=== PATIENT | female | born 1940 | race Caucasian/White ===

== ENCOUNTER 2017-11-19 08:56 | Day surgery (SDC) | payer MEDICARE, OTHER, SELFPAY ==
--- NOTE | 2017-11-19 09:15 | EKG12_ITS ---
Test Reason : PREOP Blood Pressure : / mmHG Vent. Rate : 087 BPM Atrial Rate : 087 BPM P-R Int : 182 ms QRS Dur : 092 ms QT Int : 362 ms P-R-T Axes : 054 012 022 degrees QTc Int : 435 ms Normal sinus rhythm Normal ECG No previous ECGs available Confirmed by LUC HERNANDEZ, KATY ([id number]), publishing editor ESTEE CLARK ([id number]) on 11/23/2017 1:07:03 PM Referred By: Holden Tsang Confirmed By:KATY CALLE MD
--- NOTE | 2017-11-19 09:19 | RAD_ITS ---
STUDY: X-RAY CHEST REASON FOR EXAM: Female, 77 years old. SOB, PRE OP FOR LEFT WRIST FX TECHNIQUE: Single AP portable view of the chest. COMPARISON: None. FINDINGS: The lungs are clear and expanded. There is no demonstrated pleural abnormality. Normal size heart. Normal mediastinum and krissy. Normal visualized pulmonary arteries. Normal visualized aortic arch and descending thoracic aorta. There is demineralization of the osseous structures. There is degenerative osteoarthritis of the bilateral shoulders. There is a hiatal hernia measures 5 cm. RAD/Chest 1 View (Portable) IMPRESSION: Degenerative changes, as described above. No demonstrated acute cardiopulmonary process. There is a hiatal hernia measures 5 cm. Electronically Signed: Padmini Valente MD at 10:23 EDT Tel , Service support ,
[2017-11-19 09:45] VITALS: BP 130/71; PULSE 88; RESP 20; TEMP 37.2; O2SAT 94; BMI 28.0
[2017-11-19 10:01] LABS: Hematocrit 33.7 % (37-47); Mean Corp Hgb Conc 32.6 g/gl (32-36); Mean Corpuscular Hgb 29.6 pg (27.0-32.0); Mean Corpuscular Volume 90.8 fL (81-99); Mean Platelet Vol. 8.7 fl (6.2-12.0); Platelet Count 308 K/mm3 (150-450); RBC Distribution Width CV 14.4 % (11.6-14.6); Red Blood Count 3.71 M/mm3 (4.2-5.4); White Blood Count 6.1 K/mm3 (4.4-11.0)
[2017-11-19 10:06] LABS: Scan Indicated on CBC? Y/N NO
[2017-11-19 10:13] LABS: AST(SGOT) 14 U/L (15-37); Alanine Aminotransfer ALT/SGPT 13 U/L (13-56); Albumin, Serum 2.9 g/dL (3.2-5.0); Alkaline Phosphatase 67 U/L (45-117); Anion Gap 6 (5-15); BUN 12 mg/dL (7-18); BUN/Creat Ratio 9.2 RATIO (10-20); Bilirubin, Direct 0.07 mg/dL (0.00-0.30); Chloride 105 mmol/L (98-107); Creatinine, Serum 1.31 mg/dL (0.55-1.02); EST Glomerular Filtration Rate 42 mL/min (>60); Est Glom Filt Rate - Afr Amer 51 mL/min (>60); Estimated Creatinine Clearance 33.39 ml/min; Globulin 4.4 g/dL (2.2-4.2); Glucose 100 mg/dL (74-106); Potassium 3.9 mmol/L (3.5-5.1); Protein, Total 7.3 g/dL (6.4-8.2); Sodium Level 139 mmol/L (136-145)
[2017-11-19 10:21] LABS: Partial Thromboplast Time 24.7 Seconds (24.1-36.2)
[2017-11-19] MEDS: Cefazolin 1 GM/50 ML BAG IV (11:12)
--- NOTE | 2017-11-19 11:16 | PCM.DC.ORTHO ---
Discharge Diet: No Restrictions Discharge Activity: May Not Drive, May Shower - keep dressing clean and dry Ice area for (Minutes): 20 Keep extremity elevated above heart level: Left Arm Call your doctor if your incision/area has: Continuous Slow Oozing, Sudden Increased Bleeding, Increased Pain/ Swelling, Increased Redness, Foul Smelling Discharge Call your doctor if you observe: Fever of 101 or Higher, Coldness, Increased Pain, Numbness or Tingling, Change in Color Suture Line Care: Avoid Pulling/Pushing Cleanse incision/area with: Keep Dressing Clean & Dry - Do not remove dressing Allergies/Adverse Reactions: Allergies atorvastatin calcium [From Lipitor] Allergy (Verified 11/15/17 10:04) Unknown Penicillins Allergy (Verified 11/19/17 09:43) Hives propoxyphene HCl [From Darvon] Allergy (Verified 11/15/17 10:04) Other Sulfa (Sulfonamide Antibiotics) Allergy (Verified 11/15/17 10:04) Unknown codeine Adverse Reaction (Verified 11/15/17 10:04) Upset Stomach oxycodone [From Percocet] Adverse Reaction (Verified 11/19/17 09:42) Vomiting Medications to take at Discharge Aspirin 325 mg PO DAILY@0800 03/06/16 Folic Acid 1 mg PO DAILY@0800 03/06/16 Melatonin 3 mg PO QHS 03/06/16 Omeprazole [Prilosec] 20 mg PO DAILY 03/06/16 Thiamine HCl [B-1] 100 mg PO DAILY 03/06/16 Calcium Carbonate [Tums] 500 mg PO Q6H PRN PRN 04/18/16 Lamotrigine [Lamictal Xr] 200 mg PO DAILY 04/18/16 Vitamin B Comp W-C [Allbee W/C Caplet, Thera B Comp/C] 1 capsule PO DAILY 04/18/16 Donepezil HCl [Aricept] 10 mg PO QHS 05/01/16 losartan 25 mg tablet 25 mg PO QDAY #30 tab 10/24/17 Cholecalciferol (Vitamin D3) [Vitamin D3] 5,000 unit PO DAILY 11/15/17 Lorazepam [Ativan] 0.5 mg PO DAILY PRN PRN 11/15/17 Mirtazapine 30 mg PO QHS 11/15/17 Tramadol HCl [Ultram] 50 mg PO Q6H PRN PRN 7 Days #40 tablet 11/19/17 The following prescriptions were given: Tramadol HCl [Ultram] 50 mg PO Q6H PRN PRN 7 Days #40 tablet PRN Reason: Pain Please Follow Up With: Holden Tsang, DO When: next week
--- NOTE | 2017-11-19 11:21 | PCM.OPRPT ---
Report of Operation Date of Procedure: 11/19/17 Pre-Operative Diagnosis: Left distal radius fracture displaced Post-Operative Diagnosis: Left distal radius fracture displaced Surgery/Procedure Performed:: Closed reduction with percutaneous pin fixation of left distal radius Description of Surgical Findings:: Displaced and angulated distal radius fracture plastic tool maker: Miguel Villanueva Type of Anesthesia:: General Anesthesiologist: Trever Amos Estimated Blood Loss (mL): 5 Fluids Replaced: See anesthesia report Description of Procedure: Implants: 0.054 inch K wire ?3 Surgical indications: Please see history and physical Procedure description: Dolores was greeted in the preoperative area. Her left wrist was marked with surgical marker. Preoperative antibiotics were administered. Patient was then taken or [address] the stable condition. After adequate anesthesia was obtained and airway secured the arm was prepped and draped in usual sterile fashion. Surgical timeout was performed and surgery was commenced. Biplanar fluoroscopic imaging was utilized to identify the fracture. This was displaced and shortened with dorsal angulation. A closed reduction maneuver was then performed in the wrist was then held in a reduced fashion and a K wire was placed in the dorsal lip of the radius advanced into the bone and secured to the volar cortex of the radius. This was done on 2 separate occasions maintaining the reduction. Third K wire was then placed at the tip of the radial styloid. This was then advanced into the styloid across the fracture site and then into the lateral cortex of the radius securing this reduction. Final imaging was obtained. The pins were then bent and trimmed at the skin well-padded nonadherent dressings applied and secured with a volar Ortho-Glass splint. Patient was taken to recovery room in stable condition. - Complications None known - Admit VTE Documentation VTE Present on Admission: Yes VTE Mechan Device Prophylaxis: None VTE Pharm Prophylaxis ordered?: No Reason prophylaxis not ordered:: Procedure Not Indicated
[2017-11-19 12:01] VITALS: BP 129/75; BP 130/71; PULSE 92; RESP 16; TEMP 37; O2SAT 98
[2017-11-19 12:15] VITALS: BP 124/79; BP 130/71; PULSE 90; RESP 16; O2SAT 95
[2017-11-19 12:30] VITALS: BP 130/71; BP 155/88; PULSE 85; RESP 16; O2SAT 97
[2017-11-19 12:33] VITALS: BP 130/71; BP 148/81; PULSE 83; RESP 16; TEMP 36.8; O2SAT 96
[2017-11-19 14:27] VITALS: BP 130/71
--- NOTE | 2017-11-19 22:05 | RAD_ITS ---
CLINICAL HISTORY: Female, 77 years old. Lower back pain PROCEDURE: Percutaneous pinning lt wrist FLUOROSCOPY TIME (if supplied): (29.8) seconds. 3 Images. RADIATION DOSAGE (If Supplied By Facility): CTDIvol = ( ) mGy, DLP = ( ) mGycm TECHNIQUE: Percutaneous pinning lt wrist RAD/Wrist min 3 Views IMPRESSION: Percutaneous pinning lt wrist Electronically Signed: Padmini Valente MD at 14:40 EDT Tel , Service support ,
== END 2017-11-19 14:28 | disposition home or self-care (01) ==
LOC: SDC 08:58 → AC 09:00
PROVIDERS: Anesthesiology; Family Provider Family Medicine; PCP Family Medicine; Visit Provider Orthopaedic Surgery
PROC: (CPT 25609; principal; 2017-11-19 10:40)
DX: S52.572A Other intraarticular fracture of lower end of left radius, initial encounter for closed fracture (principal); I10 Essential (primary) hypertension; K21.9 Gastro-esophageal reflux disease without esophagitis; F41.9 Anxiety disorder, unspecified; E66.3 Overweight; Z68.33 Body mass index [BMI] 33.0-33.9, adult; Z86.2 Personal history of diseases of the blood and blood-forming organs and certain disorders involving the immune mechanism; Z85.3 Personal history of malignant neoplasm of breast; Z79.82 Long term (current) use of aspirin; Z87.891 Personal history of nicotine dependence; Z79.899 Other long term (current) drug therapy; W01.0XXA Fall on same level from slipping, tripping and stumbling without subsequent striking against object, initial encounter; Y93.89 Activity, other specified; Y92.89 Other specified places as the place of occurrence of the external cause; Y99.8 Other external cause status
CPT/HCPCS: 25609; 36416; 71045; 73110; 76000; 80048; 80076; 85027; 85610; 85730; 93005; J7120; J2405

== ENCOUNTER → 2018-06-25 09:03 | Outpatient (CLI) | payer MEDICARE, OTHER, SELFPAY ==
--- NOTE | 2018-06-25 09:04 | NM_ITS ---
CLINICAL: 78-year-old female with reported history of chronic nausea. SEMI-SOLID PHASE 99m Tc SULFUR COLLOID GASTRIC EMPTYING STUDY COMPARISON: None available FINDINGS: The patient was administered 1.1 mCi of 99m Tc sulfur colloid mixed with oatmeal and consumed per os. Image acquisitions in the anterior-posterior projections for a total of 60 minutes. There is prompt visualization of the stomach. There is no gastroesophageal reflux identified. The T1/2 linear fit was calculated to be 53.7 minutes, (Normal: 12-56 minutes). NM/Gastric Emptying Study IMPRESSION: 1. NORMAL 99m Tc sulfur colloid semi-solid phase (oatmeal) gastric emptying imaging examination. A. There is upper limits of normal, relatively preserved semi-solid phase gastric emptying compared to normal controls with maintained first order kinetics throughout all components of the examination. (Jacqueline et al, J Nucl Med Tech 38: 186, 2010). Electronically Signed: Joshua Bautista DO at 23:43 EST Tel , Service support ,
== END ==
PROVIDERS: Family Provider Preventive Medicine Occupational Medicine; PCP Preventive Medicine Occupational Medicine; Referring Provider Internal Medicine Medical Oncology; Visit Provider Internal Medicine Medical Oncology
DX: R11.2 Nausea with vomiting, unspecified (principal)
CPT/HCPCS: 78264; A9541

== ENCOUNTER → 2019-02-06 | Outpatient (CLI) | payer MEDICARE, OTHER, SELFPAY ==
[2018-08-14 11:29] VITALS: BMI 30.4
--- NOTE | 2019-02-06 14:56 | RAD_ITS ---
HISTORY: Unequal limb length, recent right femur ORIF October 2018. Y STILL XR Bone Length Studies Scanograms TECHNIQUE: Standing AP radiographs of the pelvis and lower extremities were obtained. # of images incl. paperwork: 7 COMPARISON: None. FINDINGS: FINDINGS Right lower extremity from the top of the femoral head through the tibial plafond measures 72.5 cm. Left lower extremity from the top of the femoral head through the tibial plafond measures 74.5 cm. Right femur from the top of the femoral head through the medial femoral condyle measures 40.5 cm. Left emur from the top of the femoral head through the medial femoral condyle measures 42.0 cm. Right tibia from the intercondylar eminence through the tibial plafond measures 32.0 cm. Left tibia from the intercondylar eminence through the tibial plafond measures 32.5 cm. IMPRESSION Leg discrepancy with shortening of right lower extremity by 2.0 cm. at 1511 Reported and signed by: Demetrio Laureano MD Electronically Signed: Demetrio Laureano MD at 15:09 EDT Tel , Service support , RAD/Bone Length
== END | disposition home or self-care (01) ==
LOC: RAD 14:51
PROVIDERS: Family Provider Preventive Medicine Occupational Medicine; PCP Preventive Medicine Occupational Medicine; Referring Provider Specialist; Visit Provider Specialist
DX: M21.751 Unequal limb length (acquired), right femur (principal)
CPT/HCPCS: 77073

== ENCOUNTER 2020-10-20 10:50 | Emergency (ER) | payer MEDICARE, OTHER, SELFPAY ==
[2020-06-02 14:34] VITALS: BMI 29.7
[2020-10-20 10:50] VITALS: BP 113/67; PULSE 69; RESP 18; TEMP 36.6; O2SAT 99; BMI 28.3
[2020-10-20] MEDS: 0.9% Normal Saline 1,000 ML 1000 ML IV (11:30)
[2020-10-20] MEDS: Ondansetron 4 MG/2 ML Vial IV (11:30)
[2020-10-20 11:34] LABS: Absolute Neutrophil Count 5.9 X10^3/uL (2.0-7.7); Basophil# 0.03 X10^3/uL; Basophil% 0.4 % (0-1); Eosinophil# 0.11 X10^3/uL; Eosinophils% 1.3 % (0-5); Hemoglobin 13.2 g/dL (12.0-15.0); Lymphocyte % 19.2 % (19-41); Mean Corpuscular Hgb 28.9 pg (27.0-32.0); Mean Corpuscular Volume 87.5 fL (81-99); Mean Platelet Vol. 11.4 fl (6.2-12.0); Monocyte# 0.63 X10^3/uL; Monocyte% 7.6 % (0-10); NRBC Flagged by Analyzer 0.2 % (0-5); Neutrophil # 5.94 X10^3/uL (2.7-7.7); Neutrophil % 71.1 % (47-70); Platelet Count 281 K/mm3 (150-450); RBC Distribution Width CV 14.5 % (11.6-14.6); RBC Distribution Width SD 45.4 fl (35.1-43.9); Red Blood Count 4.57 M/mm3 (4.2-5.4); White Blood Count 8.3 K/mm3 (4.4-11.0)
--- NOTE | 2020-10-20 11:40 | RAD_ITS ---
STUDY: X-RAY CHEST REASON FOR EXAM: Female, 80 years old. Chest pain TECHNIQUE: AP and lateral views of the chest. COMPARISON: Comparison is made with prior study dated 11/19/2017. FINDINGS: Surgical clips are seen in the left axillary region. The lungs are clear and expanded. There is no demonstrated pleural abnormality. Normal size heart. Normal mediastinum and krissy. Normal visualized pulmonary arteries. There is atherosclerotic calcification of the aortic arch with tortuosity. A loop recorder device is seen overlying the left cardiac border. There is demineralization of the osseous structures. Almost complete collapse of the mid dorsal vertebrae. Prior vertebroplasty of the T12 and L1 vertebrae. Normal visualized ribs, clavicles, and shoulders. There is no demonstrated abnormality of the visualized soft tissue structures of the upper abdomen. RAD/Chest PA and Lateral IMPRESSION: No acute abnormality is seen. Electronically Signed: Raul Dailey MD at 12:05 EST , Service support ,
[2020-10-20 11:47] LABS: ALB/GLOB Ratio 0.8 RATIO (0.9-2.4); AST(SGOT) 17 U/L (15-37); Alanine Aminotransfer ALT/SGPT 9 U/L (13-56); Albumin, Serum 3.4 g/dL (3.2-5.0); Alkaline Phosphatase 96 U/L (45-117); Anion Gap 9 (5-15); BUN 11 mg/dL (7-18); BUN/Creat Ratio 10.3 RATIO (10-20); Calcium,Total 9.4 mg/dL (8.5-10.1); Chloride 100 mmol/L (98-107); Creatinine, Serum 1.07 mg/dL (0.55-1.02); EST Glomerular Filtration Rate 53 mL/min (>60); Est Glom Filt Rate - Afr Amer 64 mL/min (>60); Estimated Creatinine Clearance 35.84 ml/min; Globulin 4.5 g/dL (2.2-4.2); Glucose 83 mg/dL (74-106); Magnesium 2.2 mg/dL (1.6-2.6); Potassium 3.6 mmol/L (3.5-5.1); Protein, Total 7.9 g/dL (6.4-8.2); Sodium Level 137 mmol/L (136-145)
--- NOTE | 2020-10-20 12:27 | ED.VIS.GEN ---
History of Present Illness Chief Complaint: Dizziness Narrative: Patient presenting for evaluation secondary to lightheadedness. Patient was at the ENT office today for treatment of vertigo. She had an Thomas maneuver performed, and had improvement of her vertigo but was complaining of persistent issues with dizziness that she describes as a lightheadedness. Patient is actually been dealing with this over the course of the last month. She has been having issues with regurgitating fluids and food after eating and drinking. She reports that she will have multiple episodes of this every day. Patient denies that it necessarily associated with pain. She is able to swallow things, but then vomits them up shortly thereafter. She states that she is feels as if she is getting dehydrated, ENT sent her to the emergency department due to concerns for that. She denies any chest pain or shortness of breath. Patient has had work-ups for this in the past. She was seen at an outside facility emergency department and was thought to have an element of anxiety and was recently started on twice daily Ativan. No fevers associated with this. No throat pain associated with this. Review of systems otherwise negative. Past Medical History - Allergies and Home Meds Allergies/Adverse Reactions: Allergies atorvastatin calcium [From Lipitor] Allergy (Verified 10/20/20 10:53) Unknown Penicillins Allergy (Verified 10/20/20 10:53) Hives propoxyphene HCl [From Darvon] Allergy (Verified 10/20/20 10:53) Other Sulfa (Sulfonamide Antibiotics) Allergy (Verified 10/20/20 10:53) Unknown codeine Adverse Reaction (Verified 10/20/20 10:53) Upset Stomach iron Adverse Reaction (Verified 10/20/20 10:53) Vomiting oxycodone [From Percocet] Adverse Reaction (Verified 10/20/20 10:53) Vomiting Primary Care Physician: Chris Mendes MD [Primary Care Provider] - Prior records reviewed: Yes Past Medical History: - - Dysphagia, hypertension, dementia, atrial fibrillation Surgical History: cataract, hysterectomy, mastectomy, - - Loop records implant. Lives: Alone Smoking Status: Former smoker Alcohol: None Drugs: None - Family History Paternal Family History: Reports: - - Father had a cerebral aneurysm Sibling Family History: Reports: Cancer - Sister with breast cancer Maternal Family History: Reports: Cancer - Mother had breast cancer, No pertinent history Review of Systems All systems negative except as indicated General: Reports: - - Lightheadedness. Denies: Weight loss Eyes: Denies: Visual changes - bilaterally, Diplopia ENT: Reports: - - If occult he swallowing with frequent vomiting Cardiovascular: Denies: Chest pain, Palpitations Respiratory: Denies: Dyspnea, Cough, Dyspnea on exertion Gastrointestinal: Denies: Abdominal pain, Nausea, Vomiting, Diarrhea, Melena, Hematochezia Genitourinary: Denies: Dysuria, Hematuria, Frequency Musculoskeletal: Denies: Back pain, Extremity Pain Skin: Denies: Rash, Wounds Neurological: Denies: Headache, Weakness, Numbness Physical Exam Vital Signs/Narrative: Vital Signs Temp Pulse Resp BP Pulse Ox 10/20/20 10:50 98 F 69 18 113/67 99 Inital Vital Signs reviewed: Yes General: Well nourished, Well developed, - - Elderly female who appears anxious but is otherwise not in physiologic distress Head: Normocephalic, Atraumatic Eyes: Perrl, EOMI ENT: Moist mucous membranes, No rhinorrhea Neck: Supple, Nontender Cardiovascular: Regular rate, Regular rhythm, No murmurs Respiratory: No distress, CTA bilaterally, Chest nontender Abdomen: Soft, Nontender, Nondistended, Normal bowel sounds Back: Nontender, Normal Inspection Extremities: Nontender, No edema Skin: Normal color, No rash Neurological: Alert, Oriented x3, Cranial nerves II-XII grossly intact, Normal Strength, Normal Sensation Psychological: - - Anxious Diagnostic/Tx/Re-eval Chest X-Ray - ED: 2 View, Read by ED Physician, Normal Clinical Impression(s) from Imaging Studies Chest X-Ray 10/20/20 11:40 IMPRESSION: No acute abnormality is seen. Electronically Signed: Raul Dailey MD at 12:05 EST , Service support , Laboratory Data 10/20/20 10/20/20 11:25 11:25 WBC 8.3 RBC 4.57 Hgb 13.2 Hct 40.0 MCV 87.5 MCH 28.9 MCHC 33.0 RDW Std Deviation 45.4 H RDW Coeff of Junaid 14.5 Plt Count 281 MPV 11.4 Immature Gran % (Auto) 0.400 Neut % (Auto) 71.1 H Lymph % (Auto) 19.2 [place] % (Auto) 7.6 Eos % (Auto) 1.3 Baso % (Auto) 0.4 Absolute Neuts (auto) 5.9 Absolute Lymphs (auto) 1.60 Nucleated RBC % 0.2 Sodium 137 Potassium 3.6 Chloride 100 Carbon Dioxide 28.0 Anion Gap 9 BUN 11 Creatinine 1.07 H Estim Creat Clear Calc 35.84 Est GFR (MDRD) Af Amer 64 Est GFR (MDRD) Non-Af 53 L BUN/Creatinine Ratio 10.3 Glucose 83 Calcium 9.4 Magnesium 2.2 Total Bilirubin 0.70 AST 17 ALT 9 L Alkaline Phosphatase 96 Total Protein 7.9 Albumin 3.4 Globulin 4.5 H Albumin/Globulin Ratio 0.8 L - Medical Decision Making Patient presented with reports that she was having difficulty with keeping down food or liquids. She does not state that this is a difficulty swallowing but rather regurgitation after she eats or drinks. IV was established patient was given a liter of saline and Zofran. Patient's CBC chemistry and magnesium were found to be unremarkable she actually has better renal function than she did in May. No electrolyte derangements. Patient passed p.o. challenge in the emergency department. I reviewed the patient's records, she has had gastric emptying studies as well as barium swallows that show some potential delayed emptying, as well as some aspiration with her barium swallow in the past. At this point she is tolerating p.o. and has no electrolyte derangements and I do not feel that she requires admission. I believe the patient can safely be referred to general surgery for upper endoscopy as an outpatient. Patient was discharged in stable condition. ED Disposition - Plan for ED Patient: Disposition: Home or Assisted Living Diagnosis: Emesis Instructions: ED Dehydration (Adult) Referrals: Fantasma Jolley MD [STAFF PHYSICIAN] - As soon as possible
[2020-10-20] MEDS: 0.9% Normal Saline 1,000 ML 999 ML IV (12:42)
[2020-10-20 12:50] VITALS: BP 119/71; PULSE 66; RESP 18; O2SAT 96
[2020-10-20 15:18] VITALS: BP 121/77; PULSE 65; RESP 18; O2SAT 96
== END 2020-10-20 15:22 | disposition home or self-care (01) ==
PROVIDERS: Emergency Provider Emergency Medicine; PCP Family Medicine
DX: R11.10 Vomiting, unspecified (principal); I10 Essential (primary) hypertension; F03.90 Unspecified dementia, unspecified severity, without behavioral disturbance, psychotic disturbance, mood disturbance, and anxiety; I48.91 Unspecified atrial fibrillation; Z79.02 Long term (current) use of antithrombotics/antiplatelets; Z79.899 Other long term (current) drug therapy; Z87.891 Personal history of nicotine dependence
CPT/HCPCS: 71046; 80053; 83735; 85025; 96361; 96374; 99282; J7030; A4216; J2405

== ENCOUNTER 2020-10-27 11:11 | Day surgery (SDC) | payer MEDICARE, OTHER, SELFPAY ==
[2020-10-25 10:22] VITALS: BMI 28.2
[2020-10-27] VITALS (7 sets, daily range): BP systolic 121–135; BP diastolic 73–85; PULSE 88–103; RESP 16–18; TEMP 36.3–36.6; O2SAT 97–100; BMI 25.7
--- NOTE | 2020-10-27 08:21 | HP_ITS ---
Intake Vital Signs 10/25/20 Height 5 ft 3 in 10/25/20 Weight: 159 lb 4 oz 10/25/20 BMI 28.2 10/25/20 BP 87/54 L 10/25/20 Blood Pressure Location Lt brachial 10/25/20 Position Sitting 10/25/20 Respiration 16 10/25/20 Pulse 84 10/25/20 Pulse Source NIBP 10/25/20 Temp 98.1 F 10/25/20 Temp Source Temporal 10/25/20 Pulse Oximetry (%) 97 10/25/20 Oxygen Delivery Method room air Intake Visit Reasons: ER F/U EGD, EMESIS Chief Complaint: EGD/ emesis Ant[employer] Collector Required: No Is patient in pain?: No Allergies atorvastatin calcium [From Lipitor] Allergy (Verified 10/25/20 10:21) Unknown Penicillins Allergy (Verified 10/25/20 10:21) Hives propoxyphene HCl [From Darvon] Allergy (Verified 10/25/20 10:21) Other Sulfa (Sulfonamide Antibiotics) Allergy (Verified 10/25/20 10:21) Unknown codeine Adverse Reaction (Verified 10/25/20 10:21) Upset Stomach iron Adverse Reaction (Verified 10/25/20 10:21) Vomiting oxycodone [From Percocet] Adverse Reaction (Verified 10/25/20 10:21) Vomiting Medications Propranolol HCl [Inderal (Beta Seth)] 20 mg PO BID 06/19/18 [History Confirmed 10/25/20] Carbidopa/Levodopa [Sinemet] 2 tab PO QHS 07/02/18 [History Confirmed 10/25/20] lorazepam 0.5 mg tablet 0.5 mg PO BID-TID PRN 07/19/18 [History Confirmed 10/25/20] lamotrigine 25 mg tablet 25 mg PO DAILY tab 02/13/19 [History Confirmed 10/25/20] rivaroxaban 15 mg tablet 15 mg PO DAILY #30 tab 02/17/20 [Rx Confirmed 10/25/20] Pantoprazole Sodium [Protonix] 40 mg PO DAILY 06/02/20 [History Confirmed 10/25/20] Promethazine HCl 25 mg PO DAILY 06/02/20 [History Confirmed 10/25/20] Is last menstrual period known: No Post menopausal: Yes Patient : No PFSH Medical History Iron deficiency (Resolved) Dementia (Chronic) Essential hypertension (Chronic) Paroxysmal A-fib (Chronic) GERD (gastroesophageal reflux disease) (Chronic) History of breast cancer (Chronic) Syncope (Chronic) Leukocytosis (Acute) Anemia (Chronic) Anxiety (Chronic) Bipolar disorder (Chronic) Dysphagia (Acute) Iron deficiency anemia (Chronic) Compression fracture of L1 lumbar vertebra (Acute) Chronic use of benzodiazepine for therapeutic purpose (Chronic) C. difficile diarrhea (Acute) Diverticulitis large intestine (Acute) Fall (Acute) Intestinal malabsorption, unspecified (Acute) Vertigo (Acute) History of CVA (cerebrovascular accident) (Chronic) Parkinsons disease (Chronic) Restless leg (Chronic) Cephalalgia (Resolved) Dehydration (Resolved) HAP (hospital-acquired pneumonia) (Resolved) Hypokalemia (Resolved) Hypomagnesemia (Resolved) Hypophosphatemia (Resolved) Nausea and vomiting (Resolved) Sepsis (Resolved) Severe sepsis (Resolved) Vomiting (Resolved) Surgical History Hip fracture, right (Resolved) History of bilateral mastectomy (Resolved) History of hysterectomy (Resolved) History of mastectomy (Inactive) Family History (Updated 10/25/20 @ 10:21 by [place]) Other Breast cancer Hypertension Social History (Updated 10/25/20 @ 10:[address] Fantasma Jolley MD) Smoking Status: Former smoker HPI HPI HPI: KATERIN SANDOVAL, is a 80 F who presents to the office today for HPI HPI Surgical H&P: Yes HPI: KATERIN SANDOVAL, is a 80 F who presents to the office today for Dysphagia. The patient reports that she is not able to tolerate any eating and immediately throws up. She says it is undigested. She says is been going on since September. She has no chest pain or abdominal pain. No blood in her stool. She reports that she does have liquid stool when she does a bowel movement she is having weight loss and dehydration due to not being able to eat. ROS General General: Yes weight change, fatigue and breast cancer; no appetite, colon cancer or weakness HEENT HEENT: Yes difficulty swallowing; no eye injury, eye surgery, swollen glands or hoarseness Endo Endocrine: No thyroid disease, diabetes mellitus, thyroid cancer, Hair loss, heat intolerance or cold intolerance Musc Musculoskeletal: Yes arthritis; no back problems, rheumatoid arthritis, gout or joint pain Cardio Cardiovascular: Yes atrial fibrillation and high blood pressure; no murmur, pacemaker, heart disease, heart attack, heart stent, palpitations, shortness of breat with exertion or chest pain Psych Psychiatric: Yes depression and anxiety; no hearing voices Resp Respiratory: No shortness of breath, No sleep apnea, No cough, No COPD, No asthma, No emphysema, No wheezing Gastro Gastrointestinal: No abdominal pain, Yes nausea or vomiting, Yes diarrhea, No constipation, No blood in stool, Yes acid reflux, No hemorrhoids, No ulcers, No gallbladder problem, No black,tarry stools [place] Hematologic: No blood thinners, No blood disorders, No bleeding, No anemia, No blood clots Neuro Neurologic: No weakness Exam Const General: cooperative, anxious Orientation: alert, oriented x3 Resp Effort & Inspection: normal respiratory effort Auscultation: clear to auscultation bilaterally Cardio Rate: regular rate Rhythm: regular rhythm Heart Sounds: no murmurs GI Inspection: non-distended Palpation: soft, nontender Assessment & Plan Problems 1. Dysphagia R13.10 aspirates thin liquids on the MBS Plan The patient is very tearful and anxious. She says that she has ongoing vertigo with dizziness but this is a new symptom and she is unable to tolerate solid or liquid. I discussed EGD with her with possible dilation. I will have her hold her Xarelto for 2 days. I explained endoscopy in detail to the patient. I explained the risks including but not limited to stroke or heart attack with anesthesia, perforation of the GI tract, bleeding, infection. I explained that any of these could necessitate further emergency surgery. The patient understands and all questions were answered sufficiently. The patient wishes to proceed with procedure. Fantasma Jolley MD Pager: [facility] [address] [place] [address], [address] [place] [address] Office: Orders Orders: EGD Today R13.10 Coding Level of Care Code Off vis,new,level 3 Diagnoses Dysphagia R13.10 ??Dysphagia type: unspecified I have re-examined the patient. There are no clinical changes since date of exam.
[2020-10-27] MEDS: Lactated Ringers 1,000 ML 100 ML IV (12:10)
--- NOTE | 2020-10-27 13:33 | OP.CCLET_ITS ---
10/27/2020 Chris Mendes Re : Upper GI endoscopy procedure for Dolores Wright Dear Vaughn This procedure was performed on Tuesday, October 27, 2020. My impressions and recommendations are as follows: Impressions : - Benign-appearing esophageal stenosis. - Normal stomach. - Normal examined duodenum. - No specimens collected. Recommendations : - Discharge patient to home. - Resume previous diet. - Continue present medications. My findings are described in the full procedure note, which is enclosed. If I can be of further assistance, please feel free to contact me at Doctor phone number(s): , Work: . Sincerely, Fantasma Jolley MD 10/27/2020 1:32:35 PM This report has been signed electronically.
--- NOTE | 2020-10-27 13:33 | OP.EGD_ITS ---
Patient Name: Dolores Wright Procedure Date: 10/27/2020 12:46 PM Date of : 1940 Age: 80 Procedure: Upper GI endoscopy Indications: Dysphagia Providers: Fantasma Jolley MD Referring MD: Fantasma Jolley MD Medicines: Monitored Anesthesia Care Patient Profile: This is a 80 year old female. Refer to note in patient chart for documentation of history and physical. Complications: No immediate complications. Procedure: Pre-Anesthesia Assessment: - Prior to the procedure, a History and Physical was performed, and patient medications and allergies were reviewed. The patient's tolerance of previous anesthesia was also reviewed. The risks and benefits of the procedure and the sedation options and risks were discussed with the patient. All questions were answered, and informed consent was obtained. Prior Anticoagulants: The patient has taken Xarelto (rivaroxaban), last dose was 2 days prior to procedure. After reviewing the risks and benefits, the patient was deemed in satisfactory condition to undergo the procedure. After obtaining informed consent, the endoscope was passed under direct vision. Throughout the procedure, the patient's blood pressure, pulse, and oxygen saturations were monitored continuously. The gastroscope was introduced through the mouth, and advanced to the third part of duodenum. The upper GI endoscopy was accomplished without difficulty. The patient tolerated the procedure well. Scope In: 12:53:49 PM Scope Out: 12:58:13 PM Total Procedure Duration Time 0 hours 4 minutes 24 seconds Findings: One benign-appearing, intrinsic stenosis was found in the proximal esophagus. This stenosis was moderately severe (circumferential scarring or stenosis; an endoscope may pass) and. The stenosis was traversed. The stomach was normal. The examined duodenum was normal. Impression: - Benign-appearing esophageal stenosis. - Normal stomach. - Normal examined duodenum. - No specimens collected. Recommendation: - Discharge patient to home. - Resume previous diet. - Continue present medications. Procedure Code(s): --- Professional --- 16848, Esophagogastroduodenoscopy, flexible, transoral; diagnostic, including collection of specimen(s) by brushing or washing, when performed (separate procedure) Diagnosis Code(s): --- Professional --- K22.2, Esophageal obstruction R13.10, Dysphagia, unspecified CPT copyright 2017 [place]. All rights reserved. The codes documented in this report are preliminary and upon planning specialist review may be revised to meet current compliance requirements. Fantasma Jolley MD 10/27/2020 1:32:35 PM This report has been signed electronically. Number of Addenda: 0 Note Initiated On: 10/27/2020 12:46 PM
== END 2020-10-27 14:18 | disposition home or self-care (01) ==
LOC: EN 11:13 → AC 11:14
PROVIDERS: PCP Family Medicine; Referring Provider Surgery; Visit Provider Surgery
PROC: 0DJ08ZZ Inspection of Upper Intestinal Tract, Via Natural or Artificial Opening Endoscopic (ICD-10-PCS; CPT 43235; principal; 2020-10-27 12:25)
DX: K22.2 Esophageal obstruction (principal); I48.0 Paroxysmal atrial fibrillation; K21.9 Gastro-esophageal reflux disease without esophagitis; G20 Parkinson's disease; F02.80 Dementia in other diseases classified elsewhere, unspecified severity, without behavioral disturbance, psychotic disturbance, mood disturbance, and anxiety; F32.9 Major depressive disorder, single episode, unspecified; F41.9 Anxiety disorder, unspecified; Z86.73 Personal history of transient ischemic attack (TIA), and cerebral infarction without residual deficits; Z20.822 Contact with and (suspected) exposure to COVID-19; Z79.02 Long term (current) use of antithrombotics/antiplatelets; Z79.899 Other long term (current) drug therapy; Z87.891 Personal history of nicotine dependence
CPT/HCPCS: 43235; 87426; C9803; J7120; J2405

== ENCOUNTER 2020-10-29 12:55 | Day surgery (SDC) | payer MEDICARE, OTHER, SELFPAY ==
[2020-10-29] VITALS (7 sets, daily range): BP systolic 118–136; BP diastolic 69–77; PULSE 65–93; RESP 16; TEMP 35.7–36.5; O2SAT 96–98; BMI 25.6
--- NOTE | 2020-10-29 05:36 | HP_ITS ---
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 Is patient in pain?: No Allergies atorvastatin calcium [From Lipitor] Allergy (Verified 10/27/20 11:39) Unknown Penicillins Allergy (Verified 10/27/20 11:39) Hives propoxyphene HCl [From Darvon] Allergy (Verified 10/27/20 11:39) Other Sulfa (Sulfonamide Antibiotics) Allergy (Verified 10/27/20 11:39) Unknown codeine Adverse Reaction (Verified 10/27/20 11:39) Upset Stomach iron Adverse Reaction (Verified 10/27/20 11:39) Vomiting oxycodone [From Percocet] Adverse Reaction (Verified 10/27/20 11:39) Vomiting Is last menstrual period known: No Post menopausal: Yes Patient : No PFSH Medical History Iron deficiency (Resolved) Dementia (Chronic) Essential hypertension (Chronic) Paroxysmal A-fib (Chronic) GERD (gastroesophageal reflux disease) (Chronic) History of breast cancer (Chronic) Syncope (Chronic) Leukocytosis (Acute) Anemia (Chronic) Anxiety (Chronic) Bipolar disorder (Chronic) Dysphagia (Acute) Iron deficiency anemia (Chronic) Compression fracture of L1 lumbar vertebra (Acute) Chronic use of benzodiazepine for therapeutic purpose (Chronic) C. difficile diarrhea (Acute) Diverticulitis large intestine (Acute) Fall (Acute) Intestinal malabsorption, unspecified (Acute) Vertigo (Acute) History of CVA (cerebrovascular accident) (Chronic) Parkinsons disease (Chronic) Restless leg (Chronic) Cephalalgia (Resolved) Dehydration (Resolved) HAP (hospital-acquired pneumonia) (Resolved) Hypokalemia (Resolved) Hypomagnesemia (Resolved) Hypophosphatemia (Resolved) Nausea and vomiting (Resolved) Sepsis (Resolved) Severe sepsis (Resolved) Vomiting (Resolved) Surgical History Hip fracture, right (Resolved) History of bilateral mastectomy (Resolved) History of hysterectomy (Resolved) History of mastectomy (Inactive) Family History Other Breast cancer Hypertension Social History (Updated 10/28/20 @ 15:[address] Fantasma Jolley MD) Smoking Status: Former smoker HPI HPI HPI: KATERIN SANDOVAL, is a 80 F who presents to the office today for HPI HPI HPI: KATERIN SANDOVAL, is a 80 F who presents to the office today for Follow-up after EGD yesterday. The patient had an EGD yesterday which showed a stenosis in the very proximal esophagus. I was unable to dilate this. The patient tried to go home and eat and drink and was unable to. She has had a 20 pound weight loss and is very worried about her nutritional status. ROS General General: Yes weight change, fatigue and breast cancer; no appetite, colon cancer or weakness HEENT HEENT: Yes difficulty swallowing; no eye injury, eye surgery, swollen glands or hoarseness Endo Endocrine: No thyroid disease, diabetes mellitus, thyroid cancer, Hair loss, heat intolerance or cold intolerance Musc Musculoskeletal: Yes arthritis; no back problems, rheumatoid arthritis, gout or joint pain Cardio Cardiovascular: Yes atrial fibrillation and high blood pressure; no murmur, pacemaker, heart disease, heart attack, heart stent, palpitations, shortness of breat with exertion or chest pain Psych Psychiatric: Yes depression and anxiety; no hearing voices Resp Respiratory: No shortness of breath, No sleep apnea, No cough, No COPD, No asthma, No emphysema, No wheezing Gastro Gastrointestinal: No abdominal pain, Yes nausea or vomiting, Yes diarrhea, No constipation, No blood in stool, Yes acid reflux, No hemorrhoids, No ulcers, No gallbladder problem, No black,tarry stools Additional Details: Regurgitation and vomiting of food Robson Hematologic: No blood thinners, No blood disorders, No bleeding, No anemia, No blood clots Neuro Neurologic: No weakness Exam Const General: cooperative Orientation: alert, oriented x3 Resp Effort & Inspection: normal respiratory effort Auscultation: clear to auscultation bilaterally Cardio Rate: regular rate Rhythm: regular rhythm Heart Sounds: no murmurs GI Inspection: non-distended Palpation: soft, nontender Assessment & Plan Problems 1. Weight loss, unintentional R63.4 2. Dysphagia R13.10 aspirates thin liquids on the MBS Plan The patient is having 20 pounds of weight loss as well as dysphagia. I performed an EGD and I am unable to dilate this lesion as it is very proximal. I discussed this with her and her and her sister are very concerned about her weight loss and inability to eat or drink. I discussed CorPak versus PEG tube placement while she is getting this worked up and treated. The patient has an appointment with a foregut surgeon in 2 weeks. They would like alternative form of treatment until then. I discussed PEG tube placement with her. The patient refused CorPak placement. I explained endoscopy in detail to the patient. I explained the risks including but not limited to stroke or heart attack with anesthesia, perforation of the GI tract, bleeding, infection. I explained that any of these could necessitate further emergency surgery. The patient understands and all questions were answered sufficiently. The patient wishes to proceed with procedure. I discussed the increased risk of bleeding and infection with PEG tube placement. She will continue to hold her Xarelto until after the procedure. She plans on being admitted to a usp after the procedure and her PCP will order tube feeds for her. Fantasma Jolley MD Pager: [facility] [address] [place] [address], [address] [place] [address] Office: Orders Orders: EGD Today R13.10 Coding Level of Care Code Off vis,est,level 3 Diagnoses Weight loss, unintentional R63.4 Dysphagia R13.10 ??Dysphagia type: unspecified I have re-examined the patient. There are no clinical changes since date of exam.
[2020-10-29] MEDS: Lactated Ringers 1,000 ML 100 ML IV (13:15)
--- NOTE | 2020-10-29 14:38 | OP.CCLET_ITS ---
10/29/2020 Chris Mendes Re : Upper GI endoscopy procedure for Dolores Wright Lilir Vaughn This procedure was performed on Thursday, October 29, 2020. My impressions and recommendations are as follows: Impressions : - Normal esophagus. - Normal stomach. - Normal examined duodenum. - An externally removable PEG placement was successfully completed. - No specimens collected. Recommendations : - Discharge patient to home. - NPO. - Continue present medications. - Resume Xarelto (rivaroxaban) at prior dose tomorrow. - Please follow the post-PEG recommendations including: Nutrition consult for formula and volume, advance food and medications per primary care provider, external bolster 1 cm from abdominal wall, change dressing once per day, may use PEG tomorrow for feedings, check site for bleeding q 4 hrs and clean site with soap and water daily and dry thoroughly. My findings are described in the full procedure note, which is enclosed. If I can be of further assistance, please feel free to contact me at Doctor phone number(s): , Work: . Sincerely, Fantasma Jolley MD 10/29/2020 2:38:04 PM This report has been signed electronically.
--- NOTE | 2020-10-29 14:38 | OP.EGD_ITS ---
Patient Name: Dolores Wright Procedure Date: 10/29/2020 1:22 PM Date of : 1940 Age: 80 Procedure: Upper GI endoscopy Indications: Dysphagia Providers: Fantasma Jolley MD Medicines: Monitored Anesthesia Care Patient Profile: This is a 80 year old female. Refer to note in patient chart for documentation of history and physical. Complications: No immediate complications. Estimated blood loss: Minimal. Procedure: Pre-Anesthesia Assessment: - Prior to the procedure, a History and Physical was performed, and patient medications and allergies were reviewed. The patient's tolerance of previous anesthesia was also reviewed. The risks and benefits of the procedure and the sedation options and risks were discussed with the patient. All questions were answered, and informed consent was obtained. Prior Anticoagulants: The patient has taken Xarelto (rivaroxaban), last dose was 5 days prior to procedure. After reviewing the risks and benefits, the patient was deemed in satisfactory condition to undergo the procedure. After obtaining informed consent, the endoscope was passed under direct vision. Throughout the procedure, the patient's blood pressure, pulse, and oxygen saturations were monitored continuously. The gastroscope was introduced through the mouth, and advanced to the second part of duodenum. The upper GI endoscopy was accomplished without difficulty. The patient tolerated the procedure well. Scope In: 2:21:08 PM Scope Out: 2:27:59 PM Total Procedure Duration Time 0 hours 6 minutes 51 seconds Findings: The patient was placed in the supine position for PEG placement. The stomach was insufflated to appose gastric and abdominal lopez. A site was located in the body of the stomach with excellent transillumination and manual external pressure for placement. The abdominal wall was marked and prepped in a sterile manner. The area was anesthetized with 3 mL of 0.5% lidocaine. The trocar needle was introduced through the abdominal wall and into the stomach under direct endoscopic view. A snare was introduced through the endoscope and opened in the gastric lumen. The guide wire was passed through the trocar and into the open snare. The snare was closed around the guide wire. The endoscope and snare were removed, pulling the wire out through the mouth. A skin incision was made at the site of needle insertion. The externally removable 20 Fr FIONA gastrostomy tube was lubricated. The G-tube was tied to the guide wire and pulled through the mouth and into the stomach. The trocar needle was removed, and the gastrostomy tube was pulled out from the stomach through the skin. The external bumper was attached to the gastrostomy tube, and the tube was cut to remove the guide wire. The final position of the gastrostomy tube was confirmed by relook endoscopy, and skin marking noted to be 4 cm at the external bumper. The final tension and compression of the abdominal wall by the PEG tube and external bumper were checked and revealed that the bumper was loose and lightly touching the skin and that the PEG balloon was loose and lightly touching the stomach. The feeding tube was capped, and the tube site cleaned and dressed. The esophagus was normal. The stomach was normal. The examined duodenum was normal. Impression: - Normal esophagus. - Normal stomach. - Normal examined duodenum. - An externally removable PEG placement was successfully completed. - No specimens collected. Recommendation: - Discharge patient to home. - NPO. - Continue present medications. - Resume Xarelto (rivaroxaban) at prior dose tomorrow. - Please follow the post-PEG recommendations including: Nutrition consult for formula and volume, advance food and medications per primary care provider, external bolster 1 cm from abdominal wall, change dressing once per day, may use PEG tomorrow for feedings, check site for bleeding q 4 hrs and clean site with soap and water daily and dry thoroughly. Procedure Code(s): --- Professional --- 39649, Esophagogastroduodenoscopy, flexible, transoral; with directed placement of percutaneous gastrostomy tube Diagnosis Code(s): --- Professional --- R13.10, Dysphagia, unspecified CPT copyright 2017 [employer]. All rights reserved. The codes documented in this report are preliminary and upon char filter tank tender head review may be revised to meet current compliance requirements. Fantasma Jolley MD 10/29/2020 2:38:04 PM This report has been signed electronically. Number of Addenda: 0 Note Initiated On: 10/29/2020 1:22 PM
== END 2020-10-29 16:35 | disposition home or self-care (01) ==
LOC: EN 12:56 → AC 12:59
PROVIDERS: PCP Family Medicine; Referring Provider Surgery; Visit Provider Surgery
PROC: 0DJ08ZZ Inspection of Upper Intestinal Tract, Via Natural or Artificial Opening Endoscopic (ICD-10-PCS; CPT 43235; principal; 2020-10-29 14:10)
DX: R13.10 Dysphagia, unspecified (principal); R63.4 Abnormal weight loss; I10 Essential (primary) hypertension; I48.0 Paroxysmal atrial fibrillation; K21.9 Gastro-esophageal reflux disease without esophagitis; G20 Parkinson's disease; F02.80 Dementia in other diseases classified elsewhere, unspecified severity, without behavioral disturbance, psychotic disturbance, mood disturbance, and anxiety; Z87.891 Personal history of nicotine dependence
CPT/HCPCS: 43246; J7120

== ENCOUNTER → 2020-11-10 12:57 | Outpatient (CLI) | payer MEDICARE, OTHER, SELFPAY ==
[2020-10-29 13:30] VITALS: BMI 25.6
--- NOTE | 2020-11-10 13:02 | CT_ITS ---
STUDY: CT ABDOMEN AND PELVIS WITH CONTRAST REASON FOR EXAM: Female, 80 years old. EPIGASTRIC ABD PAIN RADIATION DOSAGE (If Supplied By Facility): CTDIvol = ( 16.51 ) mGy, DLP = ( 995.15 ) mGycm TECHNIQUE: Transaxial images were obtained from the dome of the diaphragm to the symphysis pubis with oral contrast. Oral and amp; IV Gastrografin and amp; 100mL Isovue-300 was administered. Sagittal and coronal images were reconstructed. Individualized dose optimization techniques were used for this CT. COMPARISON: Comparison is made with prior study dated 04/30/2016. FINDINGS: The visualized lung bases are unremarkable. Coronary artery calcification. Calcification of the mitral valve annulus. Normal liver. There are multiple small gallstones. Normal spleen. Normal pancreas. Normal bilateral adrenal glands. There is mild cortical atrophy of the right kidney, consistent with chronic medical renal disease. There is a 2.5 cm x 1.6 cm cyst in the mid anterior aspect of the right kidney. There is mild cortical atrophy of the left kidney, consistent with chronic medical renal disease. Stable focal linear calcification along the anterior aspect of the mid portion of the left kidney. There is a moderate-sized hiatal hernia. Normal small intestine. There are multiple colonic diverticula consistent with diverticulosis. There is non-visualization of the appendix. There is diffuse atherosclerotic calcification of the abdominal aorta and its major visceral branches, without a demonstrated aneurysm. Normal inferior vena cava. Normal retroperitoneum. Normal urinary bladder. There is absence of the uterus consistent with a prior hysterectomy. Normal abdominal wall. Status post loss of height and prior vertebroplasty of the L1 and L2 levels. Prior ORIF of the right intertrochanteric fracture. CT/Abdomen/Pelvis WITH Contrast IMPRESSION: Multiple small gallstones. Stable bilateral renal atrophy. Sigmoid diverticulosis. Moderate sized hiatal hernia. Electronically Signed: Raul Dailey MD at 13:51 EDT , Service support ,
== END ==
PROVIDERS: PCP Family Medicine; Referring Provider Family Medicine; Visit Provider Family Medicine
DX: R10.13 Epigastric pain (principal); R63.4 Abnormal weight loss
CPT/HCPCS: 74177; Q9967

== ENCOUNTER → 2020-12-23 05:00 | Outpatient (REF) | payer MEDICARE, OTHER, SELFPAY ==
[2020-12-20 14:47] VITALS: BMI 27.4
[2020-12-23 07:50] LABS: Anion Gap 4 (5-15); BUN 24 mg/dL (7-18); Calcium,Total 9.1 mg/dL (8.5-10.1); Chloride 105 mmol/L (98-107); Creatinine, Serum 0.86 mg/dL (0.55-1.02); EST Glomerular Filtration Rate 68 mL/min (>60); Est Glom Filt Rate - Afr Amer 82 mL/min (>60); Glucose 84 mg/dL (74-106); Potassium 3.9 mmol/L (3.5-5.1); Sodium Level 138 mmol/L (136-145)
== END ==
LOC: OLS.ACH 05:00
PROVIDERS: PCP Family Medicine; Visit Provider Family Medicine
DX: R13.10 Dysphagia, unspecified (principal)
CPT/HCPCS: 36415; 80048

== ENCOUNTER → 2021-08-10 12:33 | Outpatient (CLI) | payer MEDICARE, OTHER, SELFPAY | PROVIDERS: PCP Internal Medicine; Referring Provider Nurse Practitioner Women's Health; Visit Provider Nurse Practitioner Women's Health | DX: N76.0 Acute vaginitis (principal) | CPT/HCPCS: 87070; 87205 ==

== ENCOUNTER → 2022-04-19 | Outpatient (CLI) | payer MEDICARE, OTHER, SELFPAY | END | disposition home or self-care (01) | PROVIDERS: PCP Internal Medicine; Referring Provider Obstetrics & Gynecology; Visit Provider Obstetrics & Gynecology | DX: N89.8 Other specified noninflammatory disorders of vagina (principal) | CPT/HCPCS: 87070; 87205 ==

== ENCOUNTER 2022-07-24 14:00 | Outpatient (RCR) | payer MEDICARE, OTHER, SELFPAY ==
--- NOTE | 2022-06-14 13:41 | HP.PTEVAL_ITS ---
Patient's Visit Information KATERIN SANDOVAL is a 82 year old F referred to Physical Therapy by Dr. Bev Chowdary DO with a diagnosis of R HIP PAIN, DEBILITY AND GENERALIZED WEAKNESS. Date of Evaluation: 06/14/22 Physical Therapist: Joanne Rick, PT, Cert MDT - Visit Plan Frequency: 2-3x /Week Duration: 4-6 Weeks Plan: GENTLE GENERAL RAÚL UE AND LE ROM AND STRENGTHENING IN PAINFREE ROM IN W/C 2X'S A WK X 2 WKS (NON WEIGHTBEARING ONLY) UNTIL CONSULT WITH DR. SINGH THEN RE- ASSESSMENT. WILL PROGRESS TO GAIT, BALANCE AND TRANSFER ACTIVITIES AFTER CONSULT WITH DR. SINGH AND PT RE-ASSESSEMENT APPROPRIATE AND AGREEABLE WITH PATIENT. - Subjective Present symptoms: I CAN'T STAND AND I CAN'T WALK. I BROKE MY HIP AND IT NEVER GOT BETTER. RIGHT HIP AND GROIN PAIN. Present since: OCTOBER 2018 - FELL AND BROKE HIP IN [place] IN HER BEDROOM. Pain Scale: WORST 8/10, LEAST 6/10. Currently: 8/10. Is it getting better, worse or staying the same: STAYING THE SAME. Commenced as a result of: FALL. Worse: SITTING IN HER WHEELCHAIR, TRANSFERRING INTO AND OUT OF BED. Better: T[place]. Disturbed sleep: YES. Previous history/Previous treatment: R HIP SX IN [place] 2019 THE DAY SHE FELL BUT ISN'T SURE WHAT THEY DID IN SURGERY. PT IN THE HOSPITAL AND PT AT HOME AFTER SURGERY. AFTER PHYSICAL THERAPY WAS ABLE TO WALK WITH A ROLLATOR. SHE REPORTS SHE STAYED ON THE ROLLATOR UNTIL 6 MONTHS AGO (NOVEMBER 2021) - SHE REPORTS SHE FEL L OFF THE COUCH. SHE REPORTS SOMEONE PICKED HER UP, PUT HER IN THE W/C AND SHE HAS BEEN IN THE W/C EVER SINCE. HAS NOT BEEN ABLE TO STAND OR WALK SINCE NOVEMBER 2021. SHE REPORTS HER ABOUT A WEEK AFTER SHE GOT IN THE W/C (DECEMBER 02 2021). LIVES ALONE. HAS A PRIVATE HELPER JOAN THAT HELPS HER IN THE SHOWER. STATES THAT JOAN TAKES HER HAND, SHE GETS OUT OF THE W/C, STEPS INTO THE SHOWER AND SITS IN THE SHOWER AND WASHES HERSELF THEN TAKES JOAN'S HAND TO HELP HER BACK TO W/C. SHE REPORTS JOAN COMES 2 DAYS A WK FOR A FEW HOURS AND TAKES HER TO THE GROCERY STORE AND DR. FERNANDEZ. SHE BROUGHT HER HERE TODAY. ALSO GOING TO GRIEF COUNSELING AT HOSPICE. 2 STEPS COMING OUT OF HOUSE THAT PATIENT DOES ALONE WITH 2 HANDRAILS THEN CANE TO CARE WITH JOAN STANDING BY. STATES SHE DOES HER OWN LAUNDRY AND HOUSE KEEPING FROM THE WHEELCHAIR. Treatment this episode: CONSULT WITH DR. JEFFRIES SEP 2020 AT [facility] AND STATES SHE WAS TOLD TO GET HER HIP REPLACED OR LIVE WITH THE PAIN. STATES [facility] SENT [facility] TO [facility] FOR X-RAYS AND SHE HAD THEM DONE BUT DID NOT GET THE RESULTS. STATES THAT SHE NEVER FOLLOWED BACK UP WITH DR. JEFFRIES. SHE REPORTS SHE REFUSED THE HIP REPLACEMENT BECAUSE THERE WAS NO ONE TO TAKE CARE OF HER. SHE REFUSES TO GO TO A GROUP HOME. ALSO WENT TO A SURVEYOR INSTRUMENT ASSISTANT AND HE PRESCRIBED R EXTERNAL SHOE LIFT WHICH SHE FEELS HAS HELPED HER WALKING A LITTLE BIT (WALKING TO CAR). REFERRED TO DR. SINGH BY DR. CHOWDARY WITH [facility] PENDING JUL 04 2022. PATIENT DENIES HAVING ANY PHYSICAL THERAPY OR OTHER CONSULTS IN THE LAST 6 MONTHS. SHE REPORTS SHE WENT TO DR. CHOWDARY FOR A BLADDER INFECTION. Gait: PATIENT ORIGINALLY REPORTED NOT BEING ABLE TO STAND OR WALK BUT DOES DO A LITTLE BIT - SEE ABOVE. Bowel or Bladder Dysfunction: REPORTS HER BLADDER IN FECTION IS CLEARED UP NOW. PATIENT DENIES BOWEL OR BLADDER INCONTINENCE OTHER THAN SOME LEAKING OF URINE. Unexplained weight loss: NO. Imaging: NONE RECENT. PMH/Recent major surgery: RLS. *OSTEOPOROSIS*. SEE BELOW. PLOF: PATIENT REPORTS THAT PRIOR TO FALLING IN 2018 SHE WAS OK. - Objective THIS PATIENT WAS FOUND IN PT LOBBY IN W/C AND BROUGHT BACK TO A TREATMENT ROOM BY THIS PT IN HER W/C. RAÚL LE AND LE LIGHT TOUCH SENSATION IS GROSSLY INTACT AND SYMMETRICAL. POOR SITTING POSTURE AND ONLY ABLE TO PARTIALLY CORRECT. POOR CORE STRENGTH. LE STRENGTH: MMT LLE: HIP 4/5, KNEE 5/5, ANKLE 5/5. RLE: HIP 3-/5, KNEE 4-/5, ANKLE 5/5. RAÚL UE STRENGTH GROSSLY 4-5/5. ROM: RAÚL UE ROM WFL. TIGHT RAÚL LE HIP FLEXORS. RAÚL KNEE AND ANKLE ROM WFL. DECREASED TRUNK EXTENSION. TRANSFERS: PATIENT DEMO'S THE ABILITY TO INDEP'LY TRANSFER FROM SIT TO STAND (WITH PT SUPERVISION) WITH RAÚL UE ASSIST ON W/C ARMS. STATIC BALANCE IS FAIR. WITH LIGHT ONE UE ASSIST ON TABLE IN TREATMENT ROOM SHE DEMO'S ABILITY TO TAKE 2 STEPS AWAY FROM W/C AND TWO STEPS BACK THEN LOWER HERSELF GENTLY BACK INTO W/C. GAIT AND TRANSFERS WITH SUPERVISION ONLY. PATIENT DID NOT HESITATE TO DEMONSTRATE FOR ME HOW SHE GETS UP OUT OF THE W/C AT HOME TO GET IN BED, GET TO SHOWER AND GO TO STEPS TO GET OUT OF HOUSE. SHE DENIED INCREASED PAIN WITH ALL TESTING TODAY EXCEPT TEMPORARY INCRASED PAIN WITH GENTLE R HIP MMT'ING. PATIENT DENIED INCREASED PAIN UPON DEPARTURE. PATIENT AND THIS PT AGREED TO PROCEED WITH PT WITH CHAIR EX'S AND HEP INSTRUCTION UNTIL SHE HAS CONSULT WITH DR. SINGH. INSTRUCTED PATIENT IN HER HIGH RISK OF FALLING DUE TO RIGHT HIP PAIN AND WEAKNESS AND SHE COMMUNICATES A GOOD UNDERSTANDING STATING SHE HAS REFUSED THR AND GROUP HOME CARE. - Balance/Special Test Scores Lower Extremity Functional Score: 24 - Goals Goal 1:: PATIENT WILL AMBULATE 25 FEET WITH WW WITH SUPERVISION X 1 TO IMPROVE ACTIVITY TOLERANCE Goal Time Frame: 6-8 Weeks Goal 2:: PATIENT WILL COMPLETE 6 STANDS IN 30 SECS TO DEMONSTRATE IMPROVED FUNCTIONAL STRENGTH Goal Time Frame: 6-8 Weeks Goal 3:: PATIENT WILL COMPLETE TUG WITH WW IN < 20 SECS TO DEMONSTRATE IMPROVED GAIT STABILITY Goal Time Frame: 8-12 Weeks Goal 4:: PT WILL COMPLETE DAILY THER EX AAROM-AROM TO INC SAFETY AND INDEP W/TRANSFERS AND FACILITY GAIT. Goal Time Frame: 8-12 Weeks - Anticipated Interventions Patient/Client Instruction: Educate patient on: Condition, Plan of Care, Risk Factors For the Purpose of:: To improve self management Therapeutic Exercise to Include: Strength training, Endurance training, Balance training, Body mechanics, Postural training, Flexibilty training, Gait and locomotor training, Neuromotor development, Dynamic Lumbar Stabilization, Scapular Strength/Stabilization For the Purpose of:: To decrease pain, To increase ROM, To improve muscle performance and motor function, To improve ability to perform ADL's, To increase tolerance to activity/condition/position, To decrease level of supervision to perform tasks, To improve ability of physical actions for home/community/work/leisure, To improve gait and locomotor functions, To improve balance Thank you for the opportunity to evaluate your patient. For Medicare and Medicare HMO plans, please review the plan of care and approve it. It will need to be FAXED BACK to us at [phone] for Medicare purposes. For Medicare only, by signing this I certify the plan of care. Please let me know if there are questions or concerns regarding this plan of care. Physician Signature: Date:
--- NOTE | 2022-07-21 13:27 | HP.PTREVAL_ITS ---
Dr. Juan Francisco Singh, DO, It has been my pleasure to treat KATERIN SANDOVAL over the last 6 visits for R HIP PAIN, DEBILITY AND GENERALIZED WEAKNESS. Please see the progress note below for an update on the physical therapy plan of care! Subjective: PATIENT REPORTS HAVING FOLLOW UP WITH DR. SINGH - SEE NEW PT ORDER SCANNED IN TO [facility] EMR. SHE REPORTS HE KEPT HER SHOE LIFT HEIGHT THE SAME AND TOLD HER TO PRACTICE STANDING AND WALKING ON THE WALKER AT HOME. SHE REPORTS SHE HAS NOT DONE THIS BECAUSE SHE IS SCARED. SHE REPORTS HE TOLD HER SHE IS PROLONGING THE inevitable OF NEEDING A HIP REPLACEMENT AND ORDERED PT WBAT. SHE REPORTS HE AGREED FOR HER TO TRY PT FOR 6 MORE WEEKS AND IF IT DOESN'T WORK THEN SHE HAS TO HAVE A THR. PATIENT REFUSING THR AT THIS TIME DUE TO LIVING ALONE AND NOT WANTING TO GO TO A LONG TERM. PATIENT DENIES ANY CHANGES IN HER MEDICAL HISTORY OR FUNCTION SINCE LAST PT VISIT. PATIENT REPORTS SHE LIKED THE PT SHE WAS DOING WITH US AND SHE IS NOW WILLING TO TRY STANDING AND WALKING WITH US. PATIENT REPORTS SHE STILL HAS AN ABCESS IN HER MOUTH AND THEY ARE WORKING ON HER IMPLANT BECAUSE SHE CAN'T EAT - LIQUID DIET. PATIENT REPORTS SHE IS STILL HAVING DIZZINESS AND DR. CHOWDARY AND DR. SINGH ARE AWARE. PATIENT REPORTS SHE HAS NOT CONTINUED ANY HOME EX'S. NO FALLS SINCE LAST VISIT. Objective/Function: THIS PATIENT WAS SEEN TODAY FOR RE-ASSESSEMENT OF CURRENT CONDITION DUE TO DELAY IN CARE X 3 WEEKS. THIS PATIENT WAS FOUND IN PT LOBBY IN W/C AND BROUGHT BACK TO A TREATMENT ROOM BY THIS PT IN HER W/C. RAÚL LE LIGHT TOUCH SENSATION IS GROSSLY INTACT AND SYMMETRICAL. POOR SITTING POSTURE AND ONLY ABLE TO PARTIALLY CORRECT. POOR CORE STRENGTH. LE STRENGTH: MMT LLE: HIP 4/5, KNEE 4-/5, ANKLE 5/5. RLE: HIP 4-/5, KNEE 4/5, ANKLE 5/5. RAÚL UE STRENGTH GROSSLY 4-5/5. ROM: RAÚL UE ROM WFL. TIGHT RAÚL LE HIP FLEXORS. RAÚL KNEE AND ANKLE ROM WFL. DECREASED TRUNK EXTENSION. TRANSFERS: PATIENT DEMO'S THE ABILITY TO INDEP'LY TRANSFER FROM SIT TO STAND (WITH PT SUPERVISION) WITH RAÚL UE ASSIST ON W/C ARMS. STATIC BALANCE IS FAIR. SHE DENIED INCREASED PAIN WITH ALL TESTING AND TREATMENT TODAY. INSTRUCTED PATIENT IN HER HIGH RISK OF FALLING DUE TO RIGHT HIP PAIN AND WEAKNESS AND SHE COMMUNICATES A GOOD UNDERSTANDING STATING SHE HAS CONTINUED TO REFUSE THR AND LONG TERM CARE. Plan Plan: 3X'S A WK X 4-6 WKS. PATIENT AND CAREGIVER HEP INSTRUCTION. FIT ROLLATOR. RESUME AND PROGRESS TO STANDING AND WALKING WBAT. GENTLE GENERAL RAÚL UE AND LE ROM AND STRENGTHENING. GAIT, BALANCE AND TRANSFER TRAINING. POC AGREEABLE WITH PATIENT. Balance/Gait/Functional tests - Balance/Special Test Scores Lower Extremity Functional Score: 26 Goals Goal 1:: PATIENT WILL AMBULATE 25 FEET WITH WW WITH SUPERVISION X 1 TO IMPROVE ACTIVITY TOLERANCE Goal Time Frame: 6-8 Weeks Goal 2:: PATIENT WILL COMPLETE 6 STANDS IN 30 SECS TO DEMONSTRATE IMPROVED FUNCTIONAL STRENGTH Goal Time Frame: 6-8 Weeks Goal 3:: PATIENT WILL COMPLETE TUG WITH WW IN < 20 SECS TO DEMONSTRATE IMPROVED GAIT STABILITY Goal Time Frame: 8-12 Weeks Goal 4:: PT WILL COMPLETE DAILY THER EX AAROM-AROM TO INC SAFETY AND INDEP W/TRANSFERS AND FACILITY GAIT. Goal Time Frame: 8-12 Weeks Anticipated Interventions Patient/Client Instruction: Educate patient on: Condition, Plan of Care, Risk Factors For the Purpose of:: To improve self management Therapeutic Exercise to Include: Strength training, Endurance training, Balance training, Body mechanics, Postural training, Flexibilty training, Gait and locomotor training, Neuromotor development, Dynamic Lumbar Stabilization, Scapular Strength/Stabilization For the Purpose of:: To decrease pain, To increase ROM, To improve muscle perfo rmance and motor function, To improve ability to perform ADL's, To increase tolerance to activity/condition/position, To decrease level of supervision to perform tasks, To improve ability of physical actions for home/community/work/leisure, To improve gait and locomotor functions, To improve balance Please do not hesitate to contact me at [phone] by phone or if you have questions or concerns regarding this new plan of care! Sincerely, Joanne Rick, PT, Cert MDT
--- NOTE | 2022-08-07 10:22 | HP.PT.NRP ---
KATERIN SANDOVAL was seen in my office for initial evaluation on 06/14/22. The following Plan of Care was established for this patient: Initial Frequency: 2-3x /Week Initial Duration: 4-6 Weeks Patient/Client Instruction: Educate patient on: Condition, Plan of Care, Risk Factors For the Purpose of:: To improve self management Therapeutic Exercise to Include: Strength training, Endurance training, Balance training, Body mechanics, Postural training, Flexibilty training, Gait and locomotor training, Neuromotor development, Dynamic Lumbar Stabilization, Scapular Strength/Stabilization For the Purpose of:: To decrease pain, To increase ROM, To improve muscle performance and motor function, To improve ability to perform ADL's, To increase tolerance to activity/condition/position, To decrease level of supervision to perform tasks, To improve ability of physical actions for home/community/work/leisure, To improve gait and locomotor functions, To improve balance This patient was last seen in our office 07/24/22. Pertinent comments regarding their Physical therapy will appear below: 08/07/22 THIS PT RECEIVED A MESSAGE STATING PATIENT CALLED AND LM TO CX LAST 4 MACI'TS. GOING TO SEE A SURGEON Aug. At this point I will be discontinuing this patient from physical therapy. I would be happy to see this patient again in the future if found appropriate by the physician. Thank you! Joanne Rick, PT, Cert MDT Balance/Gait/Functional tests - Balance/Special Test Scores Lower Extremity Functional Score: 26 TUG Test Time Seconds: 23.26 Tug Test: 20-30sec.=variable mobility 30 Second Chair Rise Test Seconds: 4
== END 2022-07-24 19:00 | disposition home or self-care (01) ==
LOC: PT 14:00
PROVIDERS: PCP Internal Medicine; Referring Provider Internal Medicine; Visit Provider Orthopaedic Surgery
DX: M62.561 Muscle wasting and atrophy, not elsewhere classified, right lower leg; S72.141S Displaced intertrochanteric fracture of right femur, sequela; M62.562 Muscle wasting and atrophy, not elsewhere classified, left lower leg; R53.81 Other malaise; R53.1 Weakness
CPT/HCPCS: 97110; 97162; 97164; 97530

== ENCOUNTER → 2022-08-31 | Outpatient (CLI) | payer MEDICARE, OTHER, SELFPAY ==
--- NOTE | 2022-08-31 10:00 | US_ITS ---
STUDY: ABDOMINAL ULTRASOUND - RIGHT UPPER QUADRANT REASON FOR VISIT: Female, 82 years old RUQ pain TECHNIQUE: Ultrasound evaluation of the right upper quadrant was performed with real-time and static gasca-scale imaging. TECHNICAL QUALITY: Adequate. COMPARISON: None. FINDINGS: Liver: The liver measures 12.2 cm. There is normal echogenicity of the liver. The bile ducts are within normal limits. There is hepatic color flow. The direction of portal flow is hepatopetal. There is no demonstrated mass lesion. Gallbladder: Normal distended gallbladder. The gallbladder wall measures 3.3 mm. There is a positive sonographic Andrade''s sign. There is no pericholecystic fluid. There are multiple echogenic structures within the gallbladder, consistent with multiple gallstones. Common Bile Duct (C.B.D.): The common bile duct measures mm. Pancreas: Normal size of the head, body of the pancreas. The tail portion is obscured due to overlying bowel gas. There is normal echogenicity of the pancreas. There is no demonstrated pancreatic mass or cyst. Right Kidney: Normal size of the right kidney. The right kidney measures 7.4 cm x 4.4 cm x 4.4 cm. Normal renal cortex. The right cortex measures 0.9 cm. There is a 2.5 cm x 1.9 cm x 1.9 cm renal cysts. There is no right hydronephrosis. US/Abdomen Limited IMPRESSION: Multiple gallstones. Positive Andrade''s sign. Electronically Signed: Raul Dailey MD at 12:54 EST ,
== END | disposition home or self-care (01) ==
LOC: US 09:59
PROVIDERS: PCP Internal Medicine; Referring Provider Internal Medicine; Visit Provider Internal Medicine
DX: R10.11 Right upper quadrant pain (principal)
CPT/HCPCS: 76705

== ENCOUNTER → 2022-09-11 | Outpatient (CLI) | payer MEDICARE, OTHER, SELFPAY ==
--- NOTE | 2022-09-11 09:28 | NM_ITS ---
CLINICAL: 82-year-old female with history of painful right knee arthroplasty, operated > 2 years prior to the current presentation. WHOLE BODY 99m Tc MDP RADIONUCLIDE BONE SCINTIGRAPHY COMPARISON: None available FINDINGS: Following the intravenous administration of 26.0 mCi of 99m Tc MDP, whole body bone images reveal: 1. Increased radiopharmaceutical concentration is defined in the acetabular and greater trochanteric aspects of the right hip prosthesis. 2. Facilitated uptake is noted in the patellofemoral compartments of both knees, the glenohumeral compartment of the right shoulder, sternoclavicular compartment of the left shoulder, the visualized right elbow and wrist, the knee articulations bilaterally, the eighth thoracic, fifth lumbar vertebra. 3. There is subtle increased uptake noted in the left posterior 11th rib. 4. The remaining skeletal structures are scintigraphically unremarkable with normal-appearing renal images and urinary bladder activity identified. Increased uptake is noted in the left zygoma most consistent with periostitis. NM/Bone Scan Whole Body IMPRESSION: 1. The increase in uptake defined in the acetabular and greater trochanteric aspects of the right hip arthroplasty are most consistent with loosening. A component of trauma-fracture is also a diagnostic consideration. Infection is contemplated, correlation with labeled leukocyte imaging is recommended. 2. 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 3. Facilitated uptake noted in the left posterior 11th rib likely represents previous trauma-fracture. Electronically Signed: Joshua Bautista, at 22:43 EST ,
== END | disposition home or self-care (01) ==
LOC: NM 09:27
PROVIDERS: PCP Internal Medicine; Visit Provider Orthopaedic Surgery
DX: M62.561 Muscle wasting and atrophy, not elsewhere classified, right lower leg (principal); S72.141S Displaced intertrochanteric fracture of right femur, sequela
CPT/HCPCS: 78306; A9503

== ENCOUNTER 2022-10-16 10:30 | Outpatient (RCR) | payer MEDICARE, OTHER, SELFPAY ==
--- NOTE | 2022-09-19 15:48 | HP.PTEVAL_ITS ---
Patient's Visit Information KATERIN SANDOVAL is a 82 year old F referred to Physical Therapy by Dr. Juan Francisco Davenport DO with a diagnosis of R femur fracture 2019, muscle wasting. Date of Evaluation: 09/19/22 Physical Therapist: Rigo Millan, DPT, OCS, CSCS - Visit Plan Frequency: 2x /Week Duration: 4-6 Weeks Plan: 2x/week for 4-6 weeks ...please teach... 1. seated and standing HEP for LE and trunk and balance as safety allows with pics. stretch HS, psoas and du ds. 2. Gait training with wh walker and balance training dynamically. Has rollator at home and we want to work to the point where she can use it safely as she is reliant on WC right now. - Subjective R hip hurts for long time and is terrible. Had surgery for fractured hip in 2019 in [facility] and did not go well. Pain ever since, but worse lately and is now seeing Ethel. Ordered two tylenol and PT. Had therapy over a month ago and could not tolerate it but doctor wants her to. Uses WC to get around for a couple years. Can stand and pivot and has helper. showers with her help. Lives alone in [facility] on one floor. Basic ADLs OK, Does not eat well due to abscess in mouth that will have surgery next week. Has gall bladder appointment October 24 due to pain in R abdomen, Rory sent to [place] for that. Sleep is not great as she is up all night due pain in R groin 0-9/10. in November. [place] brings her to appointments. Spends day doing nothing , reads books. Sits in chair or lies in bed. No regular exercises., im lazy. Had a counselor but may go to [facility] mental health. Dr. Guidry told her to get her hip replaced or live with the pain. - Pain R groin Pain Intensity (Out of 10): 0 Pain Intensity Range: 0, 9 Comment: comfortable at rest. - Objective Lift R shoe for shorter femur and has lift on R shoe. Pushed back to eval room in a WC holding her self up trunk tai,says she has not walked in 3-4 yrs. Abhishek d from chair with UE I, Needs to hold on stand, but can stand romberg when encouraged with increased sway and SBA. Walks with wh walker 40 feet today with SBA with good step length and poor confidence. Walks without AD 3 steps today and short and hesitant. bed and chair trasnfers I with UE. quads and psoas mod tight B, HS mod tight. AROM B hip WFL but extension R limited to neutral. Knee AROM 0-120 B. Ankell aROM WFL, tightness in gastroc B. Sensation WNL to gross light touch i8n LE. reflexes 1/3 patella and achilles. Coordination to reciprocal toe tap slight deficits. Pt has hunched over posture and tends to hold self up with UE in sitting until cued. Can sit on table I. Pt comes to tears multiple times today talking about all of her ailments and her hip and the loss of her . Emotionally and mentally effected by her situation which hurts her confidence as she thinks she is a mwess. - Balance/Special Test Scores Lower Extremity Functional Score: 0 - Goals Goal 1:: I home stand and seated ex program to help with pain and mobility Goal Time Frame: 4-6 Weeks Goal 2:: Stand and walk and use wh walker at home mod I Goal Time Frame: 4-6 Weeks Goal 3:: Pt feel 75% better in overall mobility Goal Time Frame: 4-6 Weeks Goal 4:: Hip pain 0-2/10 at worst Goal Time Frame: 4-6 Weeks Goal 5:: LEFS score 45 Goal Time Frame: 4-6 Weeks - Rehabilitation Potential Physical Therapy Diagnosis: weakness form sedentarism, lack mobility Rehabilitation Potential: Fair - Anticipated Interventions Patient/Client Instruction: Educate patient on: Condition, Plan of Care For the Purpose of:: To decrease pain, To improve muscle performance and motor function, To improve ability of physical actions for home/community/work/leisure, To improve gait and locomotor functions Therapeutic Exercise to Include: Strength training, Gait and locomotor training For the Purpose of:: To decrease pain, To improve muscle performance and motor function, To increase tolerance to activity/condition/position, To improve ability of physical actions for home/community/work/leisure Thank you for the opportunity to evaluate your patient. For Medicare and Medicare HMO plans, please review the plan of care and approve it. It will need to be FAXED BACK to us at [phone] for Medicare purposes. For Medicare only, by signing this I certify the plan of care. Please let me know if there are questions or concerns regarding this plan of care. Physician Signature: Date:
--- NOTE | 2022-10-16 11:24 | HP.PTREVAL ---
Dr. Juan Francisco Davenport, DO, It has been my pleasure to treat KATERIN SANDOVAL over the last 8 visits for R femur fracture 2019, muscle wasting. Please see the progress note below for an update on the physical therapy plan of care! Subjective: Getting better. Did steps holding onto rail. I don't walk. I am afraid of falling. Doing exercises at sink at home. [place] sthem alone without assistance. Objective/Function: Walking with wh walker 40 feet easily today, walks without AD 10 feet CGA but scared and hesitant on R LE. Steps reciprocally with rail up and down. SBA. Overall improving but still scared and hesitant, unwilling to commit to more therapy until sees doctor tomorrow. Plan Plan: continue 2x/week for 4 weeks after doctor appointment if patient desires, she will call after appointment to [place]. Work on gait confidence and steps and progress abilitiy for mobility at home which is WC reliant at this time. Questionable prognosis with compliance. Appropriate 4 more weeks. Balance/Gait/Functional tests - Balance/Special Test Scores Lower Extremity Functional Score: 22 Goals Goal 1:: I home stand and seated ex program to help with pain and mobility Goal Time Frame: 4-6 Weeks Goal Progress: Goal Met Goal 2:: Stand and walk and use wh walker at home mod I Goal Time Frame: 4-6 Weeks Goal Progress: Not Progressing Goal 3:: Pt feel 75% better in overall mobility Goal Time Frame: 4-6 Weeks Goal Progress: 25% Goal 4:: Hip pain 0-2/10 at worst Goal Time Frame: 4-6 Weeks Goal Progress: Not Progressing Goal 5:: LEFS score 45 Goal Time Frame: 4-6 Weeks Goal Progress: Progressing Anticipated Interventions Patient/Client Instruction: Educate patient on: Condition, Plan of Care For the Purpose of:: To decrease pain, To improve muscle performance and motor function, To improve ability of physical actions for home/community/work/leisure, To improve gait and locomotor functions Therapeutic Exercise to Include: Strength training, Gait and locomotor training For the Purpose of:: To decrease pain, To improve muscle performance and motor function, To increase tolerance to activity/condition/position, To improve ability of physical actions for home/community/work/leisure Please do not hesitate to contact me at [phone] by phone or if you have questions or concerns regarding this new plan of care! Sincerely, Rigo Millan, DPT, OCS, CSCS
--- NOTE | 2022-10-18 09:23 | HP.PT.NRP ---
KATERIN SANDOVAL was seen in my office for initial evaluation on 09/19/22. The following Plan of Care was established for this patient: Initial Frequency: 2x /Week Initial Duration: 4-6 Weeks Patient/Client Instruction: Educate patient on: Condition, Plan of Care For the Purpose of:: To decrease pain, To improve muscle performance and motor function, To improve ability of physical actions for home/community/work/leisure, To improve gait and locomotor functions Therapeutic Exercise to Include: Strength training, Gait and locomotor training For the Purpose of:: To decrease pain, To improve muscle performance and motor function, To increase tolerance to activity/condition/position, To improve ability of physical actions for home/community/work/leisure This patient was last seen in our office 10/16/22. Pertinent comments regarding their Physical therapy will appear below: Pt seen 9 visits of POC and was walking better and moving better and 20% better however still painful in hip. She visited doctor and she needs a hip replacement and will pursue that vs further therapy. I will discontinue her from therapy at this time at her request. At this point I will be discontinuing this patient from physical therapy. I would be happy to see this patient again in the future if found appropriate by the physician. Thank you! Rigo Millan, DPT, OCS, CSCS Balance/Gait/Functional tests - Balance/Special Test Scores Lower Extremity Functional Score: 22
== END 2022-10-16 19:00 | disposition home or self-care (01) ==
LOC: PT 10:30
PROVIDERS: PCP Internal Medicine; Referring Provider Orthopaedic Surgery; Visit Provider Orthopaedic Surgery
DX: M62.561 Muscle wasting and atrophy, not elsewhere classified, right lower leg (principal); S72.141S Displaced intertrochanteric fracture of right femur, sequela
CPT/HCPCS: 97110; 97162; 97530

== ENCOUNTER 2022-12-14 09:39 | Observation (INO) | payer MEDICARE, OTHER, SELFPAY ==
[2022-12-14] VITALS (11 sets, daily range): BP systolic 101–139; BP diastolic 62–87; PULSE 72–81; RESP 12–20; TEMP 36.1–36.7; O2SAT 88–98; BMI 32.9; BMI 31.2
--- NOTE | 2022-12-14 10:05 | EKG12_ITS ---
Test Reason : CP Blood Pressure : / mmHG Vent. Rate : 080 BPM Atrial Rate : 080 BPM P-R Int : 272 ms QRS Dur : 100 ms QT Int : 386 ms P-R-T Axes : 102 044 014 degrees QTc Int : 445 ms Sinus rhythm with 1st degree A-V block RSR' or QR pattern in V1 suggests right ventricular conduction delay Minimal voltage criteria for LVH, may be normal variant ( [place] product ) Borderline ECG Confirmed by BETO HERNANDEZ, YAA ([id number]), purchase request editor LAY MILLER ([id number]) on 12/18/2022 11:40:24 AM Referred By: Confirmed By:CHAPARRO PÉREZ MD
--- NOTE | 2022-12-14 10:21 | CT_ITS ---
STUDY: CTA CHEST REASON FOR EXAM: Female, 82 years old. dissection Chest pain, shortness of breath, hypertension, history of bilateral mastectomy. RADIATION DOSAGE (If Supplied By Facility): CTDIvol = ( 14.26 ) mGy, DLP = ( 1040.64 ) mGycm TECHNIQUE: The examination was performed with the intravenous administration of IV 100mL Isovue-370. Post-processing of the angiographic images was performed, with multiplanar reformation and 3D reconstruction. Individualized dose optimization techniques were used for this CT. COMPARISON: Chest x-ray dated October 20, 2020 FINDINGS: Normal enhancement of the main pulmonary artery and right and left pulmonary arteries. Normal enhancement of the bilateral peripheral pulmonary arteries. There is no demonstrated pulmonary embolism. There is atherosclerotic calcification of the aortic arch with tortuosity. There is no demonstrated aortic dissection. Significant mitral valve calcifications are present. Left chest cardiac loop device noted. Normal heart and pericardium. A single tiny focus of calcium is seen in the left anterior descending coronary artery. Normal mediastinum. Normal hilar regions. Normal visualized trachea and bronchi. The lungs are well expanded. Mild diffuse groundglass edema is present throughout both lungs. There is no visualized consolidation or pleural effusions. Normal pleura. Normal chest wall structures. There are degenerative changes of thoracic spine. Moderate size hiatal hernia noted. IMPRESSION: 1. No demonstrated pulmonary embolism or arterial dissection. 2. Mild diffuse groundglass edema is present throughout both lungs, most likely due to underlying cardiac disease. There is no visualized consolidation or pleural effusions. STUDY: CTA OF THE ABDOMEN AND PELVIS TECHNICAL QUALITY: Good COMPARISON: None. Descriptors of Narrowing: None (0%) Mild (< 50%) Moderate (50-70%) Severe (70-90%) Subtotal/Total Occlusion (90-100%) Non-Evaluable (technically non-diagnostic FINDINGS: Diffuse atherosclerotic calcifications are present throughout the abdominal aorta and some of his major branches. Abdominal aorta: There is mild diffuse narrowing. There is no demonstrated aortic dissection or aneurysmal dilatation. Celiac and superior mesenteric arteries: No demonstrated narrowing. Inferior mesenteric artery: No demonstrated narrowing. Right renal artery(arteries): No demonstrated narrowing. Left renal artery(arteries): No demonstrated narrowing. Right common iliac artery: No demonstrated narrowing. Right external iliac artery: No demonstrated narrowing. Right internal iliac artery: No demonstrated narrowing. Left common iliac artery: No demonstrated narrowing. Left external iliac artery: No demonstrated narrowing. Left internal iliac artery: No demonstrated narrowing. Nonvascular findings: Normal liver. There are surgical clips in the gallbladder fossa consistent with a prior cholecystectomy. Normal spleen. Normal pancreas. Normal bilateral adrenal glands. There is moderate cortical atrophy of the right kidney, consistent with chronic medical renal disease. There is mild cortical atrophy of the left kidney, consistent with chronic medical renal disease. A small to moderate size simple cyst is present in the midpole of the right kidney. A conglomerate of dense calcifications are seen on the cortex and anterior aspect of the left kidney which appears to represent sequela of an old capsular injury or a collapse calcified cyst but no solid mass or neoplastic appearing process is seen. Normal visualized stomach. Normal small intestine. There are multiple colonic diverticula consistent with diverticulosis. The appendix is visualized and appears normal. There is diffuse atherosclerotic calcification of the abdominal aorta, without a demonstrated aneurysm. Normal inferior vena cava. Normal retroperitoneum. Normal urinary bladder. There is absence of the uterus consistent with a prior hysterectomy. Normal abdominal wall. There are diffuse degenerative changes of the visualized lumbar spine. Right hip prosthesis noted. Chronic and previously treated compression deformities of the L1 and L2 vertebral bodies with kyphoplasty material. No visualized acute fractures or new compression deformities. CT/CTA Chst, Abd, Pel W and/or WO IMPRESSION: 1. No abdominal aortic dissection or aneurysmal dilatation 2. Colonic diverticulosis 3. Chronic and previously treated compression deformities of the L1 and L2 vertebral bodies with kyphoplasty material. No visualized acute fractures or new compression deformities. Electronically Signed: Rudy Torres MD at 12:07 EDT ,
--- NOTE | 2022-12-14 10:22 | CT_ITS ---
STUDY: CT THORACIC SPINE WITHOUT CONTRAST REASON FOR EXAM: Female, 82 years old. Back pain for 1 week, hypertension. RADIATION DOSAGE (If Supplied By Facility): CTDIvol = ( 18.95 ) mGy, DLP = ( 583.64 ) mGycm TECHNIQUE: The patient was scanned in a multi detector CT scanner. High resolution imaging was performed. Images were obtained from to . Sagittal and coronal images were reconstructed. Individualized dose optimization techniques were used for this CT. COMPARISON: Chest x-ray dated October 20, 2020 FINDINGS: Redemonstration of vertebral plana deformity of the T8 vertebral body related to an old and chronic compression deformity. Previously treated and chronic compression deformities of L1 and L2 vertebral bodies noted with kyphoplasty material. There are also chronic mild to moderate compression deformities of the T7 and T9 vertebral bodies. There are no visualized new/acute vertebral body or posterior element fractures. Exaggeration of thoracic kyphosis is unchanged and centered around the T8 vertebra plana deformity. The bony structures are diffusely demineralized. Mild dextroscoliosis is present. Mild disc space narrowing and endplate spurring is present at several levels. No significant central canal stenosis is seen. Mild to moderate foraminal stenosis is present at T9-T10 and T10-T11 with nerve root impingement. Normal visualized cervical spine. The soft tissue structures are unremarkable. CT/Spine Thoracic without Contras IMPRESSION: 1. Multiple chronic compression deformities of T7, T8, T9, and L1 and L2. 2. No visualized new vertebral body fracture or compression deformity. 3. Multilevel degenerative changes Electronically Signed: Rudy Torres MD at 11:55 EDT ,
[2022-12-14 10:34] LABS: Absolute Lymphocyte Count 1.86 X10^3/uL (0.83-4.51); Absolute Neutrophil Count 4.7 X10^3/uL (2.0-7.7); Basophil# 0.03 X10^3/uL; Basophil% 0.4 % (0-1); Eosinophil# 0.25 X10^3/uL; Eosinophils% 3.3 % (0-5); Hematocrit 37.8 % (37-47); Hemoglobin 12.3 g/dL (12.0-15.0); Lymphocyte # 1.86 X10^3/ul (0.83-4.51); Lymphocyte % 24.6 % (19-41); Mean Corp Hgb Conc 32.5 g/dL (32-36); Mean Corpuscular Hgb 28.7 pg (27.0-32.0); Mean Corpuscular Volume 88.1 fL (81-99); Mean Platelet Vol. 9.2 fl (6.2-12.0); Monocyte# 0.77 X10^3/uL; Monocyte% 10.2 % (0-10); NRBC Flagged by Analyzer 0 % (0-5); Neutrophil # 4.65 X10^3/uL (2.7-7.7); Neutrophil % 61.4 % (47-70); Platelet Count 248 K/mm3 (150-450); RBC Distribution Width CV 14.6 % (11.6-14.6); RBC Distribution Width SD 46.8 fl (35.1-43.9); Red Blood Count 4.29 M/mm3 (4.2-5.4); White Blood Count 7.6 K/mm3 (4.4-11.0)
[2022-12-14] MEDS: Ondansetron 4 MG/2 ML Vial IV (10:42)
[2022-12-14] MEDS: Morphine 4 MG/ML Syringe IV (10:42)
--- NOTE | 2022-12-14 10:45 | ED.VIS.CHEST ---
HPI History of Present Illness Chief Complaint: Abn Labs Informant: patient Narrative Narrative: Patient is an 82-year-old female with history of proximal atrial fibrillation (on Xarelto and adamant she has not missed any doses), anxiety, bipolar disorder and dementia presenting with back pain rating to her chest. She states it started a few days ago. She notes it is gradual in onset. Denies any ripping or tearing sensation. Is been taken Tylenol with no relief. A week ago she did slip out of her wheelchair but she states she just landed on her buttocks and was very slow fall. Denies any injury. Denies any numbness or tingling in her extremities. It is worse with deep breathing. She states she never had anything like this before. I question that her charts that she has a history of L1 lumbar compression fracture however she is not aware of this. Her daughter notes that she does get very anxious. No other complaints or concerns at this time. [facility] Medical History Anemia Anxiety Atrial fibrillation Bipolar disorder C. difficile diarrhea Cancer Cephalalgia Chronic use of benzodiazepine for therapeutic purpose Compression fracture of L1 lumbar vertebra Dehydration Dementia Depression Diverticulitis large intestine Dysphagia Essential hypertension Fall GERD (gastroesophageal reflux disease) HAP (hospital-acquired pneumonia) History of breast cancer History of CVA (cerebrovascular accident) Hypertension Hypokalemia Hypomagnesemia Hypophosphatemia Intestinal malabsorption, unspecified Iron deficiency Iron deficiency anemia Leukocytosis Nausea and vomiting Osteoporosis Parkinsons disease Paroxysmal A-fib Restless leg Sepsis Severe sepsis Syncope Vertigo Vomiting Home Medications lamotrigine 25 mg tablet 25 mg PO DAILY 02/13/19 [History Last Taken Unknown] pantoprazole 40 mg tablet,delayed release 40 mg PO DAILY 06/02/20 [History Last Taken Unknown] ropinirole 0.5 mg tablet 1 mg PO QHS 11/23/20 [History Last Taken Unknown] rivaroxaban 15 mg tablet 15 mg PO DAILY #30 tabs 03/16/22 [Rx Last Taken Unknown] sertraline 100 mg tablet 100 mg PO DAILY 04/04/22 [History Last Taken Unknown] propranolol 10 mg tablet 10 mg PO BID #60 tabs 10/16/22 [Rx Last Taken Unknown] propafenone 150 mg tablet 150 mg PO TID #270 tabs 10/27/22 [Rx Last Taken Unknown] furosemide 40 mg tablet 40 mg PO DAILY #90 tabs 12/05/22 [Rx Last Taken Unknown] Allergy/AdvReac Type Severity Reaction Status Date / Time clonazepam Allergy Intermediate Other Verified 10/11/22 14:40 tramadol Allergy Intermediate Other Verified 10/11/22 14:40 meclizine [From Antivert] Allergy Unknown Unknown Verified 10/11/22 14:40 atorvastatin calcium Allergy Unknown Verified 10/11/22 14:40 [From Lipitor] Penicillins Allergy Hives Verified 10/11/22 14:40 propoxyphene HCl Allergy Other Verified 10/11/22 14:40 [From Darvon] Sulfa (Sulfonamide Allergy Unknown Verified 10/11/22 14:40 Antibiotics) codeine AdvReac Upset Verified 10/11/22 14:40 Stomach hydrocodone AdvReac Upset Verified 12/14/22 09:44 Stomach iron AdvReac Vomiting Verified 10/11/22 14:40 oxycodone [From Percocet] AdvReac Vomiting Verified 10/11/22 14:40 Family History Other Breast cancer Hypertension Surgical History Hip fracture, right History of appendectomy History of bilateral mastectomy History of cholecystectomy History of hysterectomy History of mastectomy Social History household members: none current occupational status: retired Smoking Status: Never smoker alcohol intake: never substance use type: does not use what type of physical activity do you participate in: none seatbelt use: always do you feel safe at home: Yes additional social history: recently ROS ROS ED Constitutional Constitutional ED: Denies chills or fever(s) ENT ENT ED: Denies sore throat Cardiovascular Cardiovascular: Reports as per HPI and chest pain Respiratory/Chest Respiratory/Chest: Denies cough or dyspnea Gastrointestinal Gastrointestinal: Denies abdominal pain, constipation, nausea or vomiting Musculoskeletal Musculoskeletal: Reports back pain; Denies arthralgias or myalgias Integumentary Denies rash Neurologic Neurologic: Denies headache(s) Psychiatric Psychiatric: Reports anxiety Hematologic/Lymphatic Hematologic/Lymphatic: Reports easy bleeding and easy bruising EXAM Physical Exam Const Vital Signs: 12/14/22 09:40 12/14/22 10:00 12/14/22 09:41 Temperature 97.4 F L 97.4 F L Temperature Source Temporal Temporal Pulse Rate 81 77 Respiratory Rate 20 H 16 Respiratory Effort Normal Respiratory Pattern Normal Blood Pressure 101/62 112/64 Blood Pressure Mean 75 80 Pulse Ox 95 95 Oxygen Delivery Method Room Air Room Air 12/14/22 10:05 12/14/22 11:41 12/14/22 13:04 Temperature Temperature Source Pulse Rate 81 78 Respiratory Rate 20 H 16 Respiratory Effort Respiratory Pattern Blood Pressure 119/67 102/87 H Blood Pressure Mean 84 92 Pulse Ox 96 Oxygen Delivery Method Room Air Room Air Room Air 12/14/22 13:47 Temperature 96.9 F L Temperature Source Temporal Pulse Rate 80 Respiratory Rate 20 H Respiratory Effort Respiratory Pattern Blood Pressure 139/80 H Blood Pressure Mean 99 Pulse Ox 96 Oxygen Delivery Method Room Air Positive well nourished and well developed General Appearance ED: well developed and NAD HEENT Reports moist mucous membranes normocephalic and atraumatic Eyes PERRL and EOMs intact bilaterally Neck supple and no JVD Chest Wall inspection of chest normal and palpation of chest normal Chest Narrative: No chest wall crepitus. No reproducible tenderness palpation of the chest. Resp normal respiratory effort and clear to auscultation bilaterally Cardio regular rate, regular rhythm and no murmurs GI normal to inspection, nondistended, normoactive bowel sounds and soft to palpation Back/Spine no thoracic nor lumbar tenderness Back/Spine Narrative: Diffuse tenderness of the thoracic region around the level of T4-7 however there is no pinpoint area of tenderness or midline tenderness. Extremity normal to inspection Extremity Narrative: 1+ DP pulse on the right. 2+ on the left. 2+ bilateral radial pulses. General Extremety ED: Negative for edema General Extremity: Negative for edema Neuro Neuro Narrative: No focal deficits appreciated. Patient at her baseline. Sensorium / Orientation: awake and alert Motor Exam: general weakness Psych Mood & Affect: anxious and tearful Skin no rashes or lesions noted and no wounds Heart Score History: Slightly/Non-Suspicious ECG: Nonspecific Repolarization Age: >/= 65 years Risk Factors: 1 or 2 Risk Factors Troponin: </= Normal Limit Score: 4 MDM MDM MDM Narrative Medical decision making narrative: Patient's of evaluated for back pain rating to her chest. Vital signs are normal in the ER however patient does have asymmetric pedal pulses and decision is made to perform CTA study to rule out dissection. Did discuss risk and benefits of giving contrast. CTA is negative for any acute dissection however she does have some groundglass changes to her lungs which could be related to CHF. Clinically patient does not appear fluid overloaded. Her BNP is only minimally elevated at 109.8. High-sensitivity troponin is normal at 8 and stable on repeat. EKG does not show ischemic changes. Patient has multiple chronic compression fractures of her thoracic and lumbar spine and I question if this to be causing her pain especially as she did fall of her wheelchair a week ago. Does not appear to be any acute fracture. Patient is given a dose of morphine in the ER for pain control. She has slight improvement of her symptoms with this. Given her age, anticoagulation, history of dementia and the fact that she lives all alone at home, patient and daughter feel that patient would benefit from at least an overnight stay in the hospital for pain management and repeat evaluation in the morning with possible evaluation for rehab. Case is discussed with admitting physician, Dr. Messina who is agreeable. I do not think patient requires admission from a cardiac/chest pain standpoint. Lab Data Attestation: I reviewed the patient's lab results. Labs: Laboratory Results - last 24 hr 12/14/22 12/14/22 12/14/22 10:25 10:25 10:25 WBC 7.6 RBC 4.29 Hgb 12.3 Hct 37.8 MCV 88.1 MCH 28.7 MCHC 32.5 RDW Std Deviation 46.8 H RDW Coeff of Junaid 14.6 Plt Count 248 MPV 9.2 Immature Gran % (Auto) 0.100 Neut % (Auto) 61.4 Lymph % (Auto) 24.6 Mercer % (Auto) 10.2 H Eos % (Auto) 3.3 Baso % (Auto) 0.4 Absolute Neuts (auto) 4.7 Absolute Lymphs (auto) 1.86 Nucleated RBC % 0 Sodium 134 L Potassium 3.6 Chloride 103 Carbon Dioxide 28.0 Anion Gap 3 L BUN 24 H Creatinine 1.35 H Estim Creat Clear Calc 27.49 Est GFR (MDRD) Af Amer 48 L Est GFR (MDRD) Non-Af 40 L BUN/Creatinine Ratio 17.8 Glucose 126 H Calcium 9.0 Magnesium 2.6 Troponin I High Sens 8 B-Natriuretic Peptide 109.8 H 12/14/22 13:00 WBC RBC Hgb Hct MCV MCH MCHC RDW Std Deviation RDW Coeff of Junaid Plt Count MPV Immature Gran % (Auto) Neut % (Auto) Lymph % (Auto) Mercer % (Auto) Eos % (Auto) Baso % (Auto) Absolute Neuts (auto) Absolute Lymphs (auto) Nucleated RBC % Sodium Potassium Chloride Carbon Dioxide Anion Gap BUN Creatinine Estim Creat Clear Calc Est GFR (MDRD) Af Amer Est GFR (MDRD) Non-Af BUN/Creatinine Ratio Glucose Calcium Magnesium Troponin I High Sens 8 B-Natriuretic Peptide Radiography Diagnostic Testing: Clinical Impression(s) from Imaging Studies Chest/Abdomen/Pelvis CTA 12/14/22 10:21 IMPRESSION: 1. No abdominal aortic dissection or aneurysmal dilatation 2. Colonic diverticulosis 3. Chronic and previously treated compression deformities of the L1 and L2 vertebral bodies with kyphoplasty material. No visualized acute fractures or new compression deformities. Electronically Signed: Rudy Torres MD at 12:07 EDT Reading Location ID and State: [address] [place] [address] , Service support , Thoracic Spine CT 12/14/22 10:22 IMPRESSION: 1. Multiple chronic compression deformities of T7, T8, T9, and L1 and L2. 2. No visualized new vertebral body fracture or compression deformity. 3. Multilevel degenerative changes Electronically Signed: Rudy Torres MD at 11:55 EDT Reading Location ID and State: [address] [place] [address] , Service support , Rhythm Strip Rhythm Strip: Sinus Rhythm Rate: 80 Ectopy: None EKG Initial EKG: Attestation: I personally reviewed and interpreted this EKG as follows: Comments: Sinus rhythm with first-degree AV block Rate of 80 bpm PA interval of 272 Normal axis Minimal voltage criteria for LVH No ST segment abnormalities Differential Diagnosis Chest pain/SOB: pulmonary embolism Reason(s) PE less likely: Positive for not tachycardic, not hypoxic and patient taking oral anticoagulants, ACS ACS: Positive for no evidence of ACS based on cardiac biomarkers, EKG without ischemia and history not suggestive of ischemia pain, pneumothorax Reason(s) pneumothorax less likely: Positive for bilateral breath sounds and [employer] withhout PTX and aortic dissection Reason(s) Aortic dissection less likely:: Positive for normal neurological exam, no ripping/tearing pain, blood pressure appropriate in ED and other (No dissection on CTA of the chest abdomen pelvis) Management Discussion w/another healthcare provider: Hospitalist Discharge Plan Dx/Rx/DC Orders Clinical Impression: Debility, Thoracic compression fracture, Lumbar compression fracture, Paroxysmal A-fib Disposition Disposition: Acute Care Hospital [facility] Discharge Date/Time: 12/14/22 14:41
[2022-12-14 10:53] LABS: BNP,B-Type NATRIURETIC PEPTIDE 109.8 pg/mL (0-100)
[2022-12-14 10:56] LABS: Anion Gap 3 (5-15); BUN 24 mg/dL (7-18); BUN/Creat Ratio 17.8 RATIO (10-20); Chloride 103 mmol/L (98-107); Creatinine, Serum 1.35 mg/dL (0.55-1.02); EST Glomerular Filtration Rate 40 mL/min (>60); Est Glom Filt Rate - Afr Amer 48 mL/min (>60); Estimated Creatinine Clearance 27.49 ml/min; Glucose 126 mg/dL (74-106); Magnesium 2.6 mg/dL (1.6-2.6); Potassium 3.6 mmol/L (3.5-5.1); Sodium Level 134 mmol/L (136-145); Troponin-I HS (w/2H Reflex) 8 pg/mL (3.0-54.0)
[2022-12-14 12:31] LABS: Reflex Troponin-HS? (from REC) Y
--- NOTE | 2022-12-14 13:27 | ED.RN ---
PT REFUSED PO NORCO. PT STATES MY PAIN IS MUCH BETTER BUT I AM GLAD I AM STAYING. THIS RN EDUCATED PT ON WHY NORCO WAS ORDERED AND PT STATED AGAIN LETS HOLD OFF ON THAT MY PAIN IS GOOD RIGHT NOW.
[2022-12-14 13:42] LABS: Troponin-I HS 8 pg/mL (3.0-54.0)
--- NOTE | 2022-12-14 13:58 | PCM.HP.STD ---
[facility] - General General Date of Admission: 12/14/22 Date of Service: 12/14/22 Chief Complaint: Intractable back pain/debility HPI Narrative KATERIN SANDOVAL, is a 82 F who presented to the emergency department at [facility] on 12/14/2022 with intractable back pain and debility. She has a complex medical history. She currently is living alone and is on Xarelto for PAF. She is fairly wheelchair dependent at baseline but slid out of her wheelchair and landed on her buttock approximately 1 week ago. She states she had increased pain since that point time in her chest and back. She denied any other injury specific to that event however did admit that she had increased pain since that event. Her chest/back pain is worse with deep breathing. She stated she had never had anything like this before. It is noted in her previous history that she has an L1 compression fracture and it is documented that kyphoplasty was performed per the CT scans that were performed however she stated that she was unaware of this. Unfortunately her daughter was not at the bedside at the time of my evaluation so I could not question further. She denies any other symptoms other than pain. She is reluctant to go to rehab but stated that she would be willing if need be to get back home. She does not have a whole lot of support system in her home from what it sounds like however the accuracy of her history is questionable with her memory loss. Vital signs at presentation demonstrated temperature of 97.4, heart rate 81, blood pressure 101/62, respiratory is 20 and oxygen saturation was 95% on room air. Her CBC is unremarkable. Chemistry panel shows mild hyponatremia with a sodium of 134, elevated BUN and creatinine at 24 and 1.35 which appear to be her baseline, mildly elevated glucose at 126. Troponin was 8 with initial and delta and her BNP was slightly elevated at 109.8. She did not appear to be volume overloaded. EKG showed normal sinus rhythm without any ST-T wave changes concerning for acute ischemia. Intervals were normal. CTA of the chest abdomen pelvis was performed and showed no PE or arterial dissection, mild diffuse groundglass edema throughout both lung amaro, moderate size hiatal hernia and significant mitral valve calcifications. Patient also appeared to have a loop recorder in her left chest. CT of the thoracic spine showed multiple chronic compression fractures of T7, T8, T9, L1, and L2. L1 and L2 appear to have previous kyphoplasty, no new vertebral body fractures or compression deformities were identified, she had multi level degenerative changes as well. With her debility and her ongoing pain her daughter was concerned with her going home as she does live alone. She was admitted with hopeful placement. [facility] Medical History Anemia Anxiety Atrial fibrillation Bipolar disorder C. difficile diarrhea Cancer Cephalalgia Chronic use of benzodiazepine for therapeutic purpose Compression fracture of L1 lumbar vertebra Dehydration Dementia Depression Diverticulitis large intestine Dysphagia Essential hypertension Fall GERD (gastroesophageal reflux disease) HAP (hospital-acquired pneumonia) History of breast cancer History of CVA (cerebrovascular accident) Hypertension Hypokalemia Hypomagnesemia Hypophosphatemia Intestinal malabsorption, unspecified Iron deficiency Iron deficiency anemia Leukocytosis Nausea and vomiting Osteoporosis Parkinsons disease Paroxysmal A-fib Restless leg Sepsis Severe sepsis Syncope Vertigo Vomiting Home Medications lamotrigine 25 mg tablet 25 mg PO DAILY 02/13/19 [History Last Taken Unknown] pantoprazole 40 mg tablet,delayed release 40 mg PO DAILY 06/02/20 [History Last Taken Unknown] ropinirole 0.5 mg tablet 1 mg PO QHS 11/23/20 [History Last Taken Unknown] rivaroxaban 15 mg tablet 15 mg PO DAILY #30 tabs 03/16/22 [Rx Last Taken Unknown] sertraline 100 mg tablet 100 mg PO DAILY 04/04/22 [History Last Taken Unknown] propranolol 10 mg tablet 10 mg PO BID #60 tabs 10/16/22 [Rx Last Taken Unknown] propafenone 150 mg tablet 150 mg PO TID #270 tabs 10/27/22 [Rx Last Taken Unknown] furosemide 40 mg tablet 40 mg PO DAILY #90 tabs 12/05/22 [Rx Last Taken Unknown] Allergy/AdvReac Type Severity Reaction Status Date / Time clonazepam Allergy Intermediate Other Verified 10/11/22 14:40 tramadol Allergy Intermediate Other Verified 10/11/22 14:40 meclizine [From Antivert] Allergy Unknown Unknown Verified 10/11/22 14:40 atorvastatin calcium Allergy Unknown Verified 10/11/22 14:40 [From Lipitor] Penicillins Allergy Hives Verified 10/11/22 14:40 propoxyphene HCl Allergy Other Verified 10/11/22 14:40 [From Darvon] Sulfa (Sulfonamide Allergy Unknown Verified 10/11/22 14:40 Antibiotics) codeine AdvReac Upset Verified 10/11/22 14:40 Stomach hydrocodone AdvReac Upset Verified 12/14/22 09:44 Stomach iron AdvReac Vomiting Verified 10/11/22 14:40 oxycodone [From Percocet] AdvReac Vomiting Verified 10/11/22 14:40 Family History Other Breast cancer Hypertension Surgical History Hip fracture, right History of appendectomy History of bilateral mastectomy History of cholecystectomy History of hysterectomy History of mastectomy Social History (Updated 12/14/22 @ 16:[address] Melony Messina DO) household members: none current occupational status: retired Smoking Status: Never smoker alcohol intake: never substance use type: does not use what type of physical activity do you participate in: none seatbelt use: always do you feel safe at home: Yes additional social history: recently ROS Constitutional Constitutional: Reports weakness; Denies anorexia, change in weight, chills, fatigue, fever(s), malaise, night sweats or other Eyes Eyes: Denies blurry vision, change in eye color, change in vision, discharge from eye(s), double vision, erythema, eye pain, loss of vision or other ENT HEENT: Denies abnormal hearing, dysphagia, ear pain, epistaxis, headache(s), hearing loss, nasal congestion, nasal discharge, post nasal drip, sinus pressure, sore throat or other Cardiovascular Cardiovascular: Denies chest pain, claudication, dyspnea on exertion, edema, lightheadedness, orthopnea, palpitations, paroxysmal nocturnal dyspnea, rapid heart rate, syncope or other Respiratory/Chest Respiratory/Chest: Denies cough, dyspnea, excessive phlegm production, hemoptysis, productive cough, shortness of breath at rest, shortness of breath with exertion, wheezing or other Gastrointestinal Gastrointestinal: Denies abdominal pain, coffee ground emesis, constipation, diarrhea, dyspepsia, hematemesis, hematochezia, loose stools, melena, nausea, vomiting or other Genitourinary Genitourinary: Denies burning urination, difficulty urinating, dysuria, hematuria, nocturia, urinary frequency, urinary hesitancy, urinary incontinence, urinary urgency or other Musculoskeletal Musculoskeletal: Reports arthralgias, back pain and joint stiffness Neurologic Neurologic: Denies abnormal gait, abnormal speech, confusion, disequilibrium, dizziness, focal weakness, headache(s), numbness, paresthesias, seizure-like activity, seizures, syncope, tingling, tremor(s) or other Psychiatric Psychiatric: Reports anxiety and depression; Denies homicidal ideation, suicidal ideation or other Endocrine Endocrinology: Denies change in body appearance, cold intolerance, excessive sweating, heat intolerance, polydipsia, polyuria or other Hematologic/Lymphatic Hematologic/Lymphatic: Denies anemia, easy bleeding, easy bruising, lymphadenopathy or other Allergic/Immunologic Allergic/Immunologic: Denies rhinitis, hives, eczemia, asthma or other Vital Signs Vital Signs Vital Signs: 12/14/22 09:40 12/14/22 10:00 12/14/22 09:41 Temperature 97.4 F L 97.4 F L Temperature Source Temporal Temporal Pulse Rate 81 77 Respiratory Rate 20 H 16 Respiratory Effort Normal Respiratory Pattern Normal Blood Pressure 101/62 112/64 Blood Pressure Mean 75 80 Pulse Ox 95 95 Oxygen Delivery Method Room Air Room Air 12/14/22 10:05 12/14/22 11:41 12/14/22 13:04 Temperature Temperature Source Pulse Rate 81 78 Respiratory Rate 20 H 16 Respiratory Effort Respiratory Pattern Blood Pressure 119/67 102/87 H Blood Pressure Mean 84 92 Pulse Ox 96 Oxygen Delivery Method Room Air Room Air Room Air 12/14/22 13:47 Temperature 96.9 F L Temperature Source Temporal Pulse Rate 80 Respiratory Rate 20 H Respiratory Effort Respiratory Pattern Blood Pressure 139/80 H Blood Pressure Mean 99 Pulse Ox 96 Oxygen Delivery Method Room Air Weight Weight: 84.4 kg Body Mass Index (BMI) 32.9 Physical Exam Const alert, oriented x3, no apparent distress and well nourished Constitutional Narrative: Elderly white female sitting up in bed, appears comfortable, nontoxic, is alert and oriented but appears to have some memory loss with questioning General Appearance: cooperative HEENT normocephalic, head/scalp atraumatic, hearing grossly normal bilaterally and moist oral mucous membranes HEENT Narrative: Mallampati 2, dentition is poor, no thrush, upper dentures in place Eyes PERRL, EOMs intact bilaterally and conjunctivae normal Eyes Narrative: No scleral icterus Neck no lymphadenopathy, supple, no JVD and no carotid bruits Neck Narrative: Trachea midline, no thyroid enlargement Resp normal respiratory effort, no retractions, no use of accessory muscles and clear to auscultation bilaterally Auscultation: Negative for rales, rhonchi or wheezes Cardio regular rate, regular rhythm, S1 normal heart sound, S2 normal heart sound, no murmurs, no rub, no gallops and no clicks GI normal to inspection, nondistended, normoactive bowel sounds, soft to palpation and non-tender Extremity Extremity Narrative: 2+ pedal pulses, trace bilateral lower extremity pitting edema distally, no cyanosis or clubbing, notable leg length discrepancy with right leg considerably shorter than the left Skin no wounds, skin turgor normal, no jaundice, no petechiae and no mottling Skin Narrative: Scattered ecchymosis with various stages of healing Neuro oriented x3, CN's II-XII intact bilaterally, moves all extremities and no focal motor deficits Speech: speech normal Psych affect normal Mood & Affect: anxious Results Lab / Micro Data Result Diagrams: 12/14/22 10:25 12/14/22 10:25 Labs: Laboratory Results - last 24 hr 12/14/22 10:25: WBC 7.6, RBC 4.29, Hgb 12.3, Hct 37.8, MCV 88.1, MCH 28.7, MCHC 32.5, RDW Std Deviation 46.8 H, RDW Coeff of Junaid 14.6, Plt Count 248, MPV 9.2, Immature Gran % (Auto) 0.100, Neut % (Auto) 61.4, Lymph % (Auto) 24.6, [place] % (Auto) 10.2 H, Eos % (Auto) 3.3, Baso % (Auto) 0.4, Absolute Neuts (auto) 4.7, Absolute Lymphs (auto) 1.86, Nucleated RBC % 0 12/14/22 10:25: Sodium 134 L, Potassium 3.6, Chloride 103, Carbon Dioxide 28.0, Anion Gap 3 L, BUN 24 H, Creatinine 1.35 H, Estim Creat Clear Calc 27.49, Est GFR (MDRD) Af Amer 48 L, Est GFR (MDRD) Non-Af 40 L, BUN/Creatinine Ratio 17.8, Glucose 126 H, Calcium 9.0, Magnesium 2.6, Troponin I High Sens 8 12/14/22 10:25: B-Natriuretic Peptide 109.8 H 12/14/22 13:00: Troponin I High Sens 8 Radiology Impression Chest/Abdomen/Pelvis CTA 12/14/22 10:21 IMPRESSION: 1. No abdominal aortic dissection or aneurysmal dilatation 2. Colonic diverticulosis 3. Chronic and previously treated compression deformities of the L1 and L2 vertebral bodies with kyphoplasty material. No visualized acute fractures or new compression deformities. Electronically Signed: Rudy Torres MD at 12:07 EDT , Thoracic Spine CT 12/14/22 10:22 IMPRESSION: 1. Multiple chronic compression deformities of T7, T8, T9, and L1 and L2. 2. No visualized new vertebral body fracture or compression deformity. 3. Multilevel degenerative changes Electronically Signed: Rudy Torres MD at 11:55 EDT , Assessment & Plan Assessment/Plan (1) Intractable back pain: (2) Thoracic compression fracture: (3) Lumbar compression fracture: (4) Debility: (5) Anxiety: PLAN: Plan Intractable back pain secondary to chronic thoracic and lumbar compression fractures -Previous kyphoplasty noted at L1 and L2 on imaging and no acute findings noted--> I suspect she flared up her existing pathology with her fall out of her wheelchair a week ago -Patient with multiple medication allergies--> will avoid opiates and Ultram -Scheduled Tylenol -Gabapentin 100 mg 3 times daily -Topical lidocaine patch to affected area -K-pad -Check vitamin D level as I do anticipate she has osteoporosis -Consult social work/case management for likely placement at discharge -Patient with general Medicare product and should be able to go once medically stable -Could consider pain management follow-up after discharge Debility -PT/OT consultation -Anticipate placement at discharge Anxiety -Chronic issue -Start BuSpar 5 mg daily Paroxysmal atrial fibrillation -Continue propafenone -Continue propranolol -Continue rivaroxaban GERD -Continue Protonix Hypertension -Continue furosemide -Continue propranolol History of breast cancer -Status post bilateral mastectomy Previous right hip fracture -Status post replacement but has significant leg length discrepancy which is left her in chronic pain and fairly disabled -Uses wheelchair chronically Restless leg syndrome -Continue ropinirole Dementia -Monitor clinically -Increases risk for acute delirium during hospitalization Bipolar disorder -Continue Lamictal -continue Zoloft Obesity -BMI 31.3 -Complicates treatment, prognosis, outcomes -Recommend weight loss DVT prophylaxis -Patient fully anticoagulated with rivaroxaban we will continue CODE STATUS -Full code Charges/Coding Visit Charges Inpatient E&M: 16063 Init Hosp L3
[2022-12-14 18:19] LABS: Vitamin D,25 Hydroxy 31.5 ng/mL
[2022-12-14] MEDS: Rivaroxaban 15 MG Tablet PO (18:38)
[2022-12-14] MEDS: Gabapentin 100 MG Capsule PO (18:41)
[2022-12-14] MEDS: MELATONIN 3 MG TABLET PO (21:52)
[2022-12-14] MEDS: Acetaminophen 500 MG Tablet 1000 MG PO (21:55)
[2022-12-14] MEDS: Pramipexole Di-HCl 0.5 MG Tablet PO (21:55)
[2022-12-14] MEDS: Propranolol 10 MG Tablet PO (21:56)
[2022-12-14] MEDS: Propafenone 150 MG Tablet PO (21:56)
[2022-12-15] MEDS: Menthol/Lanolin/Calamine/Znox 113 GM Tube 1 APPLIC TOPICAL ×2 (05:21→08:09)
[2022-12-15] MEDS: Acetaminophen 500 MG Tablet 1000 MG PO ×2 (05:21→14:32)
[2022-12-15] MEDS: Propafenone 150 MG Tablet PO ×2 (05:21→14:23)
[2022-12-15 05:26] VITALS: BP 123/70; PULSE 70; RESP 16; TEMP 36.6; O2SAT 98
[2022-12-15 05:58] LABS: Anion Gap 4 (5-15); BUN 23 mg/dL (7-18); BUN/Creat Ratio 16.2 RATIO (10-20); Calcium,Total 8.9 mg/dL (8.5-10.1); Chloride 104 mmol/L (98-107); Creatinine, Serum 1.42 mg/dL (0.55-1.02); EST Glomerular Filtration Rate 38 mL/min (>60); Est Glom Filt Rate - Afr Amer 46 mL/min (>60); Estimated Creatinine Clearance 26.14 ml/min; Glucose 102 mg/dL (74-106); Magnesium 2.7 mg/dL (1.6-2.6); Phosphorus 4.1 mg/dL (2.5-4.9); Potassium 3.6 mmol/L (3.5-5.1); Sodium Level 138 mmol/L (136-145); Thyroid Stim Hormone (TSH) 1.32 uIU/mL (0.358-3.74)
[2022-12-15] MEDS: Gabapentin 100 MG Capsule PO ×3 (08:06→17:28)
[2022-12-15] MEDS: lamoTRIgine 25 MG Tablet PO (08:07)
[2022-12-15] MEDS: Propranolol 10 MG Tablet PO (08:08)
[2022-12-15] MEDS: Sertraline 100 MG Tablet PO (08:08)
[2022-12-15] MEDS: busPIRone 5 MG Tablet PO (08:08)
[2022-12-15] MEDS: Furosemide 40 MG Tablet PO (08:08)
[2022-12-15] MEDS: Lidocaine 5% Patch 1 PATCH TOPICAL (08:09)
[2022-12-15] MEDS: Pantoprazole Sodium 40 MG Tablet PO (08:09)
[2022-12-15 10:00] VITALS: O2SAT 96
--- NOTE | 2022-12-15 10:19 | CASEMGMT ---
Social Work SW met with pt and introduced self and role of SW. Pt willing to talk openly with SW. Pt has lived home alone for the past year since her spouse . Pt states she is in a wheelchair but is able to transfer independently and able to dress herself. Pt has a helper Nettie who comes Tuesdays and Fridays and assists with showers and takes to appointments or errands. Pt states she does have a daughter Virginia who is attentive, pays bills and assists as needed. Pt states that although there is food in the house (Virginia provides some and Nettie buys some) pt only eats ice cream and oreos. Pt presentation is very anxious. Pt stating that she always feels anxious and recently called PCP for something for her nerves but PCP recommending psychiatry. Pt made an appointment with Dr. Ceballos and first available appointment is Mar.21. SW spoke with pt regarding returning home. Pt states that she does not feel safe to return home at this time. A list of SNF providers including quality and resource use data and consistent with the patient?s preferred geographic region, medical needs, and insurance network were provided from the [employer] Guide. Pt preferred provider is [facility]. Irais discharge certified ophthalmic assistant updated and to make referral. Will wait on determination of acceptance. Plan: [facility], pending acceptance CLAU Hernández
--- NOTE | 2022-12-15 10:19 | CASEMGMT ---
Discharge Planning Referral was made to [facility] via [facility]. Irais Gaffney
[2022-12-15 10:34] VITALS: O2SAT 93
--- NOTE | 2022-12-15 10:53 | CASEMGMT ---
Discharge Planning Message left w/Siobhan @ [facility] to check on bed availability and to update her on discharge status. Irais Gaffney
--- NOTE | 2022-12-15 11:20 | CM.UR ---
Discharge Planning Referral to [facility] cancelled. Patient wishes to return home. Irais Gaffney
--- NOTE | 2022-12-15 11:21 | CASEMGMT ---
Social Work LUIS ENRIQUE spoke with PT who states pt did very will with therapy and recommend return home with home health PT/OT. LUIS ENRIQUE met with pt and pt dgt on speaker phone. All parties agreeable to plan to return home with home health. A list of Home Health providers including quality and resource use data and consistent with the patient?s preferred geographic region, medical needs, and insurance network were provided from the [employer] Guide. Pt preferred provider is [facility]. DONALD Kraus updated. abby Braxton entry level administrative assistant updated and to notify [facility]. Physician updated. LUIS ENRIQUE inquired about transportation and pt states she will call her helper Nettie to assist. SW spoke with pt regarding counseling for anxiety. Pt states she has seen a counselor in the past and is not interested at this time. Pt will wait for appt with Dr. Ceballos. SW provided pt with list of private duty home aides. Plan: home with home health CLAU Hernández
--- NOTE | 2022-12-15 11:21 | CASEMGMT ---
Addendum entered by Efra Harvey 12/15/22 11:52: VM received from Joanne @ [facility]. They are able to accept pt w/SOC slated for Sunday. Pt made aware and states is agreeable to this and is very appreciative and thankful. Questions answered. Pt denies having further questions/concerns or discharge needs. Original Note: VINEET BRODY NOTE: VINEET BRODY informed pt would like [facility]. Order placed for PT/OT. Call to Joanne @ [facility] and referral made. Awaiting response. She was made aware pt med ready for discharge today. Sofi JIMENEZ RN CM
[2022-12-15 11:26] VITALS: BP 103/64; PULSE 70; RESP 18; TEMP 36.6; O2SAT 92
--- NOTE | 2022-12-15 11:52 | DCINST_ITS ---
Discharge Instructions Diet Discharge Diet: No restrictions Activity Discharge Activity: Return to Normal Activity Weight Bearing Status: Weight bearing as tolerated Follow Up Care Test Results: Test results from this visit will be discussed in further detail at your follow- up appointment, if applicable. Discharge Plan Admission Admit Date/Time: 12/14/22 13:49 Primary Reason for Your Visit: debilty Attending Provider: Jona Harrison Primary Care Provider: Bev Valadez Consulting Providers: Melony Messina Discharge Orders/Prescriptions Prescriptions: Continued lamotrigine 25 mg tablet 25 mg PO DAILY ropinirole 0.5 mg tablet 1 mg PO QHS Rx Instructions: administer 1-3 hours before bedtime sertraline 100 mg tablet 100 mg PO DAILY pantoprazole 40 MG tablet 40 mg PO DAILY rivaroxaban 15 mg tablet 15 mg PO DAILY Qty: 30 11RF propranolol 10 mg tablet 10 mg PO BID Qty: 60 11RF propafenone 150 mg tablet 150 mg PO TID Qty: 270 3RF Rx Instructions: space evenly during waking hours furosemide 40 mg tablet 40 mg PO DAILY Qty: 90 3RF Referrals / Follow Up: Bev Valadez DO [Primary Care Provider] - Within 2 Weeks Disposition Disposition (needs filled in before D/C Order can be placed): Home Health Service
--- NOTE | 2022-12-15 11:54 | PCM.DC.SUM ---
Providers Date of Admission: 12/14/22 Date of Discharge: 12/15/22 Primary Care Physician: Dr. Bev Valadez DO Reason For Visit: INTRACTABLE BACK PAIN AND DEBILITY Diagnosis Discharge Diagnosis (1) Intractable back pain: Status: Acute Code(s): M54.9 - Dorsalgia, unspecified (2) Thoracic compression fracture: Status: Acute Code(s): S22.000A - Wedge compression fracture of unspecified thoracic vertebra, initial encounter for closed fracture (3) Lumbar compression fracture: Status: Acute Code(s): S32.000A - Wedge compression fracture of unspecified lumbar vertebra, initial encounter for closed fracture (4) Debility: Status: Acute Code(s): R53.81 - Other malaise (5) Anxiety: Status: Acute Code(s): F41.9 - Anxiety disorder, unspecified Plan 1. Acute debility #2 chronic compression fractures of the thoracic and lumbar spine #3 osteoporosis #4 degenerative disc disease of the lumbar and thoracic spine #5 chronic anxiety #6 paroxysmal A-fib #7 chronic hypercoagulable state secondary to #6 #8 bipolar disorder Medications at Discharge Home Medications lamotrigine 25 mg tablet 25 mg PO DAILY 02/13/19 pantoprazole 40 mg tablet,delayed release 40 mg PO DAILY 06/02/20 ropinirole 0.5 mg tablet 1 mg PO QHS 11/23/20 rivaroxaban 15 mg tablet 15 mg PO DAILY #30 tabs 03/16/22 sertraline 100 mg tablet 100 mg PO DAILY 04/04/22 propranolol 10 mg tablet 10 mg PO BID #60 tabs 10/16/22 propafenone 150 mg tablet 150 mg PO TID #270 tabs 10/27/22 furosemide 40 mg tablet 40 mg PO DAILY #90 tabs 12/05/22 Hospital Course Operations None Procedures None Summary of Care Provided Minutes Spent on Discharge: 30 Hospital Course: This 82-year-old white female was seen in the emergency room at [facility] with a chief complaint of generalized weakness, she lives by herself at home and had slid out of her wheelchair the day before. Patient requesting services for placement in a custodial facility. Patient was placed in observation status on Medr 3 and seen by physical therapy, patient did actually well with physical therapy and the patient changed her mind about going to a custodial facility. CT of the thoracic spine showed multiple old compression fractures. On 12/15/2022, patient was seen and examined: On examination she appeared older than her stated age, she does not appear to be in any distress. Vital signs as documented. Skin warm and dry and without overt rashes. Neck without JVD, thyroid appears normal, trachea is midline, neck is supple. Lungs clear, normal air movement was noted. Heart exam notable for regular rhythm, normal sounds and absence of murmurs, rubs or gallops. Abdomen unremarkable and without evidence of organomegaly, masses, or abdominal aortic enlargement, bowel sounds are present in all 4 quadrants, no abdominal tenderness was noted. Extremities nonedematous, no cyanosis was noted, no clubbing was noted. Neuro: Cranial nerves II through XII are grossly intact, no focal motor deficits were noted, sensation to light touch and pinprick is intact, motor exam 5/5 throughout. Psych: Patient is alert and oriented x3, she appeared nervous Patient appears stable for discharge on 12/15/2022, she was set up for home health Weight / BMI Weight Weight: 80.1 kg Body Mass Index (BMI) 31.2 ABG / Lab / Microbiology Data Result Diagrams: 12/14/22 10:25 12/15/22 03:48 Laboratory: Laboratory Results - last 24 hr 12/14/22 13:00: Troponin I High Sens 8 12/14/22 17:00: Vitamin D 25-Hydroxy 31.5 12/15/22 03:48: Sodium 138, Potassium 3.6, Chloride 104, Carbon Dioxide 30.0, Anion Gap 4 L, BUN 23 H, Creatinine 1.42 H, Estim Creat Clear Calc 26.14, Est GFR (MDRD) Af Amer 46 L, Est GFR (MDRD) Non-Af 38 L, BUN/Creatinine Ratio 16.2, Glucose 102, Calcium 8.9, Phosphorus 4.1, Magnesium 2.7 H, TSH 1.32 Radiography Diagnostic Testing: Radiology Impression Chest/Abdomen/Pelvis CTA 12/14/22 10:21 IMPRESSION: 1. No abdominal aortic dissection or aneurysmal dilatation 2. Colonic diverticulosis 3. Chronic and previously treated compression deformities of the L1 and L2 vertebral bodies with kyphoplasty material. No visualized acute fractures or new compression deformities. Electronically Signed: Rudy Torres MD at 12:07 EDT Reading Location ID and State: [id number] [facility] , Service support , Thoracic Spine CT 12/14/22 10:22 IMPRESSION: 1. Multiple chronic compression deformities of T7, T8, T9, and L1 and L2. 2. No visualized new vertebral body fracture or compression deformity. 3. Multilevel degenerative changes Electronically Signed: Rudy Torres MD at 11:55 EDT Reading Location ID and State: [id number] [facility] , Service support , D/C Instructions Discharge Diet: No restrictions Weight Bearing Status: Weight bearing as tolerated Meaningful Use Info Meaningful Use Diagnoses (Choose all that apply): None applicable Discharge Plan Admission Admit Date/Time: 12/14/22 13:49 Primary Reason for Your Visit: debilty Attending Provider: Jona Harrison Primary Care Provider: Bev Valadez Consulting Providers: Melony Messina Discharge Orders/Prescriptions Prescriptions: Continued lamotrigine 25 mg tablet 25 mg PO DAILY ropinirole 0.5 mg tablet 1 mg PO QHS Rx Instructions: administer 1-3 hours before bedtime sertraline 100 mg tablet 100 mg PO DAILY pantoprazole 40 MG tablet 40 mg PO DAILY rivaroxaban 15 mg tablet 15 mg PO DAILY Qty: 30 11RF propranolol 10 mg tablet 10 mg PO BID Qty: 60 11RF propafenone 150 mg tablet 150 mg PO TID Qty: 270 3RF Rx Instructions: space evenly during waking hours furosemide 40 mg tablet 40 mg PO DAILY Qty: 90 3RF Referrals / Follow Up: Bev Valadez DO [Primary Care Provider] - Within 2 Weeks Disposition Disposition (needs filled in before D/C Order can be placed): Home Health Service Charges/Coding Visit Charges Inpatient E&M: [id number] Disch Hosp
--- NOTE | 2022-12-15 12:05 | PHA.DC.MR ---
Pharmacy Service has performed discharge medication reconciliation for this patient. The patient's discharge medication list was reviewed for discrepancies and discrepancies were resolved. Home Medications lamotrigine 25 mg tablet 25 mg PO DAILY 02/13/19 pantoprazole 40 mg tablet,delayed release 40 mg PO DAILY 06/02/20 ropinirole 0.5 mg tablet 1 mg PO QHS 11/23/20 rivaroxaban 15 mg tablet 15 mg PO DAILY #30 tabs 03/16/22 sertraline 100 mg tablet 100 mg PO DAILY 04/04/22 propranolol 10 mg tablet 10 mg PO BID #60 tabs 10/16/22 propafenone 150 mg tablet 150 mg PO TID #270 tabs 10/27/22 furosemide 40 mg tablet 40 mg PO DAILY #90 tabs 12/05/22
[2022-12-15 14:33] VITALS: BP 107/61; PULSE 70; RESP 20; TEMP 36.8; O2SAT 94
[2022-12-15] MEDS: Rivaroxaban 15 MG Tablet PO (17:28)
== END 2022-12-15 18:01 | disposition home health service (06) ==
LOC: ED 13:44 → MS3 14:25
PROVIDERS: Admitting Provider Internal Medicine; Emergency Provider Emergency Medicine; PCP Internal Medicine; Visit Provider Internal Medicine
DX: M80.08XD Age-related osteoporosis with current pathological fracture, vertebra(e), subsequent encounter for fracture with routine healing (principal); G20 Parkinson's disease; F02.80 Dementia in other diseases classified elsewhere, unspecified severity, without behavioral disturbance, psychotic disturbance, mood disturbance, and anxiety; F31.9 Bipolar disorder, unspecified; I48.0 Paroxysmal atrial fibrillation; D68.69 Other thrombophilia; R53.81 Other malaise; I10 Essential (primary) hypertension; E87.1 Hypo-osmolality and hyponatremia; F41.9 Anxiety disorder, unspecified; Z99.3 Dependence on wheelchair; Z79.01 Long term (current) use of anticoagulants; Z79.899 Other long term (current) drug therapy; K21.9 Gastro-esophageal reflux disease without esophagitis; E66.9 Obesity, unspecified; Z68.31 Body mass index [BMI] 31.0-31.9, adult; G25.81 Restless legs syndrome; M51.36 Other intervertebral disc degeneration, lumbar region; M51.34 Other intervertebral disc degeneration, thoracic region
CPT/HCPCS: 36415; 71275; 72128; 74174; 80048; 82306; 83735; 83880; 84100; 84443; 84484; 85025; 93005; 94668; 96374; 96375; 97162; 97166; 97802; 99221; 99285; Q9967; A4216; G0378

== ENCOUNTER 2022-12-20 09:51 | Emergency (ER) | payer MEDICARE, OTHER, SELFPAY ==
[2022-12-20 09:51] VITALS: BP 127/78; BP 137/78; PULSE 72; PULSE 82; RESP 14; RESP 16; TEMP 36.4; O2SAT 96; O2SAT 97; BMI 30.4
--- NOTE | 2022-12-20 10:18 | RAD_ITS ---
STUDY: X-RAY CHEST REASON FOR EXAM: Female, 82 years old. Chest pain, rales right lower base TECHNIQUE: AP and lateral views of the chest. COMPARISON: Comparison is made with prior study dated October 20, 2020. FINDINGS: Surgical clips are seen in the left axilla. A loop recorder device is seen overlying the left lateral hemithorax. The lungs are clear and expanded. There is no demonstrated pleural abnormality. Normal size heart. Normal mediastinum and krissy. Normal visualized pulmonary arteries. There is atherosclerotic calcification of the aortic arch with tortuosity. There are diffuse degenerative changes of the visualized thoracic spine. Prior vertebroplasty of the T12 and L1 vertebrae. Normal visualized ribs, clavicles, and shoulders. Hiatal hernia. RAD/Chest PA and Lateral IMPRESSION: No acute abnormality is seen. Electronically Signed: Raul Dailey MD at 11:20 EDT ,
--- NOTE | 2022-12-20 10:27 | EX.ED.DYSGE1 ---
HPI History of Present Illness Chief Complaint: Other, Pain/Inj Detail of Chief Complaint: Pain in torso since fall documented December 14, 2022. Informant: patient and family Onset/Context/Timing Onset: Days (According to family patient was not seen last week was seen the week prior.) Context: Sudden Onset Timing: Continuous Quality: Pain Location: Torso Current Severity: Mild Maximum Severity: Severe Worsened by: Attempt to rise from supine position or sitting position, blowing her nose Relieved by: Nothing Associated Symptoms Associated Symptoms: No other symptoms Narrative Narrative: Patient is an 82-year-old woman who was seen on December 14 for back pain. It was determined that she had old L1 and L2 compression fractures status post kyphoplasty. Patient is insistent she was seen a week prior. Patient states moving her arms attempting to rise from supine positioning or any type of movement causes her pain in her torso anteriorly and posteriorly. She states she has pain with deep breathing. There is no history of PE or DVT. Patient did have a CTA because there was concern of dissection when she was seen. It was discovered that she had the prior compression fractions and no other abnormality was noted. Patient is taken Tylenol with minimal effect. Patient has not applied any ice or heat to the areas. Patient does live alone. She did contact her primary care physician who recommended she come to the emergency department She denies dysuria, frequency, urgency or hematuria. She denies nausea, vomiting or diarrhea. She denies change in her bowels. She denies cough or shortness of breath. Prior similar symptoms: Yes Recent Illness/Hospitalization: Yes [facility] Medical History Anemia Anxiety Atrial fibrillation Bipolar disorder C. difficile diarrhea Cancer Cephalalgia Chronic use of benzodiazepine for therapeutic purpose Compression fracture of L1 lumbar vertebra Dehydration Dementia Depression Diverticulitis large intestine Dysphagia Essential hypertension Fall GERD (gastroesophageal reflux disease) HAP (hospital-acquired pneumonia) History of breast cancer History of CVA (cerebrovascular accident) Hypertension Hypokalemia Hypomagnesemia Hypophosphatemia Intestinal malabsorption, unspecified Iron deficiency Iron deficiency anemia Leukocytosis Nausea and vomiting Osteoporosis Parkinsons disease Paroxysmal A-fib Restless leg Sepsis Severe sepsis Syncope Vertigo Vomiting Home Medications lamotrigine 25 mg tablet 25 mg PO DAILY 02/13/19 [History Last Taken Unknown] pantoprazole 40 mg tablet,delayed release 40 mg PO DAILY 06/02/20 [History Last Taken Unknown] ropinirole 0.5 mg tablet 1 mg PO QHS 11/23/20 [History Last Taken Unknown] rivaroxaban 15 mg tablet 15 mg PO DAILY #30 tabs 03/16/22 [Rx Last Taken Unknown] sertraline 100 mg tablet 100 mg PO DAILY 04/04/22 [History Last Taken Unknown] propranolol 10 mg tablet 10 mg PO BID #60 tabs 10/16/22 [Rx Last Taken Unknown] propafenone 150 mg tablet 150 mg PO TID #270 tabs 10/27/22 [Rx Last Taken Unknown] furosemide 40 mg tablet 40 mg PO DAILY #90 tabs 12/05/22 [Rx Last Taken Unknown] hydrocodone-acetaminophen 5-325mg 5mg-325mg 1 tab PO Q6H PRN PRN Pain 5 days #20 TABLETS 12/20/22 [Rx Last Taken Unknown] Allergy/AdvReac Type Severity Reaction Status Date / Time clonazepam Allergy Intermediate Other Verified 12/20/22 09:53 tramadol Allergy Intermediate Other Verified 12/20/22 09:53 meclizine [From Antivert] Allergy Unknown Unknown Verified 12/20/22 09:53 atorvastatin calcium Allergy Unknown Verified 12/20/22 09:53 [From Lipitor] Penicillins Allergy Hives Verified 12/20/22 09:53 propoxyphene HCl Allergy Other Verified 12/20/22 09:53 [From Darvon] Sulfa (Sulfonamide Allergy Unknown Verified 12/20/22 09:53 Antibiotics) codeine AdvReac Upset Verified 12/20/22 09:53 Stomach hydrocodone AdvReac Upset Verified 12/20/22 09:53 Stomach iron AdvReac Vomiting Verified 12/20/22 09:53 oxycodone [From Percocet] AdvReac Vomiting Verified 12/20/22 09:53 Family History Other Breast cancer Hypertension Surgical History Hip fracture, right History of appendectomy History of bilateral mastectomy History of cholecystectomy History of hysterectomy History of mastectomy Social History household members: none current occupational status: retired Smoking Status: Never smoker alcohol intake: never substance use type: does not use what type of physical activity do you participate in: none seatbelt use: always do you feel safe at home: Yes additional social history: recently ROS ROS ED Constitutional Constitutional ED: Denies chills, fever(s), subjective, sweats or weight loss Eyes Eyes: Denies blurry vision, change in vision or diplopia ENT ENT ED: Denies ear pain, rhinorrhea or sore throat Cardiovascular Cardiovascular: Reports chest pain; Denies orthopnea, palpitations, paroxysmal nocturnal dyspnea or racing heartbeat Respiratory/Chest Respiratory/Chest: Denies cough, dyspnea, dyspnea on exertion, orthopnea or paroxysmal nocturnal dyspnea Gastrointestinal Gastrointestinal: Denies abdominal pain, diarrhea, melena, nausea or vomiting Genitourinary Genitourinary ED: Denies dysuria, hematuria or urinary frequency Musculoskeletal Musculoskeletal: Denies arthralgias, back pain, myalgias or neck pain Integumentary Denies rash Neurologic Neurologic: Denies headache(s), paresthesias or weakness Endocrine Endocrinology: Denies cold intolerance or heat intolerance Hematologic/Lymphatic Hematologic/Lymphatic: Reports systems reviewed and no addt'l complaints, except as documented EXAM Physical Exam Const Vital Signs: 12/20/22 09:51 Temperature 97.6 F L Temperature Source Temporal Pulse Rate 72 Respiratory Rate 14 Blood Pressure 127/78 H Blood Pressure Mean 94 Pulse Ox 96 Oxygen Delivery Method Room Air Positive well nourished and well developed General Appearance ED: well developed and NAD; Negative for cyanotic, diaphoretic or pallor HEENT Reports moist mucous membranes HEENT Narrative: Head is atraumatic normocephalic. There is no clinical findings of basilar skull skull fracture or any trauma. Ears are normal. Nares patent. Teeth are normal. Posterior pharynx out erythema or exudate. Uvula is midline. There is no deviation tongue with trusion. Eyes PERRL and EOMs intact bilaterally General Eye ED: Negative for pale conjunctiva or scleral icterus Neck no lymphadenopathy, supple and no JVD Chest Wall inspection of chest normal and palpation of chest normal Resp normal respiratory effort Resp Narrative: Patient complains of pain out of proportion to tactile stimulus with palpation of her chest and back. Auscultation: rales right base Cardio regular rate, regular rhythm, S1 normal heart sound, S2 normal heart sound and no murmurs GI normal to inspection, nondistended, normoactive bowel sounds, non-tender, non-distended and no masses; Negative for hepatosplenomegaly Back/Spine no CVA tenderness Back/Spine Narrative: Inspection of the back is unremarkable. Patient has painful patient over the right lower ribs posteriorly. Extremity normal to inspection Neuro oriented x3, CN's II-XII intact bilaterally and no sensory deficits noted Sensorium / Orientation: alert Psych Mood & Affect: depressed and anxious Skin no rashes or lesions noted and no wounds General Skin Exam: Negative for elasticity normal, jaundice or pallor MDM MDM MDM Narrative Medical decision making narrative: X-rays obtained because of rales noted at the right base to evaluate for atelectasis versus pneumonia versus other cause. Rib details were not obtained since patient had a CT of the chest, abdomen and pelvis on the that revealed no fractured ribs. Patient was medicated with morphine for her pain. Suspect this is all musculoskeletal. History & Record Review Additional record(s) reviewed:: Prior outpatient record and Prior labs Lab Data Labs: Laboratory Results - last 24 hr 12/20/22 12/20/22 10:50 10:50 WBC 8.3 RBC 4.30 Hgb 12.3 Hct 37.8 MCV 87.9 MCH 28.6 MCHC 32.5 RDW Std Deviation 48.6 H RDW Coeff of Junaid 15.1 H Plt Count 247 MPV 9.0 Immature Gran % (Auto) 0.200 Neut % (Auto) 58.3 Lymph % (Auto) 27.6 Humphreys % (Auto) 9.1 Eos % (Auto) 4.4 Baso % (Auto) 0.4 Absolute Neuts (auto) 4.9 Absolute Lymphs (auto) 2.30 Nucleated RBC % 0 Sodium 135 L Potassium 4.3 Chloride 101 Carbon Dioxide 29.0 Anion Gap 5 BUN 17 Creatinine 1.32 H Estim Creat Clear Calc 28.12 Est GFR (MDRD) Af Amer 50 L Est GFR (MDRD) Non-Af 41 L BUN/Creatinine Ratio 12.9 Glucose 101 Calcium 9.6 Radiography Chest X-Ray - ED: 2 View and Read by ED Physician (Panel reviewed interpreted by me at 1112 as negative for any pulmonary pathology. Lung parenchyma is unremarkable. Cardiac silhouette and size unremarkable. Patient does have compression fraction of the thoracic/dorsal spine. We will need to review prior images determine if this is new or old.) CTA PE Study: - (The obtained on December 14 was reviewed. The compression fracture is old.) Diagnostic Testing: Clinical Impression(s) from Imaging Studies Chest X-Ray 12/20/22 10:18 IMPRESSION: No acute abnormality is seen. Electronically Signed: Raul Dailey MD at 11:20 EDT , Treatment and Re-Evaluation :: Patient was reassessed at approximately 1132. Patient reported marked improvement after IV morphine. Patient was referred to Dr. Chow for pain management. She was informed of x-ray results and laboratory results. She was discharged with prescription for pain medicine. Discharge Plan Triage Chief Complaint: Other, Pain/Inj ED Provider: Jonathan Dawn Dx/Rx/DC Orders Clinical Impression: Acute bilateral thoracic back pain, Anterior chest wall pain, Closed compression fracture of thoracic vertebra Prescriptions: New hydrocodone-acetaminophen [hydrocodone-acetaminophen] 5-325 mg tablet 1 tab PO Q6H PRN PRN (Reason: Pain) 5 Days Qty: 20 0RF No Action lamotrigine 25 mg tablet 25 mg PO DAILY ropinirole 0.5 mg tablet 1 mg PO QHS Rx Instructions: administer 1-3 hours before bedtime sertraline 100 mg tablet 100 mg PO DAILY pantoprazole 40 MG tablet 40 mg PO DAILY rivaroxaban 15 mg tablet 15 mg PO DAILY Qty: 30 11RF propranolol 10 mg tablet 10 mg PO BID Qty: 60 11RF propafenone 150 mg tablet 150 mg PO TID Qty: 270 3RF Rx Instructions: space evenly during waking hours furosemide 40 mg tablet 40 mg PO DAILY Qty: 90 3RF Primary Care Provider: Bev Valadez Referrals: Merna Andrea MD [Med Staff - Active Staff] - As soon as possible Bev Valadez DO [Primary Care Provider] - 1 Week if not improving Disposition Disposition: Home, Self Care
[2022-12-20] MEDS: Morphine 4 MG/ML Syringe IV (10:51)
[2022-12-20] MEDS: Ondansetron 4 MG/2 ML Vial IV (10:51)
[2022-12-20 10:58] LABS: Absolute Neutrophil Count 4.9 X10^3/uL (2.0-7.7); Basophil# 0.03 X10^3/uL; Basophil% 0.4 % (0-1); Eosinophil# 0.37 X10^3/uL; Eosinophils% 4.4 % (0-5); Hematocrit 37.8 % (37-47); Hemoglobin 12.3 g/dL (12.0-15.0); Lymphocyte % 27.6 % (19-41); Mean Corp Hgb Conc 32.5 g/dL (32-36); Mean Corpuscular Hgb 28.6 pg (27.0-32.0); Mean Corpuscular Volume 87.9 fL (81-99); Monocyte# 0.76 X10^3/uL; Monocyte% 9.1 % (0-10); NRBC Flagged by Analyzer 0 % (0-5); Neutrophil # 4.85 X10^3/uL (2.7-7.7); Neutrophil % 58.3 % (47-70); Platelet Count 247 K/mm3 (150-450); RBC Distribution Width CV 15.1 % (11.6-14.6); RBC Distribution Width SD 48.6 fl (35.1-43.9); White Blood Count 8.3 K/mm3 (4.4-11.0)
[2022-12-20 11:13] LABS: Anion Gap 5 (5-15); BUN 17 mg/dL (7-18); BUN/Creat Ratio 12.9 RATIO (10-20); Calcium,Total 9.6 mg/dL (8.5-10.1); Chloride 101 mmol/L (98-107); Creatinine, Serum 1.32 mg/dL (0.55-1.02); EST Glomerular Filtration Rate 41 mL/min (>60); Est Glom Filt Rate - Afr Amer 50 mL/min (>60); Estimated Creatinine Clearance 28.12 ml/min; Glucose 101 mg/dL (74-106); Potassium 4.3 mmol/L (3.5-5.1); Sodium Level 135 mmol/L (136-145)
[2022-12-20 11:51] VITALS: BP 129/75; PULSE 74; RESP 18; O2SAT 95
[2022-12-20 12:04] VITALS: BP 127/74; PULSE 76; RESP 18; TEMP 36.6; O2SAT 98
== END 2022-12-20 12:40 | disposition home or self-care (01) ==
PROVIDERS: Emergency Provider Emergency Medicine; PCP Internal Medicine; Visit Provider Emergency Medicine
DX: S22.000A Wedge compression fracture of unspecified thoracic vertebra, initial encounter for closed fracture (principal); R07.89 Other chest pain; I10 Essential (primary) hypertension; X58.XXXA Exposure to other specified factors, initial encounter
CPT/HCPCS: 71046; 80048; 85025; 96374; 96375; 99283; J7030; A4216; J2405

== ENCOUNTER → 2022-12-22 | Outpatient (CLI) | payer MEDICARE, OTHER, SELFPAY ==
[2022-12-22 12:50] LABS: Anion Gap 5 (5-15); BUN 21 mg/dL (7-18); BUN/Creat Ratio 13.9 RATIO (10-20); Calcium,Total 9.1 mg/dL (8.5-10.1); Chloride 104 mmol/L (98-107); Creatinine, Serum 1.51 mg/dL (0.55-1.02); EST Glomerular Filtration Rate 35 mL/min (>60); Est Glom Filt Rate - Afr Amer 43 mL/min (>60); Glucose 110 mg/dL (74-106); Potassium 4.6 mmol/L (3.5-5.1); Sodium Level 139 mmol/L (136-145)
== END | disposition home or self-care (01) ==
LOC: LAB 11:43
PROVIDERS: PCP Internal Medicine; Referring Provider Nurse Practitioner Family; Visit Provider Nurse Practitioner Family
DX: R60.9 Edema, unspecified (principal)
CPT/HCPCS: 36415; 80048

== ENCOUNTER → 2023-01-31 | Outpatient (CLI) | payer MEDICARE, OTHER, SELFPAY ==
--- NOTE | 2023-01-31 16:44 | RAD_ITS ---
STUDY: X-RAY - UNILATERAL RIBS ( RIGHT ) REASON FOR EXAM: Female, 82 years old. Right-sided rib pain. TECHNIQUE: 4 view(s) of the ribs. COMPARISON: Chest, October 20, 2020. FINDINGS: Normal visualized ribs without a demonstrated fracture. The visualized lung is clear and expanded. Subtle finding is the evidence of vertebral augmentation at the L1 and L2 levels. RAD/Ribs Unil 2V No CXR IMPRESSION: Normal x-ray examination of the right ribs. Electronically Signed: Kevan Harman DO at 16:54 EDT ,
== END | disposition home or self-care (01) ==
LOC: MTRAD 16:38
PROVIDERS: PCP Internal Medicine; Referring Provider Internal Medicine; Visit Provider Internal Medicine
DX: R07.81 Pleurodynia (principal)
CPT/HCPCS: 71100

== ENCOUNTER → 2023-09-17 | Outpatient (CLI) | payer MEDICARE, OTHER, SELFPAY ==
--- NOTE | 2023-09-17 14:16 | RAD_ITS ---
STUDY: X-RAY - RIGHT WRIST REASON FOR EXAM: Female, 83 years old. Pain following injury. TECHNIQUE: 3 view(s) of the wrist were obtained. COMPARISON: None. FINDINGS: There is demineralization of the radius and ulna. Old avulsion fracture of the ulnar styloid. Normal radiocarpal articulation. Normal distal radioulnar articulation. Normal carpal bones. Degenerative changes of the carpal bones. There is degenerative arthrosis of the carpometacarpal articulation of the thumb. Normal second through fifth carpometacarpal articulations. Normal visualized metacarpal bones. The soft tissue structures are unremarkable. RAD/Wrist min 3 Views IMPRESSION: No acute abnormality is seen. Electronically Signed: Raul Dailey MD at 15:15 EST ,
--- NOTE | 2023-09-17 14:16 | RAD_ITS ---
STUDY: X-RAY - RIGHT HAND REASON FOR EXAM: Female, 83 years old. Pain TECHNIQUE: 2 view(s) of the hand. COMPARISON: None. FINDINGS: Normal radiocarpal articulation. Normal distal radioulnar joint. Old avulsion fracture of the ulnar styloid. Normal visualized carpal bones. Normal carpal articulations Normal carpometacarpal articulation of the thumb. Normal second through fifth carpometacarpal joints. Normal metacarpi. Normal metacarpophalangeal joint of the thumb. Normal interphalangeal joint of the thumb. Normal proximal and distal phalanges of the thumb. Normal metacarpophalangeal joints of the second through fifth fingers. There is a mild degree of diffuse articular joint space narrowing of the proximal and distal interphalangeal joints of the second through fifth fingers, but without erosive changes or periarticular soft tissue swelling. Normal phalanges of the second through fifth fingers. The soft tissue structures are unremarkable. 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 No acute fracture is seen. Electronically Signed: Raul Dailey MD at 15:16 EST ,
== END | disposition home or self-care (01) ==
PROVIDERS: PCP Internal Medicine; Referring Provider Physician Assistant; Visit Provider Physician Assistant
DX: M79.641 Pain in right hand (principal); M25.531 Pain in right wrist
CPT/HCPCS: 73110; 73120

== ENCOUNTER → 2023-09-21 | Outpatient (CLI) | payer MEDICARE, OTHER, SELFPAY ==
--- NOTE | 2023-09-21 11:37 | US_ITS ---
STUDY: RENAL ULTRASOUND - COMPLETE REASON FOR EXAM: Female, 83 years old. UTI TECHNIQUE: Ultrasound evaluation of the kidneys was performed with real-time and static fontana-scale imaging. COMPARISON: Comparison is made with prior study dated July 25, 2011. FINDINGS: RIGHT KIDNEY: with mild renal atrophy. The right kidney measures 7.5 cm x 4.5 sign by 4 cm. There is a normal cortex of the right kidney. The renal cortex measures 1.0 cm. There is a 2 cm x 2.3 cm x 2.8 cm cyst. There are no right renal calculi. There is no right hydronephrosis. DISTAL RIGHT URETER: There is non-visualization of the distal right ureter. There is no demonstrated right ureterovesical junction calculus. There is a visualized right ureteral jet. LEFT KIDNEY: Normal location of the left kidney, which is normal in size. The left kidney measures 9.6 cm x 4.5 cm x 4.4 cm. There is a normal cortex of the left kidney. The renal cortex measures 1.4 cm. There is no left renal mass or cyst. There are no left renal calculi. There is no left hydronephrosis. DISTAL LEFT URETER: There is non-visualization of the distal left ureter. There is no demonstrated left ureterovesical junction calculus. There is a visualized left ureteral jet. BLADDER: The distended urinary bladder has a volume of 49 ml. There is a normal wall thickness of the distended urinary bladder. There is no demonstrated mass within the urinary bladder. There are no demonstrated bladder calculi. US/Kidney and Bladder IMPRESSION: Mild degree of right renal atrophy. Small right renal cyst. Electronically Signed: Raul Dailey MD at 14:59 EST ,
== END | disposition home or self-care (01) ==
LOC: US 11:31
PROVIDERS: PCP Internal Medicine; Referring Provider Urology; Visit Provider Urology
DX: N39.0 Urinary tract infection, site not specified (principal)
CPT/HCPCS: 76770

== ENCOUNTER → 2023-10-10 | Outpatient (CLI) | payer MEDICARE, OTHER, SELFPAY ==
[2023-10-10 10:07] LABS: Absolute Lymphocyte Count 1.98 X10^3/uL (0.83-4.51); Absolute Neutrophil Count 7.6 X10^3/uL (2.0-7.7); Basophil# 0.02 X10^3/uL; Basophil% 0.2 % (0-1); Eosinophil# 0.15 X10^3/uL; Eosinophils% 1.4 % (0-5); Hematocrit 40.9 % (37-47); Hemoglobin 13.3 g/dL (12.0-15.0); Lymphocyte # 1.98 X10^3/ul (0.83-4.51); Lymphocyte % 18.4 % (19-41); Mean Corp Hgb Conc 32.5 g/dL (32-36); Mean Corpuscular Hgb 29.6 pg (27.0-32.0); Mean Corpuscular Volume 90.9 fL (81-99); Mean Platelet Vol. 9.8 fl (6.2-12.0); Monocyte# 1.01 X10^3/uL; Monocyte% 9.4 % (0-10); NRBC Flagged by Analyzer 0 % (0-5); Neutrophil # 7.57 X10^3/uL (2.7-7.7); Neutrophil % 70.2 % (47-70); Platelet Count 206 K/mm3 (150-450); RBC Distribution Width CV 14.3 % (11.6-14.6); RBC Distribution Width SD 47.6 fl (35.1-43.9); White Blood Count 10.8 K/mm3 (4.4-11.0)
[2023-10-10 10:33] LABS: BNP,B-Type NATRIURETIC PEPTIDE 224.4 pg/mL (0-100)
[2023-10-10 10:58] LABS: ALB/GLOB Ratio 0.8 RATIO (0.9-2.4); AST(SGOT) 7 U/L (15-37); Alanine Aminotransfer ALT/SGPT 15 U/L (13-56); Albumin, Serum 3.3 g/dL (3.2-5.0); Alkaline Phosphatase 66 U/L (45-117); Anion Gap 4 (5-15); BUN 12 mg/dL (7-18); BUN/Creat Ratio 12.4 RATIO (10-20); Calcium,Total 9.2 mg/dL (8.5-10.1); Chloride 106 mmol/L (98-107); Creatinine, Serum 0.96 mg/dL (0.55-1.02); EST Glomerular Filtration Rate 59 mL/min (>60); Est Glom Filt Rate - Afr Amer 71 mL/min (>60); Globulin 3.9 g/dL (2.2-4.2); Glucose 112 mg/dL (74-106); Potassium 3.6 mmol/L (3.5-5.1); Protein, Total 7.2 g/dL (6.4-8.2); Sodium Level 138 mmol/L (136-145)
== END | disposition home or self-care (01) ==
PROVIDERS: PCP Internal Medicine; Referring Provider Physician Assistant Medical; Visit Provider Physician Assistant Medical
DX: I10 Essential (primary) hypertension (principal); R60.9 Edema, unspecified; R06.09 Other forms of dyspnea
CPT/HCPCS: 36415; 80053; 83880; 85025

== ENCOUNTER → 2023-11-09 | Outpatient (CLI) | payer MEDICARE, OTHER, SELFPAY ==
--- NOTE | 2023-11-09 12:54 | ECHOD_ITS ---
Reason For Study: MARCH, Edema Procedure This was a 2D Doppler, Color Flow transthoracic echocardiogram. Exam performed in department. Left Ventricle Normal LV size. Left ventricular systolic function is normal. The estimated ejection fraction is 65 %. Stage 1 diastolic dysfunction. No regional wall motion abnormalities noted. Right Ventricle Normal RV size. Normal systolic function. Atria The left atrium is mildly enlarged. Normal right atrium. Mitral Valve There is moderate mitral annular calcification. There is Severe focal posterior mitral annular calcification. Mild (1+) eccentric mitral valve insufficiency. Tricuspid Valve Normal tricuspid valve. Mild (1+) tricuspid valve insufficiency. Pulmonary artery systolic pressure is 28 mmHg. Aortic Valve Trisinus/trileaflet aortic valve. Pulmonic Valve Normal pulmonic valve. Great Vessels Normal aortic root. The pulmonary artery is normal size. Inferior vena cava collapse with sniff. Pericardium/Pleural No pericardial effusion. MMode/2D Measurements & Calculations LVIDd: 4.2 cm IVSd: 0.98 cm Ao root diam: 3.1 cm LVIDs: 2.5 cm LVPWd: 0.95 cm LA dimension: 4.1 cm RVDd: 3.1 cm FS: 40.5 % LAV(MOD-bp): 70.5 ml LA A4 area: 24.7 cm2 RA A4 area: 16.3 cm2 LAV(MOD-bp) Indexed: 39.1 ml/m2 LAV(MOD-sp2): 60.4 ml LAV(MOD-sp4): 82.5 ml TAPSE: 1.3 cm Time Measurements MV dec time: 0.49 sec Doppler Measurements & Calculations MV E max victoriano: 92.6 cm/sec Lat Peak E' Victoriano: 3.5 cm/sec Med Peak E' Victoriano: 3.7 cm/sec MV A max victoriano: 131.8 cm/sec E/E' lat: 26.4 E/E' med: 24.8 MV E/A: 0.70 MV V2 max: 165.3 cm/sec MV P1/2t max victoriano: 122.4 cm/sec Ao V2 max: 100.7 cm/sec MV max P.9 mmHg MV P1/2t: 151.6 msec Ao max P.1 mmHg MV V2 mean: 89.2 cm/sec Ao V2 mean: 73.5 cm/sec MV mean P.7 mmHg MV dec slope: 236.5 cm/sec2 Ao mean P.4 mmHg MV V2 VTI: 46.7 cm MVA(P1/2t): 1.5 cm2 Ao V2 VTI: 23.2 cm LV V1 max: 83.6 cm/sec MR max victoriano: 453.5 cm/sec PA V2 max: 94.8 cm/sec LV V1 max P.8 mmHg MR max P.3 mmHg TR max victoriano: 247.2 cm/sec TR max P.4 mmHg ECHO/Echo Complete Interpretation Summary Normal LV size. Left ventricular systolic function is normal. The estimated ejection fraction is 65 %. Stage 1 diastolic dysfunction. There is Severe focal posterior mitral annular calcification. Ordering Physician: Khadra Waldron Referring Physician: Bev Valadez M.D. Performed By: Vel Rand RCS
== END | disposition home or self-care (01) ==
PROVIDERS: PCP Internal Medicine; Referring Provider Physician Assistant Medical; Visit Provider Physician Assistant Medical
DX: R06.09 Other forms of dyspnea (principal); R60.9 Edema, unspecified; I10 Essential (primary) hypertension
CPT/HCPCS: 93306

== ENCOUNTER 2024-01-24 09:21 | Day surgery (SDC) | payer MEDICARE, OTHER, SELFPAY ==
[2024-01-24 09:27] VITALS: BP 122/71; PULSE 82; RESP 16; TEMP 37; O2SAT 94; BMI 28.4
[2024-01-24] MEDS: Lactated Ringers 1,000 ML 15 ML IV (09:43)
[2024-01-24 10:32] VITALS: BP 122/71; PULSE 72; RESP 16; TEMP 36.4; O2SAT 93
--- NOTE | 2024-01-24 10:33 | DCINST_ITS ---
Discharge Instructions Diet Discharge Diet: No restrictions Activity Discharge Activity: Return to Normal Activity Dressing / Incision Call your doctor if you observe: Fever of 101 or Higher, Inability to urinate and Inability to have a bowel movement Follow Up Care Test Results: Test results from this visit will be discussed in further detail at your follow- up appointment, if applicable. Discharge Plan Admission Attending Provider: Deborah Rodriguez Primary Care Provider: Bev Valadez Instructions Print Language: [place] Discharge Orders/Prescriptions Prescriptions: Continued sertraline 100 mg tablet 100 mg PO DAILY ropinirole 1 mg tablet 1 mg PO QHS Patient Comments: TAKE 1 TO 2 TABLETS BY MOUTH AT BEDTIME fluticasone propionate [Flonase Allergy Relief] 50 mcg/actuation spray,suspension 2 spray intranasal DAILY Rx Instructions: administer into each nostril ascorbic acid (vitamin C) [Vitamin C] 500 mg tablet 500 mg PO QDAY Lactobac acidoph-fructooligos 500 million cell-50 mg tablet 1 tab PO QDAY pantoprazole 40 MG tablet 40 mg PO QHS GENTESA 75 mg 75 mg PO DAILY propranolol 10 mg tablet 10 mg PO BID Qty: 60 11RF propafenone 150 mg tablet 150 mg PO TID Qty: 270 3RF Rx Instructions: space evenly during waking hours Xarelto 15 mg tablet 15 mg PO DAILY Qty: 30 11RF Rx Instructions: must administer with evening meal buspirone 5 mg tablet 5 mg PO TID Qty: 90 2RF Referrals / Follow Up: Bev Valadez DO [Primary Care Provider] - Disposition Disposition (needs filled in before D/C Order can be placed): Home, Self Care
--- NOTE | 2024-01-24 10:34 | PCM.OPRPT ---
Report of Operation Date of Procedure: 01/24/24 Pre-Operative Diagnosis: Urinary tract infections, urinary incontinence Post-Operative Diagnosis: Same Surgery/Procedure Performed:: Cystoscopy and pelvic exam under anesthesia Surgeon: Deborah Rodriguez Type of Anesthesia: MAC Specimen's removed: None Description of Procedure: The patient is an 83-year-old female who was unable to undergo a cystoscopic examination in the office who presents for evaluation of urinary tract infections and incontinence. Informed consent was obtained. The patient was taken the operating room and placed on the operating room table. Anesthesia monitored the head, neck, airway, IV access and vital signs throughout the case. Once anesthesia was appropriately administered, the patient was placed into dorsolithotomy position and was prepped and draped in usual sterile fashion. On the external genitalia, there is erythema and some mild skin breakdown. This is likely related to the patient's recent complaints of diarrhea. On pelvic examination, there is no mass, no prolapse and no evidence of infection. There is no palpable stool in the rectal vault. The cystoscope was inserted through the urethra under direct visualization into the urinary bladder. There is no evidence of mass, erythema, ulceration or foreign body. The ureteral orifices were located in the correct anatomic position on the area of the trigone. The mucosa is thin consistent with the patient's age. At this time the bladder was emptied and the cystoscope was removed. The patient was awakened and taken to the recovery room in good condition. There were no complications during this procedure. Grafts/Implants Used: None Complications None Admit VTE Documentation VTE Present on Admission: Yes VTE Mechan Device Prophylaxis: SCD's VTE Pharm Prophylaxis ordered?: Yes
[2024-01-24 10:35] VITALS: BP 122/71; BP 99/58; PULSE 74; RESP 16; O2SAT 92
[2024-01-24 10:40] VITALS: BP 111/60; BP 122/71; PULSE 70; RESP 16; O2SAT 97
[2024-01-24 10:45] VITALS: BP 122/71; BP 133/71; PULSE 69; RESP 16; TEMP 36.3; O2SAT 98
[2024-01-24 11:25] VITALS: BP 119/103; BP 122/71; PULSE 72; RESP 16; TEMP 36.2; O2SAT 94
== END 2024-01-24 11:40 | disposition home or self-care (01) ==
LOC: SDC 09:21 → AC 09:23
PROVIDERS: PCP Internal Medicine; Referring Provider Urology; Visit Provider Urology
PROC: 0TJB8ZZ Inspection of Bladder, Via Natural or Artificial Opening Endoscopic (ICD-10-PCS; CPT 57410; principal; 2024-01-24 10:45)
DX: N39.0 Urinary tract infection, site not specified (principal); G20.A1 Parkinson's disease without dyskinesia, without mention of fluctuations; F31.9 Bipolar disorder, unspecified; F02.80 Dementia in other diseases classified elsewhere, unspecified severity, without behavioral disturbance, psychotic disturbance, mood disturbance, and anxiety; I48.0 Paroxysmal atrial fibrillation; R32 Unspecified urinary incontinence; I10 Essential (primary) hypertension; M81.0 Age-related osteoporosis without current pathological fracture; F41.1 Generalized anxiety disorder; K21.9 Gastro-esophageal reflux disease without esophagitis; Z79.01 Long term (current) use of anticoagulants; Z79.899 Other long term (current) drug therapy
CPT/HCPCS: 52000; J7120; J2405

== ENCOUNTER → 2024-06-24 | Outpatient (CLI) | payer MEDICARE, OTHER, SELFPAY ==
--- NOTE | 2024-06-24 12:15 | CT_ITS ---
STUDY: CT BRAIN WITHOUT CONTRAST REASON FOR EXAM: Female, 84 years old. Headache RADIATION DOSAGE (If Supplied By Facility): CTDIvol = ( 44.99 ) mGy, DLP = ( 812.98 ) mGycm TECHNIQUE: Transaxial CT imaging of the brain was performed without administration of intravenous contrast material. Individualized dose optimization techniques were used for this CT. COMPARISON: Comparison is made with prior study dated March 06, 2016. FINDINGS: Normal soft tissue structures. Normal calvarium. There is moderate cerebral atrophy with widening of the extra-axial spaces and ventricular dilatation. There are areas of decreased attenuation within the white matter tracts of the supratentorial brain, consistent with microvascular disease changes. Normal basal ganglia and thalami. Normal brainstem. There is mild cerebellar atrophy. There is no intracranial hemorrhage. There are no findings of an acute ischemic infarction. Atherosclerotic calcification of the vertebral arteries and cavernous portions of the internal carotid arteries bilaterally. Normal visualized paranasal sinuses. CT/Brain/Head without Contrast IMPRESSION: Chronic involutional changes of the brain. Electronically Signed: Raul Dailey MD at 12:32 EST ,
== END | disposition home or self-care (01) ==
LOC: CT 12:14
PROVIDERS: PCP Internal Medicine; Referring Provider Internal Medicine; Visit Provider Internal Medicine
DX: R51.9 Headache, unspecified (principal)
CPT/HCPCS: 70450

== ENCOUNTER → 2024-06-26 | Outpatient (CLI) | payer MEDICARE, OTHER, SELFPAY ==
[2024-06-26 13:05] LABS: Absolute Lymphocyte Count 1.99 X10^3/uL (0.83-4.51); Basophil# 0.02 X10^3/uL; Basophil% 0.2 % (0-1); Eosinophil# 0.33 X10^3/uL; Hematocrit 38.6 % (37-47); Hemoglobin 12.5 g/dL (12.0-15.0); Lymphocyte # 1.99 X10^3/ul (0.83-4.51); Lymphocyte % 24.3 % (19-41); Mean Corp Hgb Conc 32.4 g/dL (32-36); Mean Corpuscular Hgb 29.8 pg (27.0-32.0); Mean Corpuscular Volume 92.1 fL (81-99); Mean Platelet Vol. 9.2 fl (6.2-12.0); Monocyte# 0.78 X10^3/uL; Monocyte% 9.5 % (0-10); NRBC Flagged by Analyzer 0 % (0-5); Neutrophil # 5.04 X10^3/uL (2.7-7.7); Neutrophil % 61.8 % (47-70); Platelet Count 237 K/mm3 (150-450); RBC Distribution Width CV 14.4 % (11.6-14.6); Red Blood Count 4.19 M/mm3 (4.2-5.4); White Blood Count 8.2 K/mm3 (4.4-11.0)
[2024-06-26 13:35] LABS: ALB/GLOB Ratio 0.7 RATIO (0.9-2.4); AST(SGOT) 14 U/L (15-37); Alanine Aminotransfer ALT/SGPT 20 U/L (13-56); Albumin, Serum 3.2 g/dL (3.2-5.0); Alkaline Phosphatase 61 U/L (45-117); Anion Gap 3 (5-15); BUN 27 mg/dL (7-18); BUN/Creat Ratio 25.2 RATIO (10-20); Calcium,Total 9.3 mg/dL (8.5-10.1); Chloride 105 mmol/L (98-107); Creatinine, Serum 1.07 mg/dL (0.55-1.02); EST Glomerular Filtration Rate 52 mL/min (>60); Est Glom Filt Rate - Afr Amer 63 mL/min (>60); Globulin 4.4 g/dL (2.2-4.2); Glucose 95 mg/dL (74-106); Potassium 4.8 mmol/L (3.5-5.1); Protein, Total 7.6 g/dL (6.4-8.2); Sodium Level 136 mmol/L (136-145)
== END | disposition home or self-care (01) ==
LOC: LAB 12:41
PROVIDERS: PCP Internal Medicine; Referring Provider Internal Medicine; Visit Provider Internal Medicine
DX: R55 Syncope and collapse (principal)
CPT/HCPCS: 36415; 80053; 85025

== ENCOUNTER → 2024-07-02 | Outpatient (CLI) | payer MEDICARE, OTHER, SELFPAY ==
--- NOTE | 2024-07-02 13:55 | ECHOD_ITS ---
Reason For Study: SYNCOPE Procedure This was a 2D Doppler, Color Flow transthoracic echocardiogram. Exam performed in department. Left Ventricle Normal LV size. Left ventricular systolic function is normal. The left ventricular ejection fraction is 65 %. Stage 1 diastolic dysfunction. No regional wall motion abnormalities noted. Right Ventricle Normal RV size. Normal systolic function. Atria Normal left atrium. Normal right atrium. Mitral Valve Posterior leaflet diffuse mitral valve thickening. There is moderate to severe mitral annular calcification. Mild (1+) eccentric mitral valve insufficiency. Tricuspid Valve Normal tricuspid valve. Mild (1+) tricuspid valve insufficiency. Pulmonary artery systolic pressure is 44 mmHg. Aortic Valve Trisinus/trileaflet aortic valve. Mild diffuse aortic valve thickening. MMode/2D Measurements & Calculations LVIDd: 3.9 cm IVSd: 1.1 cm LVOT diam: 2.0 cm LVIDs: 2.1 cm LVPWd: 1.1 cm RVDd: 3.7 cm FS: 47.0 % LVOT area: 3.0 cm2 asc Aorta Diam: 3.3 cm LAV(MOD-bp): 64.7 ml LVAd ap4: 13.4 cm2 LAV(MOD-bp) Indexed: 36.8 ml/m2 LVLd ap4: 5.1 cm LAV(MOD-sp2): 61.4 ml EDV(MOD-sp4): 28.6 ml LAV(MOD-sp4): 62.8 ml EDV(sp4-el): 29.8 ml LVAs ap4: 5.8 cm2 LVLs ap4: 4.1 cm ESV(MOD-sp4): 7.9 ml ESV(sp4-el): 7.0 ml EF(MOD-sp4): 72.6 % EF(sp4-el): 76.4 % LVAd ap2: 14.3 cm2 SV(MOD-sp4): 20.8 ml SV(MOD-sp2): 20.0 ml LVLd ap2: 5.7 cm SI(MOD-sp4): 11.8 ml/m2 SI(MOD-sp2): 11.4 ml/m2 EDV(MOD-sp2): 29.4 ml EDV(sp2-el): 30.6 ml LVAs ap2: 7.0 cm2 LVLs ap2: 4.4 cm ESV(MOD-sp2): 9.4 ml ESV(sp2-el): 9.4 ml EF(MOD-sp2): 68.2 % SV(sp4-el): 22.8 ml Ao sinus diam: 3.[address] Junction: 2.2 cm LA A4 area: 21.0 cm2 LA dimension(2D): 4.6 cm RA A4 area: 12.1 cm2 TAPSE: 1.8 cm Time Measurements MV dec time: 0.40 sec Doppler Measurements & Calculations MV E max victoriano: 98.8 cm/sec Lat Peak E' Victoriano: 3.4 cm/sec Med Peak E' Victoriano: 4.0 cm/sec MV A max victoriano: 148.5 cm/sec E/E' lat: 28.8 E/E' med: 24.4 MV E/A: 0.66 MV V2 max: 142.0 cm/sec MV dec slope: 245.2 cm/sec2 Ao V2 max: 118.4 cm/sec MV max P.1 mmHg Ao max P.6 mmHg MV V2 mean: 81.2 cm/sec Ao V2 mean: 83.8 cm/sec MV mean P.0 mmHg Ao mean P.1 mmHg MV V2 VTI: 36.5 cm Ao V2 VTI: 23.6 cm MVA(VTI): 1.9 cm2 AV (velocity ratio): 0.99 FRANCISCA(I,D): 3.0 cm2 FRANCISCA(V,D): 2.7 cm2 LV V1 max: 108.1 cm/sec SV(LVOT): 70.2 ml PA V2 max: 123.4 cm/sec LV V1 max P.7 mmHg LV V1 mean P.5 mmHg LV V1 mean: 74.3 cm/sec LV V1 VTI: 23.4 cm TR max victoriano: 316.2 cm/sec TR max P.0 mmHg ECHO/Echo Complete Interpretation Summary Normal LV size. Left ventricular systolic function is normal. The left ventricular ejection fraction is 65 %. Stage 1 diastolic dysfunction. Pulmonary artery systolic pressure is 44 mmHg. Ordering Physician: Bev Valadez Referring Physician: Bev Valadez Performed By: Mariela Mcmanus RDCS and Student
== END | disposition home or self-care (01) ==
LOC: CVS 13:55
PROVIDERS: PCP Internal Medicine; Referring Provider Internal Medicine; Visit Provider Internal Medicine
DX: R55 Syncope and collapse (principal)
CPT/HCPCS: 93306

== ENCOUNTER → 2024-07-04 | Outpatient (CLI) | payer MEDICARE, OTHER, SELFPAY | END | disposition home or self-care (01) | LOC: PSN 08:35 | PROVIDERS: PCP Internal Medicine; Referring Provider Internal Medicine; Visit Provider Internal Medicine | DX: R55 Syncope and collapse (principal) | CPT/HCPCS: 93225; 93226 ==

== ENCOUNTER 2024-07-10 17:41 | Emergency (ER) | payer MEDICARE, OTHER, SELFPAY ==
[2024-07-10 17:42] VITALS: BP 135/79; PULSE 79; RESP 16; TEMP 36.6; O2SAT 97
--- NOTE | 2024-07-10 18:00 | EKG12_ITS ---
Test Reason : Blood Pressure : */* mmHG Vent. Rate : 74 BPM Atrial Rate : 74 BPM P-R Int : 196 ms QRS Dur : 74 ms QT Int : 370 ms P-R-T Axes : 38 47 23 degrees QTcB Int : 410 ms Normal sinus rhythm Normal ECG Confirmed by JOSAFAT TAO ([id number]), editor publications DELMY KIRKPATRICK ([id number]) on 07/11/2024 11:50:22 AM Referred By: Confirmed By: JOSAFAT TAO
--- NOTE | 2024-07-10 18:00 | CT_ITS ---
STUDY: CTA HEAD AND NECK WITH CONTRAST REASON FOR EXAM: Female, 84 years old. fall, head and neck injury RADIATION DOSAGE (If Supplied By Facility): CTDIvol = ( 27.45 ) mGy, DLP = ( 1425.90 ) mGycm TECHNIQUE: CT angiography was performed with a multi-detector CT scanner. Data acquisition was obtained from the skull base through the vertex following intravenous administration of IV 100mL [id number]-[id number]. MIP images were reconstructed from the axial data set. Post-processing of the angiographic images was performed, with multiplanar reformation and 3D reconstruction. Individualized dose optimization techniques were used for this CT. COMPARISON: No relevant priors. FINDINGS: Focal densities in the left apex as much as 1.4 cm most consistent with scars. Small neoplasm not excluded. Consider CT of the chest. Normal bilateral petrous carotid arteries. There is calcified plaque formation of the right cavernous carotid artery, with a mild stenosis (less than 50%). There is calcified plaque formation of the left cavernous carotid artery, with a mild stenosis (less than 50%). Normal right A1 segments of the anterior cerebral artery. Normal left A1 segments of the anterior cerebral artery. Normal intact anterior communicating artery (ACOM). Normal bilateral A2 segments of the anterior cerebral arteries. Normal right M1 and M2 segments of the middle cerebral arteries, with a normal M1 bifurcation. Normal left M1 and M2 segments of the middle cerebral arteries, with a normal M1 bifurcation. Normal right posterior communicating artery (PCOM). Normal left posterior communicating artery (PCOM). Normal bilateral vertebral arteries. Normal basilar artery with a normal basilar bifurcation. The visualized bilateral superior cerebellar (SCA) arteries are normal. Normal bilateral P1, P2 and visualized P3 segments of the posterior cerebral arteries. There is no demonstrated aneurysm of the elim ira of Fernandez. There is no demonstrated abnormality of the visualized brain. AORTIC ARCH: There is atherosclerotic calcific plaque formation of the aortic arch and great vessels arising from the aortic arch, without a hemodynamically significant stenosis. There is a normal origin of the brachiocephalic, left common carotid, and left subclavian arteries. RIGHT CAROTID ARTERIES: Normal right common carotid artery (CCA). There is mild atherosclerotic plaque formation with minimal narrowing of the right carotid bulb. There is mild atherosclerotic plaque formation of the origin of the right internal carotid artery with less than 50% cross sectional diameter stenosis. Normal visualized cervical portion of the right internal carotid artery. Normal origin of the right external carotid artery (ECA). LEFT CAROTID ARTERIES: Normal left common carotid artery (CCA). There is mild atherosclerotic plaque formation with minimal narrowing of the left carotid bulb. There is mild atherosclerotic plaque formation of the origin of the left internal carotid artery with less than 50% cross sectional diameter stenosis. Normal visualized cervical portion of the left internal carotid artery. Normal origin of the left external carotid artery (ECA). VERTEBRAL ARTERIES: Normal bilateral vertebral arteries. CT/CTA Head AND Neck W/ Contrast IMPRESSION: No acute abnormalities. No large vessel occlusion. Calcified plaque of the bilateral carotid bulbs, bilateral ICA origins, and cavernous carotid arteries without significant narrowing. Electronically Signed: Ren Donovan MD at 20:05 EST ,
--- NOTE | 2024-07-10 18:05 | EX.ED.DYSGE1 ---
HPI History of Present Illness Chief Complaint: Head Injury Detail of Chief Complaint: Head and neck pain Informant: patient Narrative Narrative: Patient presents with head neck pain x 3 weeks. Patient states that she fell 3 weeks ago out of her wheelchair onto the kitchen floor causing a head injury that required suture repair. She was seen at [facility] where she had a CT of her brain and she was told it was unremarkable. Patient told she had a concussion and a fractured nose. Since that time she feels off balance. She continues to have headache and upper neck pain. She denies any pain into the arms or paresthesias. Intermittently has had some weakness in the left hand. Patient states that normally she does not walk and uses a wheelchair to transfer. Her daughter then noted to me that she can walk but she has had some issues with her right hip. [facility] Medical History Wears dentures Incontinence History of echocardiogram History of edema Cardiology follow-up encounter Sprain of right hand Right wrist sprain CHARMAINE (generalized anxiety disorder) Cancer Depression Osteoporosis Atrial fibrillation Hypertension Anxiety Debility Lumbar compression fracture Thoracic compression fracture Intractable back pain Parkinsons disease Dementia Essential hypertension Intestinal malabsorption, unspecified Paroxysmal A-fib Vertigo C. difficile diarrhea Restless leg Vomiting Iron deficiency Chronic use of benzodiazepine for therapeutic purpose Fall Diverticulitis large intestine Compression fracture of L1 lumbar vertebra Hypophosphatemia Hypomagnesemia Severe sepsis History of CVA (cerebrovascular accident) Hypokalemia Dehydration Sepsis Iron deficiency anemia HAP (hospital-acquired pneumonia) Dysphagia Bipolar disorder Anxiety Anemia Nausea and vomiting Leukocytosis Syncope History of breast cancer GERD (gastroesophageal reflux disease) Cephalalgia Home Medications ?Medication ?Instructions ?Recorded ?Last Taken ?Type pantoprazole 40 mg tablet,delayed 40 mg PO QHS 06/02/20 Unknown History release sertraline 100 mg tablet 100 mg PO DAILY 04/04/22 Unknown History ropinirole 1 mg tablet 1 mg PO QHS 05/31/23 Unknown History propranolol 10 mg tablet 10 mg PO BID #60 tabs 10/11/23 Unknown Rx propafenone 150 mg tablet 150 mg PO TID #270 tabs 10/31/23 Unknown Rx fluticasone propionate 50 2 spray intranasal DAILY 11/06/23 Unknown History mcg/actuation nasal spray,suspension (Flonase Allergy Relief) Lactobacillus acidophilus 500 1 tab PO QDAY 12/31/23 Unknown History million cell-fructooligosac 50 mg tablet ascorbic acid (vitamin C) 500 mg 500 mg PO QDAY 12/31/23 Unknown History tablet (Vitamin C) rivaroxaban 15 mg tablet (Xarelto) 15 mg PO DAILY #30 tabs 01/07/24 Unknown Rx GENTESA 75 mg PO DAILY 01/17/24 Unknown History buspirone 5 mg tablet 5 mg PO TID #90 tabs 03/27/24 Unknown Rx trimethoprim 100 mg tablet 100 mg PO QDAY 03/27/24 Unknown History fesoterodine 4 mg tablet,extended 4 mg PO QDAY 05/06/24 Unknown History release 24 hr cephalexin 500 mg capsule 500 mg PO Q6 #28 CAPSULES 07/10/24 Unknown Rx phenazopyridine 200 mg tablet 200 mg PO TID 6 doses #6 tabs 07/10/24 Unknown Rx (Pyridium) Allergy/AdvReac Type Severity Reaction Status Date / Time clonazepam Allergy Intermediate Other Verified 05/06/24 11:32 tramadol Allergy Intermediate Other Verified 05/06/24 11:32 meclizine (From Antivert) Allergy Unknown Unknown Verified 05/06/24 11:32 atorvastatin calcium (From Allergy Unknown Verified 05/06/24 11:32 Lipitor) Penicillins Allergy Hives Verified 05/06/24 11:32 propoxyphene HCl (From Allergy Other Verified 05/06/24 11:32 Darvon) Sulfa (Sulfonamide Allergy Unknown Verified 05/06/24 11:32 Antibiotics) furosemide AdvReac Severe Increased Verified 05/06/24 11:32 urination and diarrhea codeine AdvReac Upset Verified 05/06/24 11:32 Stomach hydrocodone AdvReac Upset Verified 05/06/24 11:32 Stomach iron AdvReac Vomiting Verified 05/06/24 11:32 oxycodone (From Percocet) AdvReac Vomiting Verified 05/06/24 11:32 scopolamine AdvReac DIZZINESS Verified 05/06/24 11:32 Family History Brother HIV (human immunodeficiency virus infection) Sister Cancer Father CVA (cerebral vascular accident) Other Breast cancer Hypertension Surgical History History of appendectomy History of cholecystectomy History of bilateral mastectomy Hip fracture, right History of mastectomy History of hysterectomy Social History household members: none current occupational status: retired Smoking Status: Never smoker alcohol intake: never substance use type: does not use what type of physical activity do you participate in: none seatbelt use: always do you feel safe at home: Yes additional social history: recently ROS ROS ED Review of Systems ROS Unobtainable: other Constitutional Constitutional ED: Reports lethargy; Denies chills, fever(s), sweats or weight loss Eyes Eyes: Denies blurry vision, change in vision or diplopia ENT ENT ED: Denies rhinorrhea or sore throat Cardiovascular Cardiovascular: Denies chest pain, orthopnea or racing heartbeat Respiratory/Chest Respiratory/Chest: Denies cough, dyspnea, dyspnea on exertion, orthopnea or sputum Gastrointestinal Gastrointestinal: Denies abdominal pain, diarrhea, nausea or vomiting Genitourinary Genitourinary ED: Denies dysuria, hematuria or urinary frequency Musculoskeletal Musculoskeletal: Reports neck pain; Denies arthralgias, back pain or myalgias Integumentary Denies abscess, Abrasions or rash Neurologic Neurologic: Reports headache(s); Denies weakness Psychiatric Psychiatric: Denies anxiety, depression or suicidal thoughts Endocrine Endocrinology: Denies polydipsia, polyphagia or polyuria Hematologic/Lymphatic Hematologic/Lymphatic: Denies easy bleeding, easy bruising or lymphadenopathy Allergic/Immunologic Allergic/Immunologic ED: Denies mouth swelling, tongue swelling or urticaria EXAM Physical Exam Const Vital Signs: 07/10/24 17:42 07/10/24 19:07 07/10/24 19:10 Temperature 97.8 F Temperature Source Temporal Pulse Rate 79 Respiratory Rate 16 Respiratory Effort Normal Non-Labored Normal Respiratory Depth Normal Normal Respiratory Pattern Normal Normal Blood Pressure 135/79 H Blood Pressure Mean 97 Pulse Ox 97 95 Oxygen Delivery Method Room Air Room Air Room Air 07/10/24 19:41 07/10/24 21:00 07/10/24 21:51 Temperature 97.7 F L Temperature Source Pulse Rate 69 72 71 Respiratory Rate 16 18 18 Respiratory Effort Respiratory Depth Respiratory Pattern Blood Pressure 141/67 H 149/82 H 148/64 H Blood Pressure Mean 91 104 92 Pulse Ox 97 96 96 Oxygen Delivery Method Room Air Room Air Positive well nourished and well developed General Appearance ED: well developed and NAD HEENT Reports TM's clear and moist mucous membranes normocephalic and atraumatic; Negative for trauma or tenderness Tympanic Membrane ED: Yes TM's clear Eyes PERRL and EOMs intact bilaterally General Eye ED: Negative for pale conjunctiva or scleral icterus Neck no lymphadenopathy, supple and no JVD Neck Narrative: Tenderness palpation over C1 and C2 area of the cervical spine. No bony step-offs or depressions noted. Good active range of motion General: Negative for tenderness Chest Wall inspection of chest normal and palpation of chest normal Chest: Negative for tenderness Resp normal respiratory effort and clear to auscultation bilaterally Effort and Inspection: Negative for respiratory distress or pain with movement Auscultation: Negative for rhonchi, wheezes or diminished lung sounds Cardio regular rate, regular rhythm, S1 normal heart sound, S2 normal heart sound and no murmurs Peripheral Pulses: pulses 2+ throughout GI normal to inspection, nondistended, normoactive bowel sounds, soft to palpation, non-tender, non-distended and no masses Back/Spine no CVA tenderness and no thoracic nor lumbar tenderness Extremity normal to inspection General Extremety ED: Negative for edema General Extremity: Negative for edema Neuro oriented x3, CN's II-XII intact bilaterally, no sensory deficits noted and gait normal Sensorium / Orientation: awake, alert, oriented to person, oriented to place and oriented to time Motor Exam: strength 5/5 throughout and strength abnormal Psych mental status grossly normal Skin no rashes or lesions noted and no wounds MDM MDM MDM Narrative Medical decision making narrative: Patient presents with complaint of dizziness and head neck pain after sustaining a fall 3 weeks ago. She was seen at [facility] where she had a CT of her brain. Since that time she continues to complain of dizziness and feeling off balance. She complains of neck pain. Presents to the ER for further evaluation at the request of her primary care physician. Patient had an IV line established. CBC with differential white count of 9.8 with hemoglobin of 13.2 and platelet count of 232. Chemistries unremarkable. BUN 15 and creatinine 1.03. Urinalysis positive for 500 leukocyte esterase and greater than 100 WBCs and +1 bacteria. Urine culture sent. Patient started on Keflex. CTA of the head and neck unremarkable. Patient also had a CT of the cervical spine that showed no fractures. This point suspect likely concussion. Patient also has history of vertigo. Will treat for UTI. Advised to follow-up with her urologist whom she sees for bladder issues and frequent UTIs. Lab Data Attestation: I reviewed the patient's lab results. Labs: Laboratory Results - last 24 hr 07/10/24 07/10/24 17:58 18:57 WBC 9.8 RBC 4.34 Hgb 13.2 Hct 39.2 MCV 90.3 MCH 30.4 MCHC 33.7 RDW Std Deviation 45.5 H RDW Coeff of Junaid 13.7 Plt Count 232 MPV 9.5 Immature Gran % (Auto) 0.300 Neut % (Auto) 66.0 Lymph % (Auto) 23.9 Mobile % (Auto) 8.0 Eos % (Auto) 1.6 Baso % (Auto) 0.2 Absolute Neuts (auto) 6.5 Absolute Lymphs (auto) 2.34 Nucleated RBC % 0 Sodium 136 Potassium 4.0 Chloride 105 Carbon Dioxide 26.0 Anion Gap 6 BUN 15 Creatinine 1.03 H Est GFR (MDRD) Af Amer 66 Est GFR (MDRD) Non-Af 55 L BUN/Creatinine Ratio 14.6 Glucose 106 Calcium 9.1 Troponin I High Sens 6 Urine Color Yellow Urine Clarity Cloudy Urine pH 6.0 Ur Specific [place] 1.015 Urine Protein 30 H Urine Glucose (UA) Normal Urine Ketones Negative Urine Occult Blood 150 H Urine Nitrite Negative Urine Bilirubin Negative Urine Urobilinogen Normal Ur Leukocyte Esterase 500 H Urine RBC 5-10 SEEN Urine WBC >100 SEEN Ur Squamous Epith Cells 0 SEEN Urine Bacteria 1+ Urine Mucus 0 SEEN Radiography Diagnostic Testing: Clinical Impression(s) from Imaging Studies Head/Neck CTA 07/10/24 18:00 IMPRESSION: No acute abnormalities. No large vessel occlusion. Calcified plaque of the bilateral carotid bulbs, bilateral ICA origins, and cavernous carotid arteries without significant narrowing. Electronically Signed: Ren Donovan MD at 20:05 EST , ADDENDUM: 07/10/242114 IMPRESSION: Chronic age related changes and atrophy. No significant change. No acute abnormality. Electronically Signed: Ren Donovan MD at 21:08 EST , Cervical Spine CT 07/10/24 20:59 IMPRESSION: No evidence of acute cervical spinal fracture or spondylolisthesis. Densities in the left pulmonary apex. Electronically Signed: Ren Donovan MD at 21:43 EST , EKG Initial EKG: Attestation: I personally reviewed and interpreted this EKG as follows: Comments: Sinus rhythm with rate of 74 bpm with no acute ST segment changes Discharge Plan Triage Chief Complaint: Head Injury ED Provider: Jaelyn Bang Dx/Rx/DC Orders Clinical Impression: Concussion, Dizziness, Acute UTI Instructions: Urinary Tract Infections in Women, ED Concussion, ED Head Injury (Adult) Prescriptions: New cephalexin 500 mg capsule 500 mg PO Q6 Qty: 28 0RF phenazopyridine [Pyridium] 200 mg tablet 200 mg PO TID Qty: 6 0RF No Action sertraline 100 mg tablet 100 mg PO DAILY ropinirole 1 mg tablet 1 mg PO QHS Patient Comments: TAKE 1 TO 2 TABLETS BY MOUTH AT BEDTIME fluticasone propionate [Flonase Allergy Relief] 50 mcg/actuation spray,suspension 2 spray intranasal DAILY Rx Instructions: administer into each nostril trimethoprim 100 mg tablet 100 mg PO QDAY buspirone 5 mg tablet 5 mg PO TID Qty: 90 2RF fesoterodine 4 mg tablet extended release 24 hr 4 mg PO QDAY ascorbic acid (vitamin C) [Vitamin C] 500 mg tablet 500 mg PO QDAY Lactobac acidoph-fructooligos 500 million cell-50 mg tablet 1 tab PO QDAY pantoprazole 40 MG tablet 40 mg PO QHS GENTESA 75 mg 75 mg PO DAILY propranolol 10 mg tablet 10 mg PO BID Qty: 60 11RF propafenone 150 mg tablet 150 mg PO TID Qty: 270 3RF Rx Instructions: space evenly during waking hours Xarelto 15 mg tablet 15 mg PO DAILY Qty: 30 11RF Rx Instructions: must administer with evening meal Primary Care Provider: Bev Valadez Referrals: Deborah Rodriguez MD [Med Staff - Active Staff] - 3-5 Days Bev Valadez DO [Primary Care Provider] - 3-5 Days Print Language: [place] Disposition Disposition: Home, Self Care Discharge Date/Time: 07/10/24 22:10
[2024-07-10 18:18] LABS: Absolute Lymphocyte Count 2.34 X10^3/uL (0.83-4.51); Absolute Neutrophil Count 6.5 X10^3/uL (2.0-7.7); Basophil# 0.02 X10^3/uL; Basophil% 0.2 % (0-1); Eosinophil# 0.16 X10^3/uL; Eosinophils% 1.6 % (0-5); Hematocrit 39.2 % (37-47); Hemoglobin 13.2 g/dL (12.0-15.0); Lymphocyte # 2.34 X10^3/ul (0.83-4.51); Lymphocyte % 23.9 % (19-41); Mean Corp Hgb Conc 33.7 g/dL (32-36); Mean Corpuscular Hgb 30.4 pg (27.0-32.0); Mean Corpuscular Volume 90.3 fL (81-99); Mean Platelet Vol. 9.5 fl (6.2-12.0); Monocyte# 0.78 X10^3/uL; NRBC Flagged by Analyzer 0 % (0-5); Neutrophil # 6.45 X10^3/uL (2.7-7.7); Platelet Count 232 K/mm3 (150-450); RBC Distribution Width CV 13.7 % (11.6-14.6); RBC Distribution Width SD 45.5 fl (35.1-43.9); Red Blood Count 4.34 M/mm3 (4.2-5.4); White Blood Count 9.8 K/mm3 (4.4-11.0)
[2024-07-10 18:35] LABS: Anion Gap 6 (5-15); BUN 15 mg/dL (7-18); BUN/Creat Ratio 14.6 RATIO (10-20); Calcium,Total 9.1 mg/dL (8.5-10.1); Chloride 105 mmol/L (98-107); Creatinine, Serum 1.03 mg/dL (0.55-1.02); EST Glomerular Filtration Rate 55 mL/min (>60); Est Glom Filt Rate - Afr Amer 66 mL/min (>60); Glucose 106 mg/dL (74-106); Sodium Level 136 mmol/L (136-145); Troponin-I HS 6 pg/mL (3.0-54.0)
[2024-07-10 19:10] VITALS: O2SAT 95; BMI 28.9
[2024-07-10 19:15] LABS: Mucous, Urine 0 SEEN /hpf (<or=2+); Squamous Epithelial Cells - UA 0 SEEN /hpf (5-10)
[2024-07-10 19:16] LABS: Color, Urine Yellow (Yellow); Glucose, Dipstick Normal (Normal); Ketone-Dipstick Negative (Negative); Leukocyte Esterase-Dipstick 500 /ul (Negative); Nitrite-Dipstick Negative (Negative); Occult Blood-Urine 150 /ul (Negative); Protein-Dipstick 30 mg/dl (Negative); Specific Gravity, Urine 1.015 (1.002-1.030); Urine Bilirubin Dipstick Negative (Negative); Urine Clarity Cloudy (Clear); Urine Urobilinogen Normal (Normal)
[2024-07-10 19:40] LABS: Bacteria 1+ /hpf (None Seen); White Blood Cells >100 SEEN /hpf (0-5)
[2024-07-10 19:41] VITALS: BP 141/67; PULSE 69; RESP 16; O2SAT 97
[2024-07-10 19:41] LABS: Red Blood Cells-Urine 5-10 SEEN /hpf (0-5)
[2024-07-10] MEDS: Cephalexin 250 MG Capsule 500 MG PO (20:28)
--- NOTE | 2024-07-10 20:59 | CT_ITS ---
EXAM: CT CERVICAL SPINE WITHOUT INTRAVENOUS CONTRAST CLINICAL INDICATION: fall, neck pain TECHNIQUE: Helically acquired images were obtained of the cervical spine without intravenous contrast. 2D reformatted images were reviewed. This CT exam was performed using one or more of the following dose reduction techniques: automated exposure control, adjustment of the mA and/or kV according to patient size, and/or use of iterative reconstruction technique. CONTRAST: IV 100mL [id number] RADIATION DOSE: CTDIvol = 16.59 mGy, DLP = 578.92 mGy-cm COMPARISON: No relevant prior studies available. FINDINGS: VERTEBRAE: Unremarkable. No fracture. No traumatic subluxation. No discrete lytic or blastic abnormality. Normal alignment. Normal craniocervical junction and cervicothoracic junction. DISCS/SPINAL CANAL/NEURAL FORAMINA: Unremarkable. Disc heights are preserved. No critical stenosis. SOFT TISSUES: Unremarkable. No prevertebral soft tissue swelling. LYMPH NODES: Unremarkable. No cervical adenopathy. LUNG APICES: 2 separate spiculated densities in the left apex most consistent with scars. Largest measures 1.5 cm greatest dimension. Small neoplasms are not excluded. CT of the chest suggested. CT/Spine Cervical without Contras IMPRESSION: No evidence of acute cervical spinal fracture or spondylolisthesis. Densities in the left pulmonary apex. Electronically Signed: Ren Donovan MD at 21:43 EST ,
[2024-07-10 21:00] VITALS: BP 149/82; PULSE 72; RESP 18; O2SAT 96
[2024-07-10 21:51] VITALS: BP 148/64; PULSE 71; RESP 18; TEMP 36.5; O2SAT 96
[2024-07-10] MEDS: Phenazopyridine 95 MG Tablet 190 MG PO (22:02)
== END 2024-07-10 22:10 | disposition home or self-care (01) ==
PROVIDERS: Emergency Provider Emergency Medicine; PCP Internal Medicine; Visit Provider Emergency Medicine
DX: S06.0X0A Concussion without loss of consciousness, initial encounter (principal); G20.A1 Parkinson's disease without dyskinesia, without mention of fluctuations; F02.84 Dementia in other diseases classified elsewhere, unspecified severity, with anxiety; F02.83 Dementia in other diseases classified elsewhere, unspecified severity, with mood disturbance; I48.0 Paroxysmal atrial fibrillation; N39.0 Urinary tract infection, site not specified; B96.20 Unspecified Escherichia coli [E. coli] as the cause of diseases classified elsewhere; Z16.19 Resistance to other specified beta lactam antibiotics; W05.0XXA Fall from non-moving wheelchair, initial encounter; F41.1 Generalized anxiety disorder; I10 Essential (primary) hypertension; R32 Unspecified urinary incontinence; K21.9 Gastro-esophageal reflux disease without esophagitis; M81.0 Age-related osteoporosis without current pathological fracture; Z87.19 Personal history of other diseases of the digestive system; Z86.73 Personal history of transient ischemic attack (TIA), and cerebral infarction without residual deficits; Z85.3 Personal history of malignant neoplasm of breast; Z86.19 Personal history of other infectious and parasitic diseases; Z79.01 Long term (current) use of anticoagulants; Z88.0 Allergy status to penicillin; Z88.2 Allergy status to sulfonamides; Z90.49 Acquired absence of other specified parts of digestive tract; Z90.13 Acquired absence of bilateral breasts and nipples; Z79.899 Other long term (current) drug therapy
CPT/HCPCS: 70496; 70498; 72125; 80048; 81001; 84484; 85025; 87077; 87086; 87088; 87186; 93005; 99284; Q9967; A4216

== ENCOUNTER → 2024-12-09 | Outpatient (CLI) | payer MEDICARE, OTHER, SELFPAY ==
[2024-12-09 15:00] LABS: Color, Urine Yellow (Yellow); Glucose, Dipstick Normal (Normal); Ketone-Dipstick Negative (Negative); Leukocyte Esterase-Dipstick Negative /ul (Negative); Nitrite-Dipstick Negative (Negative); Occult Blood-Urine 10 /ul (Negative); Protein-Dipstick 15 mg/dl (Negative); Urine Bilirubin Dipstick Negative (Negative); Urine Clarity Clear (Clear); Urine Urobilinogen Normal (Normal); Urine pH 6.5 (5.0 - 8.0)
== END | disposition home or self-care (01) ==
LOC: LABSPEC 14:36
PROVIDERS: PCP Internal Medicine
DX: R39.9 Unspecified symptoms and signs involving the genitourinary system (principal)
CPT/HCPCS: 81002; 87086; 87088

== ENCOUNTER → 2025-08-06 | Outpatient (CLI) | payer MEDICARE, OTHER, SELFPAY ==
[2025-08-06 17:53] LABS: Color, Urine Straw (Yellow); Glucose, Dipstick Normal (Normal); Ketone-Dipstick Negative (Negative); Leukocyte Esterase-Dipstick Negative /ul (Negative); Nitrite-Dipstick Negative (Negative); Occult Blood-Urine 10 /ul (Negative); Protein-Dipstick Negative (Negative); Specific Gravity, Urine 1.010 (1.002-1.030); Urine Bilirubin Dipstick Negative (Negative)
== END | disposition home or self-care (01) ==
LOC: HHLAB 16:05
PROVIDERS: PCP Internal Medicine; Visit Provider Urology
DX: N39.0 Urinary tract infection, site not specified (principal); I48.0 Paroxysmal atrial fibrillation; M51.34 Other intervertebral disc degeneration, thoracic region; D50.9 Iron deficiency anemia, unspecified
CPT/HCPCS: 81002; 87077; 87086; 87088; 87186

== ENCOUNTER → 2025-08-10 | Outpatient (CLI) | payer MEDICARE, OTHER, SELFPAY ==
[2025-08-10 17:55] LABS: Hematocrit 41.4 % (37-47); Hemoglobin 13.4 g/dL (12.0-15.0); Immature Granulocytes Count 0.060 X10^3/uL (0.0-0.0); Mean Corp Hgb Conc 32.4 g/dL (32-36); Mean Corpuscular Volume 91.6 fL (81-99); Mean Platelet Vol. 9.8 fl (6.2-12.0); NRBC Flagged by Analyzer 0 % (0-5); Platelet Count 256 K/mm3 (150-450); RBC Distribution Width CV 14.6 % (11.6-14.6); RBC Distribution Width SD 49.7 fl (35.1-43.9); Red Blood Count 4.52 M/mm3 (4.2-5.4); White Blood Count 11.3 K/mm3 (4.4-11.0)
[2025-08-10 19:45] LABS: AST(SGOT) 17 U/L (<=31); Alanine Aminotransfer ALT/SGPT 9 U/L (<=34); Albumin, Serum 4.0 g/dL (3.4-4.8); Alkaline Phosphatase 61 U/L (35-104); Anion Gap 15 (7-18); BUN 15 mg/dL (4-19); BUN/Creat Ratio 14.8 RATIO (10-20); CRP 3.11 mg/L (0.0-3.0); Calcium,Total 10.0 mg/dL (7.6-11.0); Carbon Dioxide 23.1 mmol/L (20.0-29.0); Chloride 100 mmol/L (96-106); Cholesterol 223 mg/dL (<=200); Globulin 3.5 g/dL (2.2-4.2); Glucose 114 mg/dL (70-99); Low Density Lipoprotein Calc. 123 mg/dL; Potassium 4.2 mmol/L (3.5-5.1); Triglycerides 104 mg/dL; Very Low Density Lipoprotein 21 mg/dL (5-40); cholesterol:hdl ratio screen 2.71
== END | disposition home or self-care (01) ==
LOC: CIMLAB 15:40
PROVIDERS: PCP Internal Medicine; Referring Provider Nurse Practitioner Family; Visit Provider Nurse Practitioner Family
DX: I48.0 Paroxysmal atrial fibrillation (principal); D64.9 Anemia, unspecified; I10 Essential (primary) hypertension
CPT/HCPCS: 36415; 80053; 80061; 84443; 85025; 86140